=== PATIENT | male | born 1945 | race Caucasian/White ===

== ENCOUNTER → 2020-07-06 08:12 | Outpatient (BNVA) | payer MEDICARE, SELFPAY | PROVIDERS: PCP Family Medicine; Referring Provider Family Medicine; Visit Provider Internal Medicine Endocrinology, Diabetes & Metabolism | DX: Z13.89 Encounter for screening for other disorder (principal) | CPT/HCPCS: 99212 ==

== ENCOUNTER → 2020-10-03 08:41 | Outpatient (BNVA) | payer MEDICARE, OTHER, SELFPAY | PROVIDERS: PCP Family Medicine; Visit Provider Internal Medicine Endocrinology, Diabetes & Metabolism | DX: E11.21 Type 2 diabetes mellitus with diabetic nephropathy (principal); E11.42 Type 2 diabetes mellitus with diabetic polyneuropathy; E11.22 Type 2 diabetes mellitus with diabetic chronic kidney disease; I12.9 Hypertensive chronic kidney disease with stage 1 through stage 4 chronic kidney disease, or unspecified chronic kidney disease; N18.30 Chronic kidney disease, stage 3 unspecified; E66.9 Obesity, unspecified; E78.5 Hyperlipidemia, unspecified; Z79.4 Long term (current) use of insulin | CPT/HCPCS: 82947; 99212 ==

== ENCOUNTER → 2020-10-24 11:02 | Outpatient (BNVA) | payer MEDICARE, SELFPAY | PROVIDERS: PCP Family Medicine; Visit Provider Surgery Vascular Surgery | DX: I73.9 Peripheral vascular disease, unspecified (principal); I83.11 Varicose veins of right lower extremity with inflammation; I73.00 Raynaud's syndrome without gangrene | CPT/HCPCS: 99202 ==

== ENCOUNTER 2020-11-15 09:24 | Outpatient (REF) | payer MEDICARE, OTHER, SELFPAY ==
--- NOTE | ~2020-11-15 | US_ITS ---
EXAMINATION: RIGHT and LEFT LOWER EXTREMITY VENOUS ULTRASOUND (Reflux Exam) CLINICAL INDICATION: leg pain and varicose veins. COMPARISON: None. TECHNIQUE: Color flow triplex imaging and compression Doppler was performed to evaluate both the deep and the superficial systems bilaterally. To evaluate the superficial system, the examination was performed in the upright position. Color-flow Doppler ultrasound and compression ultrasound were utilized. In addition, maneuvers were utilized to demonstrate reflux. FINDINGS: 1. DEEP VENOUS ULTRASOUND OF THE RIGHT LOWER EXTREMITY: Respiratory variation, normal compression and augmented flow are noted in the right common femoral vein as well as the right popliteal vein and there is no evidence of deep venous thrombosis at these locations. There is no evidence of reflux in the deep system in either the common femoral vein or the popliteal vein. There is no evidence of a Agee's cyst. 2. SUPERFICIAL ULTRASOUND WITH DOPPLER OF RIGHT LOWER EXTREMITY: The right great saphenous vein at the saphenofemoral junction measures 7 mm, at the mid thigh 2 mm, [id number] 2 mm, [id number]-[id number] 4 mm, at mid calf 4 mm and at the ankle measures 4 mm. There is right greater saphenous vein reflux measuring 2 cm above the knee. The right small saphenous vein measures 2 mm and shows no reflux. Or perforators in the proximal calf and at the knee measuring 2 and 4 mm that do not demonstrate reflux. There are varicosities in the thigh and calf 4 mm and do not demonstrate reflux. 3. DEEP VENOUS ULTRASOUND OF THE LEFT LOWER EXTREMITY: Respiratory variation, normal compression and augmented flow are noted in the left common femoral vein as well as the left popliteal vein and there is no evidence of deep venous thrombosis at these locations. There is no evidence of reflux in the deep system in either the common femoral vein or the popliteal vein. . There is no evidence of a Agee's cyst. 4. SUPERFICIAL ULTRASOUND WITH DOPPLER OF LEFT LOWER EXTREMITY: Left great saphenous vein at the saphenofemoral junction measures 8 mm, at the mid thigh 4 mm, [id number]-[id number] 5 mm, okhqj-dos-rwtj 5 mm, at mid calf 4 mm and at the ankle measures 4 mm. There is left greater saphenous vein reflux measuring 0.9 seconds in the mid thigh, 0.4 seconds above the knee, 0.3 seconds below the knee and 2.8 seconds at the ankle. There is an accessory medial left greater saphenous vein that measures 4 mm and does not demonstrate reflux. The left small saphenous vein measures 2-3 mm and shows no reflux. As a dog behaviorist in the calf that measures 3 mm and does not demonstrate reflux. There is a varicosity in the proximal calf that measures 3 mm and demonstrates 0.4 seconds reflux. There are other small 3 and 4 mm varicosities in the high calf that do not demonstrate reflux. US/US venous duplex LE BI IMPRESSION: 1. No evidence of reflux or thrombus in the common femoral veins or popliteal veins bilaterally. 2. Bilateral greater saphenous vein reflux, left greater than right.
--- NOTE | ~2020-11-15 | US_ITS ---
EXAMINATION: NONINVASIVE ASSESSMENT OF THE ARTERIES OF BOTH LOWER EXTREMITIES WITH PVR EXAM AND BILATERAL LOWER EXTREMITY DUPLEX CLINICAL INFORMATION: Peripheral vascular disease TECHNIQUE: Ankle pulse volume recordings, ankle pressure measurements and ankle brachial indices were obtained of the lower extremity arterial system bilaterally in addition to duplex Doppler techniques with wave form analysis and measurement of velocities in the common femoral, profunda femoral, superficial femoral, popliteal and tibial arteries. The study was performed only at rest. COMPARISON: None FINDINGS: a) AT REST: RIGHT LE. The right ankle-brachial index is: 1 2. Right ankle pressure: normal. 3. Right ankle PVR waveform: normal. 4. Right direct duplex Doppler findings: Mild atherosclerotic disease with vessel wall calcification. No visible luminal narrowing/stenosis. * Common femoral artery: 134 cm/s, Diastolic flow reversal: No. Biphasic. * Superficial femoral artery (proximal, mid, distal): 103, 117 and 107 cm/s, Diastolic flow reversal: No. Biphasic. * Popliteal artery: 72 cm/s, Diastolic flow reversal: No. Biphasic. * Posterior tibial artery: 111 cm/s, Diastolic flow reversal: No. Biphasic. LEFT LE. The left ankle-brachial index is: 1.1 2. Left ankle pressure: normal. 3. Left ankle PVR waveform: normal. 4. Left direct duplex Doppler findings: Mild atherosclerotic disease with vessel wall calcification. No visible luminal narrowing/stenosis. * Common femoral artery: 119 cm/s, Diastolic flow reversal: Yes * Superficial femoral artery (proximal, mid, distal): 109, 106 and 112 cm/s, Diastolic flow reversal: Yes proximally and distally and no in the midportion with biphasic waveform. * Popliteal artery: 81 cm/s, Diastolic flow reversal: Yes * Posterior tibial artery: 94 cm/s, Diastolic flow reversal: No. Biphasic. KEIKO Reference: * >0.97-1.25 = normal - no significant arterial disease * 0.75-0.96 = mild peripheral arterial disease * 0.5-0.74 = moderate peripheral arterial disease * <0.50 = severe peripheral arterial disease US/US arterial duplex LE BI IMPRESSION: Normal ABIs bilaterally. No evidence of hemodynamically significant stenosis. There are biphasic waveforms seen throughout the right lower extremity. There are biphasic waveforms seen in the left mid SFA and posterior tibial arteries
== END 2020-11-15 09:25 | disposition home or self-care (01) ==
LOC: HO.US 09:24
PROVIDERS: Absent Provider Internal Medicine Endocrinology, Diabetes & Metabolism; PCP Family Medicine; Visit Provider Surgery Vascular Surgery
DX: I83.893 Varicose veins of bilateral lower extremities with other complications (principal); I70.213 Atherosclerosis of native arteries of extremities with intermittent claudication, bilateral legs; I83.11 Varicose veins of right lower extremity with inflammation
CPT/HCPCS: 93923; 93925; 93970

== ENCOUNTER → 2020-11-30 09:50 | Outpatient (BNVA) | payer MEDICARE, OTHER, SELFPAY | PROVIDERS: PCP Family Medicine; Visit Provider Surgery Vascular Surgery | DX: I83.12 Varicose veins of left lower extremity with inflammation (principal); I73.9 Peripheral vascular disease, unspecified | CPT/HCPCS: 99212 ==

== ENCOUNTER 2021-01-24 08:50 | Outpatient (REF) | payer MEDICARE, OTHER, SELFPAY ==
[2021-01-24 10:13] LABS: Alanine Aminotransferase 22 U/L (0-40); Albumin Level 4.3 g/dL (3.5-5.0); Alkaline Phosphatase 67 U/L (39-117); Anion Gap 15 (12-20); Aspartate Amino Transferase 20 U/L (5-37); Bilirubin Total 0.7 mg/dL (0.0-1.0); Blood Urea Nitrogen 29 mg/dL (9-16); Calcium 9.9 mg/dL (8.4-10.2); Carbon Dioxide 27 mmol/L (22-29); Chloride 100 mmol/L (96-108); Cholesterol 178 mg/dL; Estimated Average Glucose 148 mg/dL; Estimated Glomerular Filt Rate 49; Glucose Fasting 118 mg/dL (60-99); HDL Cholesterol 41 mg/dL; Hemoglobin A1c % 6.8 %; LDL Cholesterol Calculated 95 mg/dl; Potassium 4.7 mmol/L (3.3-5.1); Sodium 137 mmol/L (135-145); Total Protein 7.3 g/dL (6.5-8.0); Triglycerides 213 mg/dL
[2021-01-24 10:32] LABS: Microalbum/Creatinine Ratio Ur 62.8 ug/mg cr
[2021-01-24 10:56] LABS: Vitamin B12 298 pg/mL (200-900)
[2021-01-25 11:47] LABS: LDL Cholesterol Direct 90 mg/dL (<100)
== END 2021-01-24 08:51 | disposition home or self-care (01) ==
LOC: HO.LAB 08:50
PROVIDERS: Absent Provider Internal Medicine Endocrinology, Diabetes & Metabolism; PCP Family Medicine; Visit Provider Family Medicine
DX: E11.9 Type 2 diabetes mellitus without complications (principal); I10 Essential (primary) hypertension; E78.00 Pure hypercholesterolemia, unspecified; E83.52 Hypercalcemia; Z79.899 Other long term (current) drug therapy
CPT/HCPCS: 36415; 80053; 80061; 82043; 82550; 82607; 83036; 83721

== ENCOUNTER → 2021-01-26 10:28 | Outpatient (BNVA) | payer MEDICARE, OTHER, SELFPAY | PROVIDERS: PCP Family Medicine; Visit Provider Surgery Vascular Surgery | DX: I83.12 Varicose veins of left lower extremity with inflammation (principal) | CPT/HCPCS: 36475 ==

== ENCOUNTER 2021-01-29 11:01 | Outpatient (REF) | payer MEDICARE, OTHER, SELFPAY ==
--- NOTE | ~2021-01-29 | US_ITS ---
EXAMINATION: US VENOUS ULTRASOUND WITH DOPPLER LOWER EXTREMITY, LEFT CLINICAL INFORMATION: Post left leg RFA 01/26/2021 COMPARISON: Previous leg for stone October 2020 TECHNIQUE: Ultrasound of the deep veins is performed from the hip to the calf with compression sonography and color and pulse Doppler assessment. Spectral analysis with color-flow imaging is performed. FINDINGS: There is normal venous compression and respiratory variation and augmented flow. The visualized common femoral vein, superficial femoral vein, profunda femoral vein, popliteal vein, and the trifurcation region shows no evidence of deep venous thrombosis. The left greater saphenous vein is closed. This extends 3.2 cm from the saphenofemoral junction There is no significant popliteal fossa cyst. US/US venous duplex LE LT IMPRESSION: No DVT demonstrated in the left lower extremity.
== END 2021-01-29 11:02 | disposition home or self-care (01) ==
LOC: HO.US 11:01
PROVIDERS: Visit Provider Surgery Vascular Surgery
DX: M79.605 Pain in left leg (principal)
CPT/HCPCS: 93971

== ENCOUNTER → 2021-01-31 08:51 | Outpatient (BNVA) | payer MEDICARE, OTHER, SELFPAY | PROVIDERS: PCP Family Medicine; Visit Provider Internal Medicine Endocrinology, Diabetes & Metabolism | DX: E11.21 Type 2 diabetes mellitus with diabetic nephropathy (principal); E11.42 Type 2 diabetes mellitus with diabetic polyneuropathy; E11.22 Type 2 diabetes mellitus with diabetic chronic kidney disease; I12.9 Hypertensive chronic kidney disease with stage 1 through stage 4 chronic kidney disease, or unspecified chronic kidney disease; N18.30 Chronic kidney disease, stage 3 unspecified; E78.5 Hyperlipidemia, unspecified; E66.9 Obesity, unspecified; Z79.4 Long term (current) use of insulin | CPT/HCPCS: 82947; 99212 ==

== ENCOUNTER → 2021-02-20 12:00 | Outpatient (BNVA) | payer MEDICARE, OTHER, SELFPAY | PROVIDERS: PCP Family Medicine; Visit Provider Surgery Vascular Surgery | DX: I83.12 Varicose veins of left lower extremity with inflammation (principal) | CPT/HCPCS: 99212 ==

== ENCOUNTER 2021-10-02 08:09 | Outpatient (REF) | payer MEDICARE, OTHER, SELFPAY ==
[2021-10-02 09:20] LABS: Anion Gap 11 (12-20); Blood Urea Nitrogen 47 mg/dL (9-16); Carbon Dioxide 29 mmol/L (22-29); Chloride 100 mmol/L (96-108); Estimated Glomerular Filt Rate 50; Potassium 4.2 mmol/L (3.3-5.1); Sodium 136 mmol/L (135-145)
[2021-10-02 09:23] LABS: Estimated Average Glucose 137 mg/dL; Hemoglobin A1c % 6.4 %
== END 2021-10-02 08:10 | disposition home or self-care (01) ==
LOC: HO.LAB 08:09
PROVIDERS: PCP Family Medicine; Visit Provider Family Medicine
DX: I10 Essential (primary) hypertension (principal); E11.9 Type 2 diabetes mellitus without complications
CPT/HCPCS: 36415; 80051; 82565; 83036; 84520

== ENCOUNTER → 2021-11-20 09:55 | Outpatient (BNVA) | payer MEDICARE, OTHER, SELFPAY | PROVIDERS: PCP Family Medicine; Visit Provider Nurse Practitioner Gerontology | DX: E11.21 Type 2 diabetes mellitus with diabetic nephropathy (principal); E11.42 Type 2 diabetes mellitus with diabetic polyneuropathy; E11.22 Type 2 diabetes mellitus with diabetic chronic kidney disease; N18.30 Chronic kidney disease, stage 3 unspecified; E78.5 Hyperlipidemia, unspecified; E66.9 Obesity, unspecified; I10 Essential (primary) hypertension; Z79.4 Long term (current) use of insulin; Z68.34 Body mass index [BMI] 34.0-34.9, adult | CPT/HCPCS: 82947; 99212 ==

== ENCOUNTER 2022-02-07 07:13 | Outpatient (REF) | payer MEDICARE, OTHER, SELFPAY ==
[2022-02-07 08:22] LABS: Alanine Aminotransferase 38 U/L (0-40); Albumin Level 4.3 g/dL (3.5-5.0); Alkaline Phosphatase 55 U/L (39-117); Anion Gap 12 (12-20); Aspartate Amino Transferase 30 U/L (5-37); Bilirubin Total 0.8 mg/dL (0.0-1.0); Blood Urea Nitrogen 40 mg/dL (9-16); Calcium 9.9 mg/dL (8.4-10.2); Carbon Dioxide 28 mmol/L (22-29); Chloride 100 mmol/L (96-108); Cholesterol 182 mg/dL; Estimated Glomerular Filt Rate 48; Glucose Fasting 139 mg/dL (60-99); HDL Cholesterol 54 mg/dL; LDL Cholesterol Calculated 91 mg/dl; Potassium 4.4 mmol/L (3.3-5.1); Sodium 136 mmol/L (135-145); Total Protein 7.3 g/dL (6.5-8.0); Triglycerides 186 mg/dL
[2022-02-07 10:23] LABS: Creatinine Urine 91.05 mg/dL; Microalbum/Creatinine Ratio Ur 40.6 ug/mg cr
== END 2022-02-07 07:14 | disposition home or self-care (01) ==
LOC: HO.LAB 07:13
PROVIDERS: PCP Family Medicine; Visit Provider Nurse Practitioner Gerontology
DX: E11.42 Type 2 diabetes mellitus with diabetic polyneuropathy (principal)
CPT/HCPCS: 36415; 80053; 80061; 82043

== ENCOUNTER → 2022-02-20 09:21 | Outpatient (BNVA) | payer MEDICARE, OTHER, SELFPAY | PROVIDERS: PCP Family Medicine; Visit Provider Nurse Practitioner Gerontology | DX: E11.42 Type 2 diabetes mellitus with diabetic polyneuropathy (principal); E11.21 Type 2 diabetes mellitus with diabetic nephropathy; E11.22 Type 2 diabetes mellitus with diabetic chronic kidney disease; I12.9 Hypertensive chronic kidney disease with stage 1 through stage 4 chronic kidney disease, or unspecified chronic kidney disease; N18.30 Chronic kidney disease, stage 3 unspecified; E78.5 Hyperlipidemia, unspecified; E66.9 Obesity, unspecified; Z79.4 Long term (current) use of insulin; Z68.36 Body mass index [BMI] 36.0-36.9, adult | CPT/HCPCS: 82947; 99212 ==

== ENCOUNTER 2022-06-12 08:00 | Outpatient (REF) | payer MEDICARE, OTHER, SELFPAY ==
[2022-06-12 08:58] LABS: Estimated Average Glucose 154 mg/dL
[2022-06-12 09:19] LABS: Alanine Aminotransferase 20 U/L (0-40); Aspartate Amino Transferase 26 U/L (5-37); Blood Urea Nitrogen 30 mg/dL (9-16); Cholesterol 135 mg/dL; Estimated Glomerular Filt Rate 55; HDL Cholesterol 44 mg/dL; LDL Cholesterol Calculated 57 mg/dl; Triglycerides 173 mg/dL
[2022-06-12 13:42] LABS: Glucose Fasting 135 mg/dL (60-99)
== END 2022-06-12 08:01 | disposition home or self-care (01) ==
LOC: HO.LAB 08:00
PROVIDERS: PCP Family Medicine; Visit Provider Family Medicine
DX: I10 Essential (primary) hypertension (principal); E11.9 Type 2 diabetes mellitus without complications; E78.00 Pure hypercholesterolemia, unspecified
CPT/HCPCS: 36415; 80061; 82550; 82565; 82947; 83036; 84450; 84460; 84520

== ENCOUNTER 2022-12-02 12:37 | Outpatient (REF) | payer MEDICARE, OTHER, SELFPAY ==
--- NOTE | ~2022-12-02 | XR_ITS ---
EXAMINATION: XR CHEST CLINICAL INFORMATION: Wheezing COMPARISON: Previous chest x-ray July 2019 TECHNIQUE: 2 views of the chest were obtained. FINDINGS: The cardiac silhouette is upper normal in size but stable. Hilar and mediastinal contours are unremarkable.. The lungs are clear. No pleural effusion or pneumothorax. Degenerative changes of the spine. XR/XR chest 2V IMPRESSION: No evidence for acute disease in the chest.
== END 2022-12-02 12:38 | disposition home or self-care (01) ==
LOC: HO.XRAY 12:37
PROVIDERS: PCP Family Medicine; Visit Provider Family Medicine
DX: R06.2 Wheezing (principal)
CPT/HCPCS: 71046

== ENCOUNTER 2023-02-28 09:41 | Outpatient (REF) | payer MEDICARE, OTHER, SELFPAY ==
[2023-02-28 11:27] LABS: Estimated Average Glucose 143 mg/dL; Hemoglobin A1c % 6.6 %
== END 2023-02-28 09:42 | disposition home or self-care (01) ==
LOC: HO.LAB 09:41
PROVIDERS: PCP Family Medicine; Visit Provider Family Medicine
DX: E11.9 Type 2 diabetes mellitus without complications (principal); I10 Essential (primary) hypertension; K75.81 Nonalcoholic steatohepatitis (NASH); E83.52 Hypercalcemia
CPT/HCPCS: 36415; 80051; 82043; 82310; 82947; 83036; 84450; 84460; 84520

== ENCOUNTER 2023-10-25 08:14 | Outpatient (REF) | payer MEDICARE, OTHER, SELFPAY ==
[2023-10-25 08:53] LABS: Estimated Average Glucose 157 mg/dL; Hemoglobin A1c % 7.1 % (<6.0)
[2023-10-25 09:08] LABS: Alanine Aminotransferase 22 U/L (0-40); Anion Gap 14 (12-20); Aspartate Amino Transferase 26 U/L (5-37); Blood Urea Nitrogen 26 mg/dL (9-16); Carbon Dioxide 29 mmol/L (22-29); Chloride 102 mmol/L (96-108); Cholesterol 166 mg/dL (<200); Estimated Glomerular Filt Rate 55; Glucose Fasting 112 mg/dL (60-99); HDL Cholesterol 57 mg/dL (>40); LDL Cholesterol Calculated 84 mg/dL (<100); Potassium 3.8 mmol/L (3.3-5.1); Sodium 141 mmol/L (135-145); Triglycerides 128 mg/dL (<150)
[2023-10-25 09:51] LABS: Creatinine Urine 91.13 mg/dL; Microalbum/Creatinine Ratio Ur 107.5 ug/mg cr (<30)
== END 2023-10-25 08:15 | disposition home or self-care (01) ==
LOC: HO.LAB 08:14
PROVIDERS: PCP Family Medicine; Visit Provider Family Medicine
DX: I10 Essential (primary) hypertension (principal); E11.9 Type 2 diabetes mellitus without complications; E78.00 Pure hypercholesterolemia, unspecified; Z79.899 Other long term (current) drug therapy
CPT/HCPCS: 36415; 80051; 80061; 82043; 82550; 82565; 82570; 82947; 83036; 84450; 84460; 84520

== ENCOUNTER 2024-06-03 09:08 | Outpatient (REF) | payer MEDICARE, OTHER, SELFPAY ==
[2024-06-03 10:06] LABS: Estimated Average Glucose 157 mg/dL; Hemoglobin A1C 207.7991 umol/L; Hemoglobin A1c % 7.1 % (<6.0); Total Hemoglobin (HGBA1C) 3818.6153 umol/L
[2024-06-03 10:44] LABS: Alanine Aminotransferase 35 U/L (0-40); Anion Gap 12 (12-20); Aspartate Amino Transferase 30 U/L (5-37); Blood Urea Nitrogen 28 mg/dL (9-16); Carbon Dioxide 30 mmol/L (22-29); Chloride 100 mmol/L (96-108); Estimated Glomerular Filt Rate 46; Glucose Fasting 153 mg/dL (60-99); Potassium 4.2 mmol/L (3.3-5.1); Sodium 138 mmol/L (135-145)
== END 2024-06-03 09:09 | disposition home or self-care (01) ==
LOC: HO.LAB 09:08
PROVIDERS: PCP Family Medicine; Visit Provider Family Medicine
DX: I10 Essential (primary) hypertension (principal); E11.9 Type 2 diabetes mellitus without complications; K75.81 Nonalcoholic steatohepatitis (NASH)
CPT/HCPCS: 36415; 80051; 82565; 82947; 83036; 84450; 84460; 84520

== ENCOUNTER → 2024-06-14 12:38 | Outpatient (REF) | payer MEDICARE, OTHER, SELFPAY ==
--- NOTE | 2024-06-14 12:44 | ECG_ITS ---
Test Reason : IRREG HEARTBEAT Blood Pressure : / mmHG Vent. Rate : 071 BPM Atrial Rate : 000 BPM P-R Int : 000 ms QRS Dur : 094 ms QT Int : 386 ms P-R-T Axes : 000 041 080 degrees QTc Int : 419 ms Atrial fibrillation Abnormal ECG When compared with ECG of 04-AUG-2019 14:03, Atrial fibrillation has replaced Sinus rhythm ST no longer elevated in Inferior leads Referred By: Artem Dahl Electronically Signed By:Dyllan Weaver
== END ==
LOC: HO.CARD 12:38
PROVIDERS: PCP Family Medicine; Visit Provider Family Medicine
DX: R00.2 Palpitations (principal); I49.1 Atrial premature depolarization; I49.3 Ventricular premature depolarization
CPT/HCPCS: 93005

== ENCOUNTER → 2024-06-14 12:44 | Outpatient (BNV) | payer MEDICARE, OTHER, SELFPAY | PROVIDERS: PCP Family Medicine; Visit Provider Internal Medicine Cardiovascular Disease | DX: I48.91 Unspecified atrial fibrillation (principal) | CPT/HCPCS: 93010 ==

== ENCOUNTER → 2024-06-18 08:44 | Outpatient (REF) | payer MEDICARE, OTHER, SELFPAY ==
--- NOTE | 2024-06-18 08:48 | CA_ITS ---
Transthoracic Echocardiogram Patient (Last, First, Middle): Scar Bee C Gender: Male Date of : 1945 Age: 79 Procedure Date: 06/18/2024 Procedure Type: Transthoracic Echocardiogram Location: OP Height: 185.42 cm Weight: 124.74 kg BSA: 2.46 m2 Heart Rate: bpm BP: 130 / 68 mmHg Optometrist Assistant: SB Referring MD: Artem Dahl MD Symptoms: I10 HTN I48.91 AFIB E78,00 PURE HYPERCHOLESTEROLEMIA Study Quality: Adequate w contrast ECG Rhythm: Atrial Fibrillation Conclusions: - Normal left ventricular size and systolic function. The visually estimated ejection fraction is between 60-65%. There is no evidence of regional wall motion abnormalities. Diastolic function is indeterminate on the basis of available data. - Normal right ventricular cavity size. There is borderline right ventricular systolic function. - There is mild dilatation of the ascending aorta measuring 3.90 cm. Findings Procedure Information Contrast agent, definity, is being given per protocol without apparent complications. Left Ventricle Normal left ventricular size and systolic function. The visually estimated ejection fraction is between 60-65%. There is no evidence of regional wall motion abnormalities. Diastolic function is indeterminate on the basis of available data. Right Ventricle Normal right ventricular cavity size. There is borderline right ventricular systolic function. Atria The left atrium is likely dilated. The right atrium is normal in size. Aortic Valve There is a normal trileaflet aortic valve. There is mild calcification of the aortic valve. There is no aortic valve stenosis. There is no aortic valve regurgitation. Mitral Valve Normal mitral valve structure and function. There is no mitral valve regurgitation. There is no mitral valve stenosis. Pulmonic Valve The pulmonic valve is likely normal. Tricuspid Valve Normal tricuspid valve structure. There is trace tricuspid valve regurgitation. Tricuspid regurgitation envelope is inadequate for calculation of right ventricular systolic pressure. Normal right atrial pressure. Great Vessels There is mild dilatation of the ascending aorta measuring 3.90 cm. Venous The inferior vena cava is dilated and collapses greater than 50% with inspiration. Pericardium/Pleural There is no evidence of pericardial effusion. Prior Study Comparison No prior study available for comparison. Measurements 2D Linear Measurements IVSd: 1.21 0.6-0.9/0.6-1.0 cm LVIDd: 5.07 3.9-5.3/4.2-5.9 cm LVIDd Index: 2.06 2.4-3.2/2.2-3.1 cm/m2 LVIDs: 2.85 2.0-3.6 cm LVPWd: 0.66 0.7-1.1 cm LA Diam: 4.70 2.7-3.8/3.0-4.0 cm LAIDs Index: 1.91 1.5-2.3 cm/m2 LV Mass: 212.54 67-162/88-224 g LV Mass Index: 86.40 43-95/49-115 g/m2 LVOT Diam: 2.30 3.0+(-)1.3 cm 2D Systolic Function EF 4C: 58.50 >55% EF 2C: 65.60 >55% EF BiP: 62.80 >55% Mitral Valve MV Pk E: 1.06 Aortic Valve AoV Pk Fransico: 1.30 AoV Pk Grad: 7.00 JESUSITA: 2.77 LVOT LVOT Pk Fransico: 0.87 LVOT Mn Fransico: 0.55 LVOT VTI: 0.16 LVOT Pk Grad: 3.00 LVOT Mn Grad: 1.00 LVOT Diam: 2.30 LVOT Area: 4.15 Diastolic Function MV Pk E: 1.06 Right Ventricle TAPSE (mm): 14.60 TVS' Fransico: 11.40 Tricuspid Valve RA Press: 8.00 Great Vessels Aorta Sinus of Valsalva: 3.60 2.0-3.5 cm Ao Asc: 3.90 2.1-3.4 cm Pulmonary Valve PV Pk Fransico: 0.62 Peak PV Grad: 2.00 Updated in Other Vendor System with Status of Final Dyllan Weaver MD electronically signed on 06/20/2024 7:28:38 PM with status of Final
== END ==
LOC: HO.CARD 08:44
PROVIDERS: PCP Family Medicine; Visit Provider Family Medicine
DX: I10 Essential (primary) hypertension (principal); I48.91 Unspecified atrial fibrillation; E78.00 Pure hypercholesterolemia, unspecified
CPT/HCPCS: 93306; Q9957

== ENCOUNTER → 2024-06-18 08:48 | Outpatient (BNV) | payer MEDICARE, OTHER, SELFPAY | PROVIDERS: PCP Family Medicine; Visit Provider Internal Medicine Cardiovascular Disease | DX: I35.8 Other nonrheumatic aortic valve disorders (principal); I77.810 Thoracic aortic ectasia; I48.91 Unspecified atrial fibrillation | CPT/HCPCS: 93306 ==

== ENCOUNTER 2024-06-24 12:59 | Outpatient (AMB) | payer MEDICARE, OTHER, SELFPAY ==
[2024-06-24 13:30] VITALS: BP 122/68; PULSE 87; BMI 36.9
--- NOTE | 2024-06-24 13:30 | MHC.OFFVIS ---
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 Allergies enviromental Allergy (Unknown, Verified 02/20/22 09:31) Sneezing pets Allergy (Unknown, Verified 02/20/22 09:31) Itching Medication List - Last Reconciled 06/24/24 by Javed Julio MD amlodipine 10 mg PO DAILY atorvastatin 80 mg PO DAILY bisoprolol-hydrochlorothiazide 5-6.25 mg 1 tab PO DAILY blood sugar diagnostic (FreeStyle Lite Strips) 3 times a day insulin degludec 24 units (0.24 mL) subcut DAILY 90 days irbesartan 300 mg PO DAILY lancets (FreeStyle Lancets) 3 times a day pen needle, diabetic (BD Celina 2nd Gen Pen Needle) once a day rivaroxaban (Xarelto) 20 mg PO DAILY HPI Comments Details: Job is here for consultation regarding atrial fibrillation. Recently seen by PCP who referred him for an EKG for irregular heart rate and that showed atrial fibrillation. Subsequently, he had an echocardiogram that showed preserved LVEF. Patient has many comorbidities including diabetes, hypertension, dyslipidemia, obesity. Patient denies any complaints like palpitations or shortness of breath or angina or in fact anything along those lines. He states he feels fine. He does not feel the atrial fibrillation. Hence unknown duration. He is not aware of any sleep apnea. History of stroke several years ago but unknown details. 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 Social History (Updated 11/20/21 @ 10:08 by [facility]) Household Members: Spouse Alcohol intake: current Alcohol intake frequency: holidays/special occasions only Patient Tobacco Use Status: Never used Tobacco Review of Systems Const Denies weakness ENT Denies dizziness Card Denies chest pain, Denies chest pain with activity, Denies syncope, Denies rapid heart rate, Denies pedal edema, Denies edema, Denies leg edema, Denies lightheadedness, Denies palpitations, Denies dyspnea, Denies dyspnea on exertion and Denies orthopnea Resp Denies cough, Denies dyspnea and Denies dyspnea on exertion GI Denies hematochezia and Denies change in stool character Musc Denies abnormal gait, Denies muscle cramps, Denies muscle weakness, Denies numbness, Denies radiating pain into limb and Denies tingling Neuro Denies abnormal gait, Denies dizziness, Denies syncope, Denies numbness, Denies tingling and Denies weakness Endo Denies palpitations Physical Exam Vital Signs: Last Vital Signs Pulse 87 06/24/24 13:30 BP 122/68 06/24/24 13:30 BMI result Body Mass Index 36.9 Const General: comfortable and no acute distress Orientation/consciousness: patient oriented x3 HEENT Other: Unremarkable Head: Yes normal to inspection Neck Neck: Yes normal visual inspection Chest Chest palpation & inspection: normal inspection of the chest Resp Auscultation: clear to auscultation bilaterally Cardio Palpation: normal PMI Heart sounds: S1 normal heart sound present, S2 normal heart sound present, no gallops, no murmurs and no rubs GI Palpation (GI): Soft to palpation Back/Spine/Pelvis Other: unremarkable Skin General skin exam: no rashes or lesions noted Neuro General: patient oriented x3 Extrem General: Yes normal to inspection Psych Mental Status: mental status grossly normal Assessment & Plan Assessment & Plan (1) Atrial fibrillation by electrocardiogram: Code(s): I48.91 - Unspecified atrial fibrillation Category: Medical (2) Diabetes type 2, controlled: Code(s): E11.9 - Type 2 diabetes mellitus without complications Category: Medical (3) Obesity (BMI 30-39.9): Code(s): E66.9 - Obesity, unspecified Category: Medical (4) Hypertension: Code(s): I10 - Essential (primary) hypertension Category: Medical (5) Dyslipidemia: Code(s): E78.5 - Hyperlipidemia, unspecified Category: Medical Plan In the recent EKG from last week, atrial fibrillation at a rate of 71/Min. In the echocardiogram, LVEF 60-65%. No wall motion abnormalities. No significant valvular abnormalities. Overall, recently identified atrial fibrillation of unknown duration with a history of stroke years ago. Many comorbidities. For anticoagulation, he is already on the Xarelto started by his own PCP. May continue that. Rate is already controlled on beta-blockers. We will check Holter monitor for further evaluation. Otherwise, numerous cardiovascular risk factors including diabetes, hypertension, dyslipidemia, obesity -and these need optimal management. Possibly consider stress testing in the future but he has got no overt anginal symptoms. We discussed about testing for obstructive sleep apnea but he would like to hold off on that. Follow-up in 3 months or so. Orders: Orders ECG 3 day holter monitor Today I48.91 - Unspecified atrial fibrillation Coding Level of Care Code New Pt Level 4 (18610) Diagnoses Atrial fibrillation by electrocardiogram I48.91 Diabetes type 2, controlled E11.9 Obesity (BMI 30-39.9) E66.9 Hypertension I10 Dyslipidemia E78.5
== END 2024-06-24 13:54 | disposition home or self-care (01) ==
PROVIDERS: PCP Family Medicine; Visit Provider Internal Medicine
DX: I48.91 Unspecified atrial fibrillation (principal); E11.9 Type 2 diabetes mellitus without complications; E66.9 Obesity, unspecified; I10 Essential (primary) hypertension; E78.5 Hyperlipidemia, unspecified
CPT/HCPCS: 99204

== ENCOUNTER → 2024-06-24 12:59 | Outpatient (BNVA) | payer MEDICARE, OTHER, SELFPAY | PROVIDERS: PCP Family Medicine; Visit Provider Internal Medicine | DX: I48.91 Unspecified atrial fibrillation (principal); E11.42 Type 2 diabetes mellitus with diabetic polyneuropathy; E11.21 Type 2 diabetes mellitus with diabetic nephropathy; I10 Essential (primary) hypertension; E78.5 Hyperlipidemia, unspecified; E66.9 Obesity, unspecified; Z68.36 Body mass index [BMI] 36.0-36.9, adult; Z79.4 Long term (current) use of insulin | CPT/HCPCS: 99202 ==

== ENCOUNTER → 2024-07-12 10:46 | Outpatient (REF) | payer MEDICARE, OTHER, SELFPAY ==
--- NOTE | 2024-07-12 10:51 | HM_ITS ---
* Total monitoring time 3 days. * Underlying rhythm is atrial fibrillation. * Average ventricular rate 76/Min. About 0.45% of the time, rate > 100/Min. * Rare ventricular ectopy. * No significant pauses or high-grade AV blocks. * No patient markers or diary events. MTDD
== END ==
LOC: HO.CARD 10:46
PROVIDERS: PCP Family Medicine; Visit Provider Internal Medicine
DX: I48.91 Unspecified atrial fibrillation (principal)
CPT/HCPCS: 93242

== ENCOUNTER → 2024-07-12 10:51 | Outpatient (BNV) | payer MEDICARE, OTHER, SELFPAY | PROVIDERS: PCP Family Medicine; Visit Provider Internal Medicine | DX: I48.91 Unspecified atrial fibrillation (principal) | CPT/HCPCS: 93244 ==

== ENCOUNTER 2024-11-09 13:25 | Outpatient (AMB) | payer MEDICARE, OTHER, SELFPAY ==
[2024-11-09 13:43] VITALS: BP 120/64; PULSE 80; BMI 38.3
--- NOTE | 2024-11-09 13:43 | MHC.OFFVIS ---
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 Patient with medical history of diabetes, hypertension, dyslipidemia, stroke, and obesity. Patient was recently seen in the office for newly diagnosed atrial fibrillation, after which he was started on Xarelto. Patient underwent an echocardiogram and Holter monitor following this. The patient reports feeling well overall and denies any cardiac symptoms including exertional chest pain, shortness of breath, palpitations, dizziness, fatigue, orthopnea, PND, leg edema, presyncope, or syncope. He states that he has been compliant with his medications. 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 Social History Household Members: Spouse Alcohol intake: current Alcohol intake frequency: holidays/special occasions only Patient Tobacco Use Status: Never used Tobacco Review of Systems Const Denies chills, Denies fatigue, Denies fever(s), Denies weight gain and Denies weight loss ENT Denies dizziness Card Denies chest pain, Denies leg edema, Denies lightheadedness, Denies palpitations, Denies dyspnea on exertion, Denies orthopnea and Denies other Resp Denies cough and Denies dyspnea on exertion GI Denies hematochezia and Denies change in stool character Musc Denies abnormal gait, Denies muscle weakness, Denies numbness, Denies radiating pain into limb and Denies tingling Neuro Denies abnormal gait, Denies dizziness, Denies numbness and Denies tingling Endo Denies fatigue and Denies palpitations Physical Exam Vital Signs: Last Vital Signs Pulse 80 11/09/24 13:43 BP 120/64 11/09/24 13:43 BMI result Body Mass Index 38.3 Const General: cooperative, healthy appearing, comfortable and no acute distress Orientation/consciousness: patient oriented x3 HEENT Head: Yes normal to inspection Neck Neck: Yes normal visual inspection, Yes trachea midline and Yes supple Chest Chest palpation & inspection: normal inspection of the chest Resp Effort & Inspection: normal respiratory effort Auscultation: clear to auscultation bilaterally, no crackles, no rales, no rhonchi and no wheezes Cardio Jugular venous distension: no JVD Palpation: normal PMI Rate: regular rate Heart sounds: S1 normal heart sound present, S2 normal heart sound present, no click, no gallops, no murmurs and no rubs Peripheral pulses: Peripheral pulses 2+ throughout GI Inspection: Yes normal to inspection Palpation (GI): Soft to palpation Auscultation: normal bowel sounds Skin General skin exam: no rashes or lesions noted Neuro General: patient oriented x3 Extrem General: Yes normal to inspection, No no pedal edema and No calf tenderness Psych Appearance: grossly normal Mental Status: mental status grossly normal Speech and movement: Normal speech and movement present Assessment & Plan Assessment & Plan (1) Persistent atrial fibrillation: Code(s): I48.19 - Other persistent atrial fibrillation Category: Medical Plan: 06/18/2024-echo study showed a normal EF between 60-65%, borderline right ventricular systolic function, mild dilation of ascending aorta at 3.90 cm. We will monitor this with repeat echoes periodically. 07/12/2024-patient underwent a Holter monitor study for 3 days showing AFib, controlled rate, and rare ventricular ectopy. Continue with Xarelto for full anticoagulation therapy. Denies any signs of bleeding. Continue with the combination drug bisoprolol and hydrochlorothiazide, rate is controlled at this time. Patient is asymptomatic and clinically stable at this time. In case of any symptoms developing in the future, we can get a myocardial perfusion study to look for any ischemic changes. (2) Hypertension: Code(s): I10 - Essential (primary) hypertension Category: Medical Plan: Blood pressure today is well-controlled. Advised patient to continue monitoring blood pressures at home. Continue current regimen. Ideally, blood pressure goal less than 130/80. (3) Dyslipidemia: Code(s): E78.5 - Hyperlipidemia, unspecified Category: Medical Plan: Most recent LDL at 84, not at goal. Continue high-dose statin therapy. Ideally, LDL goal for patient less than 70. Patient states he has upcoming labs with his PCP. May need Zetia therapy in addition, if LDL continues to be elevated. (4) Diabetes type 2, controlled: Code(s): E11.9 - Type 2 diabetes mellitus without complications Category: Medical Plan: Most recent A1c 7.1 %. Patient states his blood sugars at home have been in the 110s to 120s. Continue with aggressive diabetic management. Ideally, A1c goal less than 7.0%. (5) Obesity (BMI 30-39.9): Code(s): E66.9 - Obesity, unspecified Category: Medical Plan: Continues to deny sleep study test. Advised heart healthy diet, regular exercise, losing weight, and aggressive management of vascular risk factors. Follow-up in 6 months, sooner if needed. In the interim, patient will call the office with any concerns or change in symptoms. This note was generated using voice recognition software. 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 Coding Level of Care Code Est Pt Level 4 (66772) Complex EM visit Add On G2211 Diagnoses Persistent atrial fibrillation I48.19 Hypertension I10 Dyslipidemia E78.5 Diabetes type 2, controlled E11.9 Obesity (BMI 30-39.9) E66.9 Time Spent (min) 32 Comment Time spent in reviewing the chart, test results, assessment, counseling and documentation.
== END 2024-11-09 14:11 | disposition home or self-care (01) ==
LOC: HO.HCS 13:26
PROVIDERS: PCP Family Medicine
DX: I48.19 Other persistent atrial fibrillation (principal); I10 Essential (primary) hypertension; E78.5 Hyperlipidemia, unspecified; E11.9 Type 2 diabetes mellitus without complications; E66.9 Obesity, unspecified
CPT/HCPCS: 99214; G2211

== ENCOUNTER → 2024-11-09 13:25 | Outpatient (BNVA) | payer MEDICARE, OTHER, SELFPAY | PROVIDERS: PCP Family Medicine | DX: I10 Essential (primary) hypertension (principal); I48.19 Other persistent atrial fibrillation; E11.9 Type 2 diabetes mellitus without complications; E78.5 Hyperlipidemia, unspecified; E66.9 Obesity, unspecified; Z86.73 Personal history of transient ischemic attack (TIA), and cerebral infarction without residual deficits; Z79.01 Long term (current) use of anticoagulants; Z68.38 Body mass index [BMI] 38.0-38.9, adult | CPT/HCPCS: 99212 ==

== ENCOUNTER 2024-11-23 08:36 | Outpatient (REF) | payer MEDICARE, OTHER, SELFPAY ==
[2024-11-23 09:36] LABS: Estimated Average Glucose 174 mg/dL; Hemoglobin A1C 223.9716 umol/L; Hemoglobin A1c % 7.7 % (<6.0); Total Hemoglobin (HGBA1C) 3698.4411 umol/L
[2024-11-23 10:09] LABS: Alanine Aminotransferase 42 U/L (0-40); Anion Gap 11 (12-20); Aspartate Amino Transferase 51 U/L (5-37); Blood Urea Nitrogen 28 mg/dL (9-16); Carbon Dioxide 27 mmol/L (22-29); Chloride 104 mmol/L (96-108); Estimated Glomerular Filt Rate 58; Glucose Fasting 132 mg/dL (60-99); Potassium 4.4 mmol/L (3.3-5.1); Sodium 138 mmol/L (135-145)
[2024-11-23 10:23] LABS: Creatinine Urine 76.91 mg/dL; Microalbum/Creatinine Ratio Ur 184.6 ug/mg cr (<30)
== END 2024-11-23 08:37 | disposition home or self-care (01) ==
LOC: HO.LAB 08:36
PROVIDERS: PCP Family Medicine; Visit Provider Family Medicine
DX: I10 Essential (primary) hypertension (principal); E78.00 Pure hypercholesterolemia, unspecified; Z79.899 Other long term (current) drug therapy; E11.9 Type 2 diabetes mellitus without complications
CPT/HCPCS: 36415; 80051; 82043; 82550; 82565; 82570; 82947; 83036; 84450; 84460; 84520

== ENCOUNTER 2025-01-01 19:24 | Inpatient (IN) | payer MEDICARE, OTHER, SELFPAY ==
--- NOTE | ~2025-01-01 | CT_ITS ---
CLINICAL HISTORY: SOB --- Additional Notes or Special Instructions: concern for pericardial effusion on CXR CT angiography chest using contrast. 3-D postprocessing Comparison: CR - XR CHEST 1V - 01/01/25 20:23 EDT Findings: Motion artifact present. No pulmonary embolism visualized to the level of the lobar pulmonary arteries. The segmental and subsegmental pulmonary arterial branches are not well evaluated on this examination due to motion artifact. No thoracic aorta aneurysm. Mildly enlarged mediastinal lymph nodes are present. Heart size within normal limits. Small to moderate pericardial effusion. Coronary artery calcifications are identified. There are small bilateral pleural effusions. Possible subtle ground-glass opacities in interstitial prominence within the lungs. Evaluation is limited by motion artifact. No pneumothorax identified. Minimal compressive bilateral lower lobe atelectasis. Visualized upper abdomen unremarkable. No acute fractures. Extensive multilevel degenerative endplate changes are present at the thoracic spine. Impression: 1. Motion limited examination. No pulmonary embolism identified to the level of the lobar arteries. The segmental and subsegmental pulmonary arterial branches are not well evaluated on this examination. 2. Small to moderate pericardial effusion. 3. Small bilateral pleural effusions with possible vague ground-glass opacities/interstitial prominence within the lungs. Evaluation is limited by motion artifact. Pulmonary edema is not excluded. Clinical correlation is advised. 4. Mild mediastinal lymphadenopathy. This document has been electronically signed by: Tuan Thomas MD on 01/01/2025 23:02:48
--- NOTE | ~2025-01-01 | XR_ITS ---
CLINICAL HISTORY: SOB --- Additional Notes or Special Instructions: breathing treatment (1950)-[place] 1 view chest x-ray. Comparison: CR/SR - XR CHEST 2V - 12/02/22 12:52 EDT Findings: There are minimal left basilar opacities with minimal blunting of the bilateral costophrenic angles. No pneumothorax. Heart size is mildly enlarged. Impression: 1. Mild cardiomegaly with minimal left basilar atelectasis versus infiltrates and minimal bilateral pleural effusions. This document has been electronically signed by: Tuan Thomas MD on 01/01/2025 21:09:05
--- NOTE | 2025-01-01 19:26 | ED_ITS ---
HPI - General Adult General Chief complaint: Dyspnea Stated complaint: sob,fatigue Time Seen by Provider: 01/01/25 20:53 Source: patient Limitations: no limitations History of Present Illness ED Provider: Any Kaur PA-C HPI narrative: 79-year-old male with a history of hypertension, hyperlipidemia, diabetes AFib on Xarelto, chronic kidney disease, peripheral arterial disease, morbid obesity presents with progressive, worsening shortness of breath x 3-4 days. Patient states he has become dyspneic with a simple activities of daily living. Denies unintentional weight gain, new pedal edema , he has chronic orthopnea. Denies chest pain, recent cough or cold symptoms no fever. Related Data Home Medications ?Medication ?Instructions ?Recorded ?Confirmed bisoprolol 5 1 tab PO DAILY 07/06/20 06/24/24 mg-hydrochlorothiazide 6.25 mg tablet irbesartan 300 mg tablet 300 mg PO DAILY 07/06/20 06/24/24 rivaroxaban 20 mg tablet (Xarelto) 20 mg PO DAILY 06/24/24 06/24/24 Previous Rx's ?Medication ?Instructions ?Recorded blood sugar diagnostic (FreeStyle #300 ea 01/31/21 Lite Strips) lancets 28 gauge (FreeStyle #300 ea 01/31/21 Lancets) pen needle, diabetic 32 gauge x #100 ea 01/31/21 (BD Celina 2nd Gen Pen Needle) atorvastatin 80 mg tablet 80 mg PO DAILY #90 tabs 01/16/22 amlodipine 10 mg tablet 10 mg PO DAILY #30 tabs 02/20/22 insulin degludec 100 unit/mL (3 24 unit (0.24 mL) subcut DAILY 90 02/20/22 mL) subcutaneous pen days #30 mL Allergies Allergy/AdvReac Type Severity Reaction Status Date / Time enviromental Allergy Unknown Sneezing Verified 01/01/25 19:28 pets Allergy Unknown Itching Verified 01/01/25 19:28 Review of Systems 2 Review of Systems: Yes all other systems are reviewed and are negative Constitutional: Constitutional: Reports fatigue, Denies fever(s) and Denies malaise Cardiovascular: Cardiovascular: Denies chest pain, Reports dyspnea and Reports dyspnea on exertion Respiratory: Respiratory: Denies chest congestion, Denies cough, Reports dyspnea, Reports dyspnea on exertion and Denies wheezing Endocrine: Endocrine: Reports fatigue Allergic/Immunologic: Allergic/Immunologic: Denies wheezing [facility] Past Medical History Attestation statement: The following information was validated with the patient. 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 Social History Social History Household Members: Spouse Alcohol intake: current Alcohol intake frequency: holidays/special occasions only Patient Tobacco Use Status: Never used Tobacco Smoked in Last 30 Days: No Use of substances other than those prescribed or required for medical reasons: No Advance Directives: Yes Advance Directives Information Provided: No Advance Directives on File: No Do you have a plan to hurt others: No Plan Physical Exam ED Vital Signs: Vital Signs - 24 hr 01/01/25 19:27 01/01/25 19:44 01/01/25 22:28 Temperature 98.2 F 98.4 F Pulse Rate 108 H 104 H 100 Respiratory Rate 25 H 20 18 Blood Pressure 143/81 H 118/66 Pulse Oximetry 97 98 Oxygen Delivery Method Room Air Room Air BMI result Body Mass Index 37.7 Const Other: Alert well-appearing Orientation/consciousness: patient oriented x3 Resp Other: At rest nonlabored respirations, with ambulation and becomes tachypneic, faint basilar crackles noted posterior ren right greater than left Cardio Other: Pitting edema noted bilaterally is at patient's baseline, warm and perfusing Skin Other: Warm dry no rash Neuro General: patient oriented x3, gait normal, no focal motor deficits and CN's II- XI intact bilaterally Psych Other: Cooperative Course Course Course Narrative: RME performed by Sindhu Simms PA-C. Patient is a 79 year old assigned male at presenting to the emergency department with SOB. Detailed physical exam and review of systems are deferred to the commissioner of internal revenue. EKG, labs, imaging, and swabs ordered. weed cutter aware. Consultations Consultation #1: Dr. Julio, he recommends if large effusion found on CTA, the patient should go to [facility], if not the patient can stay for admission Time: 21:47 Consultation #2: The hospitalist wanted me to reach back out to Dr. Julio about giving lasix, he sts...That?s a clinical decision...Dr. Thorne wants 40 IV lasix once Time: 12:25 Medications Administered Discontinued Medications Generic Name Dose Route Start Last Admin Trade Name Freq PRN Reason Stop Dose Admin Albuterol/Ipratropium 3 ml 01/01/25 19:43 01/01/25 19:47 Albuterol/Iprat 2.5/0.5mg 3 Ml Ampul.Neb INHALE 01/01/25 19:44 3 ml ONCE ONE Administration Ceftriaxone Sodium 2 gm 01/01/25 23:10 01/01/25 23:31 Ceftriaxone Sodium 2 Gm Vial IVPUSH 01/01/25 23:11 2 gm ONCE ONE Administration Azithromycin 500 mg/ Sodium 250 mls @ 125 mls/hr 01/01/25 23:10 01/01/25 23:31 Chloride IV 01/02/25 01:09 125 mls/hr ONCE ONE Administration Iohexol 75 ml 01/01/25 22:15 01/01/25 22:16 Iohexol 350 Mg/Ml 75 Ml Infus..Btl IV 01/01/25 22:16 75 ml ONCE ONE Administration Procedures Procedure Narrative Procedure Narrative: Bedside echo Unable to obtain all cardiac windows secondary to habitus, on subxiphoid view I am seeing a pericardial effusion, I was able to visualize the IVC which is dilated without respiratory variation Medical Decision Making Medical Decision Making MDM Narrative: 79-year-old male with a history of hypertension, hyperlipidemia, diabetes AFib on Xarelto, chronic kidney disease, peripheral arterial disease, morbid obesity presents with progressive, worsening shortness of breath x 3-4 days. Patient states he has become dyspneic with a simple activities of daily living. Denies unintentional weight gain, new pedal edema , he has chronic orthopnea. Denies chest pain, recent cough or cold symptoms no fever. Problem: Age, hypertension, AFib, chronic kidney disease, obesity History: Per patient I have considered the following differential diagnoses: ACS, new heart failure, viral syndrome, pneumonia, PE Plan: The patient has no infectious signs symptoms to suggest pneumonia or viral syndrome, however he was tachycardic in triage, in addition to screening labs, blood cultures, lactic acid and a viral panel were ordered. Considering new heart failure given dyspnea on exertion, screening labs including troponin BNP EKG and chest x-ray were ordered from triage, however he had a recent echo May of 2024, that revealed normal LV function with the ejection fraction is 60-65%. I in turn performed bedside echo, I am visualizing a pericardial effusion, I will be obtaining a CT scan of the chest for better differentiation. The patient is somewhat immobile secondary to his obesity and bilateral dependent edema, he does have risk factors for PE, he is currently tachycardic, we will add on a dimer. The patient is not having concurrent chest discomfort to suggest ACS. I have independently reviewed the following tests: Labs: Leukocytosis with left shift, not anemic, no electrolyte abnormality, creatinine subtly bumped from his baseline at 1.45, troponin 4.6, bnp 327, dimer 1675, lactic 1.6 EKG: AFib RVR, rate of 108, T-wave abnormalities noted inferior and anterolateral leads QTC 455 Chest x-ray:Findings: There are minimal left basilar opacities with minimal blunting of the bilateral costophrenic angles. No pneumothorax. Heart size is mildly enlarged. Impression: 1. Mild cardiomegaly with minimal left basilar atelectasis versus infiltrates and minimal bilateral pleural effusions. CTA chest:mpression: 1. Motion limited examination. No pulmonary embolism identified to the level of the lobar arteries. The segmental and subsegmental pulmonary arterial branches are not well evaluated on this examination. 2. Small to moderate pericardial effusion. 3. Small bilateral pleural effusions with possible vague ground-glass opacities/interstitial prominence within the lungs. Evaluation is limited by motion artifact. Pulmonary edema is not excluded. Clinical correlation is advised. 4. Mild mediastinal lymphadenopathy. There was question of infectious findings on both the chest x-ray and CT of the chest, we will cover with ceftriaxone and azithromycin Lab Data 01/01/25 19:48 01/01/25 19:48 Labs: Lab Results 01/01/25 01/01/25 01/01/25 Range/Units 19:48 19:57 21:17 WBC 14.4 H (4.8-10.8) X10*3/uL RBC 4.19 L (4.60-5.80) X10*6/uL Hgb 12.9 L (14.0-18.0) g/dl Hct 38.4 L (42.0-52.0) % MCV 91.6 (80.0-98.0) fL MCH 30.8 (27.0-33.0) pg MCHC 33.6 (31.0-36.0) g/dl RDW 14.2 (11.0-16.0) % Plt Count 406 H (160-400) X10*3/uL MPV 9.4 (9.4-12.4) fL Immature Gran % (Auto) 0.4 (0.0-0.4) % Neut % (Auto) 80.7 H (45-73) % Lymph % (Auto) 6.6 L (20-40) % [place] % (Auto) 11.8 H (2-11) % Eos % (Auto) 0.2 (0-4) % Baso % (Auto) 0.3 (0-2) % Lymph # (Auto) 1.0 L (1.2-4.9) X10*3/uL [place] # (Auto) 1.7 H (0.1-1.2) X10*3/uL Eos # (Auto) 0.0 (0.0-0.4) X10*3/uL Baso # (Auto) 0.0 (0.0-0.2) X10*3/uL Abs Immat Gran (auto) 0.06 H (0.00-0.03) X10*3/uL Absolute Neuts (auto) 11.7 H (2.0-8.3) x10*3/uL Absolute Nucleated RBC 0.000 (0.0-0.012) X10*3/uL Nucleated RBC % (auto) 0.0 (0.0-0.2) /100WBC Smear Tech's Comments VERIFIED D-Dimer High Sensitivty 1675 NG/ML VBG pH 7.40 (7.32-7.43) VBG pCO2 42 mmHg VBG pO2 34 mmHg VBG HCO3 26 (22-26) mmol/L VBG O2 Saturation 48.0 % VBG Base Excess 1.9 mmol/L Sodium 133 L (135-145) mmol/L Potassium 3.9 (3.3-5.1) mmol/L Chloride 95 L (96-108) mmol/L Carbon Dioxide 22 (22-29) mmol/L Anion Gap 20 (12-20) BUN 32 H (9-16) mg/dL Creatinine 1.45 H (0.5-1.4) mg/dL Estim Creat Clear Calc 60.2 Estimated GFR 47 Random Glucose 221 H (60-115) mg/dL Lactic Acid 1.6 (0.5-2.0) mmol/L Calcium 9.9 (8.4-10.2) mg/dL Magnesium 1.6 (1.6-2.6) mg/dL Total Bilirubin 0.8 (0.0-1.0) mg/dL AST 39 H (5-37) U/L ALT 17 (0-40) U/L Alkaline Phosphatase 97 (39-117) U/L Troponin I High Sens 4.6 (<3.5-35.0) ng/L B-Natriuretic Peptide 327 H (<100) pg/mL Total Protein 8.0 (6.5-8.0) g/dL Albumin 3.9 (3.5-5.0) g/dL Influenza Type A (PCR) NEGATIVE (Negative) Influenza Type B (PCR) NEGATIVE (Negative) RSV RNA Qual (PCR) NEGATIVE (Negative) SARS-CoV-2 RNA (RT-PCR) NEGATIVE (Negative) Critical Care Time Critical Care Time Critical Care Time: Yes Total Critical Care Time: 30 Attestation: Jennifer Kaur PA-C have personally performed 30 minutes of critical care time not including lines and procedures. Discharge Plan Discharge Clinical Impression: Pleural effusion, Acute pericardial effusion, Dyspnea on exertion Patient Disposition: Admitted As Inpatient
[2025-01-01 19:27] VITALS: BP 143/81; PULSE 108; RESP 25; TEMP 36.8; O2SAT 97; BMI 37.7
--- NOTE | 2025-01-01 19:27 | ECG_ITS ---
Test Reason : SOB Blood Pressure : */* mmHG Vent. Rate : 108 BPM Atrial Rate : * BPM P-R Int : * ms QRS Dur : 84 ms QT Int : 340 ms P-R-T Axes : * 22 181 degrees QTcB Int : 455 ms Atrial fibrillation with rapid ventricular response Nonspecific ST and T wave abnormality Abnormal ECG When compared with ECG of 14-Jun-2024 12:44, Vent. rate has increased by 37 bpm T wave inversion now evident in Anterolateral leads Referred By: Sindhu Simms Electronically Signed By: NO WOO
[2025-01-01 19:44] VITALS: PULSE 104; RESP 20; O2SAT 95
[2025-01-01] MEDS: Albuterol/Iprat 2.5/0.5MG 3 ML AMPUL.NEB INHALE (19:47)
[2025-01-01 19:59] LABS: Basophils Percent Auto 0.3 % (0-2); Eosinophils Percent Auto 0.2 % (0-4); Hematocrit 38.4 % (42.0-52.0); Hemoglobin 12.9 g/dl (14.0-18.0); Imm Gran Abs Auto 0.06 X10*3/uL (0.00-0.03); Imm Gran Pct Auto 0.4 % (0.0-0.4); Lymphocytes Percent Auto 6.6 % (20-40); MANUAL DIFF FLAG SCAN; Mean Corpuscular HGB Conc 33.6 g/dl (31.0-36.0); Mean Corpuscular Hemoglobin 30.8 pg (27.0-33.0); Mean Corpuscular Volume 91.6 fL (80.0-98.0); Mean Platelet Volume 9.4 fL (9.4-12.4); Monocytes Absolute Auto 1.7 X10*3/uL (0.1-1.2); Monocytes Percent Auto 11.8 % (2-11); Neutrophils Absolute Auto 11.7 x10*3/uL (2.0-8.3); Neutrophils Percent Auto 80.7 % (45-73); Platelet Count 406 X10*3/uL (160-400); Red Blood Count 4.19 X10*6/uL (4.60-5.80); Red Cell Distribution Width 14.2 % (11.0-16.0); SCAN SMEAR FLAG 1; White Blood Count 14.4 X10*3/uL (4.8-10.8)
[2025-01-01 20:03] LABS: Venous Blood Gas Refer to POC result
[2025-01-01 20:03] LABS: VBG Base Excess 1.9 mmol/L; VBG HCO3 26 mmol/L (22-26); VBG pCO2 42 mmHg; VBG pO2 34 mmHg
--- NOTE | 2025-01-01 20:04 | PC.NURSE ---
pt a&ox4, respirations even and unlabored with expiratory wheezing noted. pt reports sudden onset of shortness of breath, pt only able to speak few works in between taking a breath. pt denies any hx of asthma. bilateral 20g iv placed in acs, labs obtained, ekg obtained, rt at bedside. pt sating 98% on room air, afib on tele. pt noted to have 2+ pitting edema in the bilateral lower extremities.
[2025-01-01 20:12] LABS: Lactic Acid 1.6 mmol/L (0.5-2.0)
[2025-01-01 20:15] LABS: Alanine Aminotransferase 17 U/L (0-40); Albumin Level 3.9 g/dL (3.5-5.0); Alkaline Phosphatase 97 U/L (39-117); Anion Gap 20 (12-20); Aspartate Amino Transferase 39 U/L (5-37); Bilirubin Total 0.8 mg/dL (0.0-1.0); Blood Urea Nitrogen 32 mg/dL (9-16); Calcium 9.9 mg/dL (8.4-10.2); Carbon Dioxide 22 mmol/L (22-29); Chloride 95 mmol/L (96-108); Creatinine Clr Calc Pharmacy 60.2; Estimated Glomerular Filt Rate 47; Glucose Random 221 mg/dL (60-115); Magnesium 1.6 mg/dL (1.6-2.6); Potassium 3.9 mmol/L (3.3-5.1); Sodium 133 mmol/L (135-145)
[2025-01-01 20:16] LABS: SLIDE REVIEW VERIFIED
[2025-01-01 20:17] LABS: B Type Natriuretic Peptide 327 pg/mL (<100)
[2025-01-01 20:18] LABS: Troponin-I High Sensitivity 4.6 ng/L (<3.5-35.0)
[2025-01-01 20:34] LABS: Influenza A PCR NEGATIVE (Negative); Influenza B PCR NEGATIVE (Negative); Resp Syncy Virus RNA Qual PCR NEGATIVE (Negative); SARS COV2 PCR INHOUSE NEGATIVE (Negative)
[2025-01-01 21:30] LABS: D Dimer High Sensitivity 1675 NG/ML
--- NOTE | 2025-01-01 21:48 | PC.NURSE ---
pt noted to be intermittent in rapid afib 140s, gianni meza aware and at bedside.
[2025-01-01] MEDS: iohexoL 350 MG/ML 75 ML INFUS..BTL IV (22:16)
[2025-01-01 22:28] VITALS: BP 118/66; PULSE 100; RESP 18; TEMP 36.9; O2SAT 98
[2025-01-01] MEDS: cefTRIAXone sodium 2 GM VIAL IVPUSH (23:31)
[2025-01-01] MEDS: Azithromycin 500 MG in 0.9 % Sodium Chloride 250 ML 125 MG IV (23:31)
--- NOTE | 2025-01-02 00:25 | P.HPHOSP_ITS ---
History of Present Illness Date of Service: 01/02/25 Chief Complaint: sob 79-year-old male with a past medical history of HTN, HLD, dm,? HFpEF, PID, CKD, neuropathy, AFib on Xarelto presented to the hospital today with a chief complaint of shortness of breath. Patient reported for the past 2 days he has been having shortness of breath it has been worsening. Especially on exertion. Reports orthopnea. Denies any cough or sputum production. Denies any sick contacts. Denies any GI symptoms. Review of all other systems is negative except mentioned above ER course: Per ER team, patient on presentation noted to be short of breath, has crackles on examination, CT chest showed [id number] pericardial effusion, small pleural effusions, mild mediastinal lymphadenopathy, ground-glass opacities. Given empiric antibiotics. Discussed with Cardiology who mentioned patient can be admitted to the [facility]. Patient was also on mild AFib with RVR usually but heart rate improving. 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 Surgical History Hx of appendectomy Hx of tonsillectomy Social History Household Members: Spouse Alcohol intake: current Alcohol intake frequency: holidays/special occasions only Patient Tobacco Use Status: Never used Tobacco Smoked in Last 30 Days: No Use of substances other than those prescribed or required for medical reasons: No Advance Directives: Yes Advance Directives Information Provided: No Advance Directives on File: No Do you have a plan to hurt others: No Plan Meds Allergies Allergy/AdvReac Type Severity Reaction Status Date / Time enviromental Allergy Unknown Sneezing Verified 01/01/25 19:28 pets Allergy Unknown Itching Verified 01/01/25 19:28 Active Medications: Current Medications Acetaminophen (Acetaminophen 325 Mg Tablet) 650 mg PO Q6H PRN PRN Reason: Pain, Mild 1-3,fever,headache Calcium Carbonate (Calcium Carbonate 750 Mg Tab.Chew) 750 mg PO Q4H PRN PRN Reason: Heartburn Dextrose (Dextrose 50 % 25 Gm/50 Ml Syringe) 25 gm IVPUSH Q15M PRN; Protocol PRN Reason: per Hypoglycemia Standing Ord. Glucose (Glucose Gel 15 Gm Gel..Gram.) 15 gm PO Q15M PRN; Protocol PRN Reason: per Hypoglycemia Standing Ord. Azithromycin 500 mg/ Sodium (Chloride) 250 mls @ 125 mls/hr IV ONCE ONE Stop: 01/02/25 01:09 Last Admin: 01/01/25 23:31 Dose: 125 mls/hr Insulin Human Lispro (Insulin Lispro 100 Unit/Ml 3 Ml Vial) 0 unit SUBCUT [facility]; Protocol Magnesium Hydroxide (Milk Of Magnesia 30 Ml Oral.Susp) 30 ml PO DAILY PRN PRN Reason: Constipation Melatonin (Melatonin 3 Mg Tablet) 6 mg PO BEDTIME PRN PRN Reason: Insomnia Sodium Chloride (0.9 % Sodium Chloride Flush 3 Ml Syringe) 3 ml IVFLUSH [facility] Home Medications ?Medication ?Instructions ?Recorded ?Confirmed ?Last Taken ?Type bisoprolol 5 1 tab PO DAILY 07/06/20 06/24/24 Unknown History mg-hydrochlorothiazide 6.25 mg tablet irbesartan 300 mg tablet 300 mg PO DAILY 07/06/20 06/24/24 Unknown History rivaroxaban 20 mg tablet (Xarelto) 20 mg PO DAILY 06/24/24 06/24/24 Unknown History Physical Exam 2 Vital Signs and Narrative: Vital Signs: Last Vital Signs Temp 98.4 F 01/01/25 22:28 Pulse 100 01/01/25 22:28 Resp 18 01/01/25 22:28 BP 118/66 01/01/25 22:28 Pulse Ox 98 01/01/25 22:28 O2 Del Method Room Air 01/01/25 22:28 BMI result Body Mass Index 37.7 Gen: Appears be in no acute distress HEENT: NCAT, Moist mucosa. Pulmonary: Coarse breath sounds CVS: Normal S1-S2 Abdomen: BS+, Soft, Nontender Extremities: Warm well perfused; mild peripheral edema present Neuro: Alert and awake. Results Labs 01/01/25 19:48 01/01/25 19:48 Labs: Laboratory Results - last 24 hr 01/01/25 01/01/25 01/01/25 19:48 19:57 21:17 MCV 91.6 MCH 30.8 MCHC 33.6 RDW 14.2 Plt Count 406 H MPV 9.4 Immature Gran % (Auto) 0.4 Neut % (Auto) 80.7 H Lymph % (Auto) 6.6 L [place] % (Auto) 11.8 H Eos % (Auto) 0.2 Baso % (Auto) 0.3 Lymph # (Auto) 1.0 L [place] # (Auto) 1.7 H Eos # (Auto) 0.0 Baso # (Auto) 0.0 Abs Immat Gran (auto) 0.06 H Absolute Neuts (auto) 11.7 H Absolute Nucleated RBC 0.000 Nucleated RBC % (auto) 0.0 Smear Tech's Comments VERIFIED D-Dimer High Sensitivty 1675 VBG pH 7.40 VBG pCO2 42 VBG pO2 34 VBG HCO3 26 VBG O2 Saturation 48.0 VBG Base Excess 1.9 Anion Gap 20 Estim Creat Clear Calc 60.2 Estimated GFR 47 Random Glucose 221 H Lactic Acid 1.6 Calcium 9.9 Magnesium 1.6 Total Bilirubin 0.8 AST 39 H ALT 17 Alkaline Phosphatase 97 B-Natriuretic Peptide 327 H Total Protein 8.0 Albumin 3.9 Influenza Type A (PCR) NEGATIVE Influenza Type B (PCR) NEGATIVE RSV RNA Qual (PCR) NEGATIVE SARS-CoV-2 RNA (RT-PCR) NEGATIVE Assessment and Plan (1) Acute pericardial effusion: Status: Acute Plan 79-year-old male with a past medical history of HTN, HLD, dm,? HFpEF, PID, CKD, neuropathy, AFib on Xarelto presented to the hospital today with a chief complaint of shortness of breath. Admitted for following SOB/HOOKS: Acute on chronic HFpEF: Bilateral pleural effusions: Patient prior echocardiogram in May 2024 showed EF of 60%, intermediate diastolic function. Patient has not been on diuretics at home. Currently concern for newly decompensated CHF. CT chest showed small to moderate pericardial effusion and small pleural effusions. Lasix IV x1 Cardiology consult Repeat echocardiogram Will obtain ESR CRP and Lyme titers, TSH Abnormal CT chest: Noted to have ground-glass opacities. Patient denies any pulmonary symptoms. Received empiric antibiotics in the ER. Will obtain procalcitonin and if possible continue antibiotics. Recommended follow-up CT chest in 6-8 weeks to ensure improvement. Diabetes: Insulin sliding scale. AFib with RVR: Patient was in mild RVR on presentation. Currently heart rate improving. Continue home bisoprolol, Xarelto. CKD: Baseline creatinine around 1.2. Creatinine on presentation is 1.4. Will monitor. DVT prophylaxis: Patient on Xarelto Code status: Full code Quality Stroke Does the patient have a stroke diagnosis?: No VTE Prior VTE?: No VTE Risk Level:: Medical - moderate - high VTE Device Contraindication: Treatment Not Indicated VTE Drug Contraindication: N/A - Med Ordered
[2025-01-02 01:29] VITALS: BP 120/61
[2025-01-02] MEDS: Furosemide 40 MG/4 ML VIAL IVPUSH ×3 (01:29→17:06)
[2025-01-02 02:26] LABS: C Reactive Protein 19.79 mg/dL (< or = 0.50)
[2025-01-02 02:30] VITALS: BP 128/69; PULSE 107; RESP 20; O2SAT 99
[2025-01-02 02:42] LABS: Procalcitonin 0.19 ng/mL; Thyroid Stimulating Hormone 2.18 uIU/mL (0.32-4.0)
[2025-01-02 02:49] VITALS: BMI 38.1
[2025-01-02 03:06] LABS: Erythrocyte Sedimentation Rate 79 MM/HR (0-15)
[2025-01-02 07:32] LABS: MANUAL DIFF FLAG NO
[2025-01-02 07:33] LABS: Basophils Percent Auto 0.4 % (0-2); Eosinophils Percent Auto 0.4 % (0-4); Hematocrit 36.8 % (42.0-52.0); Hemoglobin 12.1 g/dl (14.0-18.0); Imm Gran Abs Auto 0.06 X10*3/uL (0.00-0.03); Imm Gran Pct Auto 0.6 % (0.0-0.4); Lymphocytes Absolute Auto 0.8 X10*3/uL (1.2-4.9); Lymphocytes Percent Auto 7.4 % (20-40); Mean Corpuscular HGB Conc 32.9 g/dl (31.0-36.0); Mean Corpuscular Hemoglobin 30.3 pg (27.0-33.0); Mean Platelet Volume 9.6 fL (9.4-12.4); Monocytes Absolute Auto 1.5 X10*3/uL (0.1-1.2); Monocytes Percent Auto 13.6 % (2-11); Neutrophils Absolute Auto 8.4 x10*3/uL (2.0-8.3); Neutrophils Percent Auto 77.6 % (45-73); Platelet Count 415 X10*3/uL (160-400); Red Cell Distribution Width 14.4 % (11.0-16.0); White Blood Count 10.8 X10*3/uL (4.8-10.8)
[2025-01-02] MEDS: Insulin Lispro 100 UNIT/ML 3 ML VIAL SUBCUT ×4 (07:46→21:00)
[2025-01-02] MEDS: Bisoprolol Fumarate 5 MG TABLET PO (07:46)
[2025-01-02] MEDS: Acetaminophen 325 MG TABLET 650 MG PO ×2 (07:47→21:04)
[2025-01-02] MEDS: 0.9 % Sodium Chloride Flush 3 ML SYRINGE IVFLUSH ×3 (07:48→21:07)
[2025-01-02 07:54] LABS: Alanine Aminotransferase 16 U/L (0-40); Albumin Level 3.6 g/dL (3.5-5.0); Alkaline Phosphatase 88 U/L (39-117); Anion Gap 16 (12-20); Aspartate Amino Transferase 39 U/L (5-37); Bilirubin Total 0.5 mg/dL (0.0-1.0); Blood Urea Nitrogen 29 mg/dL (9-16); Calcium 9.8 mg/dL (8.4-10.2); Carbon Dioxide 23 mmol/L (22-29); Chloride 97 mmol/L (96-108); Creatinine Clr Calc Pharmacy 71.3; Estimated Glomerular Filt Rate 57; Glucose Random 169 mg/dL (60-115); Potassium 3.5 mmol/L (3.3-5.1); Sodium 132 mmol/L (135-145); Total Protein 7.3 g/dL (6.5-8.0)
[2025-01-02 08:00] VITALS: BP 124/62; PULSE 97; RESP 20; TEMP 36.6; O2SAT 97
[2025-01-02 08:06] LABS: Glucose, Whole Blood 170 mg/dL (60-115)
--- NOTE | 2025-01-02 10:26 | MHC.CM.PN ---
IMM 01/02. Pt self-care, lives at home with his , she will transport him home at discharge. Pts is his HCP, copy requested. PCP: Dr. Artem Dahl
--- NOTE | 2025-01-02 10:53 | P.CONCA_ITS ---
History of Present Illness History of Present Illness Date of Service: 01/02/25 Chief complaint: sob Narrative: This is a cardiology consultation regarding shortness of breath/congestive heart failure. It seems that he mainly presented to the hospital with complaints of shortness of breath. For the last few days, he has been having worsening shortness of breath. Even with small amount of exertion, he can feel short of breath. No clear-cut angina. He does have leg swelling but he states he has always been that way. He has gained some weight however. Imaging was profound in the emergency room and that showed [id number] pericardial effusion, small bilateral pleural effusions and some ground-glass opacity/interstitial prominence in the lungs. Subsequently, admitted for further care. He has gotten some diuretics in the emergency room. We are asked to evaluate him for further care. I had seen him in the clinic last year once. At that time, he had asymptomatic atrial fibrillation and preserved LVEF on the echocardiogram with many comorbidities. He has been on rate control with beta-blockers. He is also on anticoagulation with Xarelto. Review of Systems 2 Review of Systems: Yes all other systems are reviewed and are negative Constitutional: Constitutional: Reports as per HPI and Reports no additional constitutional complaints Eyes: Eyes: Reports as per HPI and Denies no additional eye complaints ENT: Denies system reviewed and no additional complaints, except as documented and Reports as per HPI Cardiovascular: Cardiovascular: Reports as per HPI, Reports no additional cardiovascular complaints, Denies acrocyanosis, Denies cool extremities, Denies chest pain, Reports leg edema, Denies lightheadedness, Denies palpitations and Reports dyspnea Respiratory: Respiratory: Reports as per HPI, Denies no additional respiratory complaints and Reports dyspnea Gastrointestinal: Gastrointestinal: Reports as per HPI and Denies no additional gastrointestinal complaints Genitourinary: Genitourinary: Reports no additional male genitourinary complaints and Reports as per HPI Musculoskeletal: Musculoskeletal: Reports no additional musculoskeletal complaints and Reports as per HPI Integumentary/Breasts: Skin/Breast: Reports system reviewed and no additional complaints, except as docu Neurologic: Reports system reviewed and no additional complaints, except as documented and Reports as per HPI Psychiatric: Psychiatric: Reports no additional psychiatric complaints and Reports as per HPI Endocrine: Endocrine: Reports no additional endocrine complaints, Reports as per HPI and Denies palpitations Hematologic/Lymphatic: Hematologic/Lymphatic: Reports no additional hematologic/lymphatic complaints and Reports as per HPI Allergic/Immunologic: Allergic/Immunologic: Reports no additional allergic/immunologic complaints and Reports as per HPI ON LICENSE OF [facility] Past Medical History Medical History Atrial fibrillation by electrocardiogram Stroke (~2018) CKD (chronic kidney disease) stage 3, GFR 30-59 ml/min Obesity (BMI 30-39.9) Diabetic polyneuropathy associated with type 2 diabetes mellitus Dyslipidemia Hypertension Diabetic nephropathy associated with type 2 diabetes mellitus 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 Surgical History Surgical History Hx of appendectomy Hx of tonsillectomy Social History Social History Household Members: Spouse Alcohol intake: current Alcohol intake frequency: holidays/special occasions only Patient Tobacco Use Status: Never used Tobacco Smoked in Last 30 Days: No Use of substances other than those prescribed or required for medical reasons: No Advance Directives: Yes Advance Directives Information Provided: No Advance Directives on File: No Advance Directives Date on File: 01/01/25 Do you have a plan to hurt others: No Plan service: No Meds Allergies Allergy/AdvReac Type Severity Reaction Status Date / Time enviromental Allergy Unknown Sneezing Verified 01/01/25 19:28 pets Allergy Unknown Itching Verified 01/01/25 19:28 Active Medications: Current Medications Acetaminophen (Acetaminophen 325 Mg Tablet) 650 mg PO Q6H PRN PRN Reason: Pain, Mild 1-3,fever,headache Last Admin: 01/02/25 07:47 Dose: 650 mg Bisoprolol Fumarate (Bisoprolol Fumarate 5 Mg Tablet) 5 mg PO DAILY ANDRAE Last Admin: 01/02/25 07:46 Dose: 5 mg Calcium Carbonate (Calcium Carbonate 750 Mg Tab.Chew) 750 mg PO Q4H PRN PRN Reason: Heartburn Dextrose (Dextrose 50 % 25 Gm/50 Ml Syringe) 25 gm IVPUSH Q15M PRN; Protocol PRN Reason: per Hypoglycemia Standing Ord. Furosemide (Furosemide 40 Mg/4 Ml Vial) 40 mg IVPUSH BID@0900,1800 [facility]; Protocol Glucose (Glucose Gel 15 Gm Gel..Gram.) 15 gm PO Q15M PRN; Protocol PRN Reason: per Hypoglycemia Standing Ord. Insulin Human Lispro (Insulin Lispro 100 Unit/Ml 3 Ml Vial) 0 unit SUBCUT QIDACHS [facility]; Protocol Last Admin: 01/02/25 07:46 Dose: 2 unit Magnesium Hydroxide (Milk Of Magnesia 30 Ml Oral.Susp) 30 ml PO DAILY PRN PRN Reason: Constipation Melatonin (Melatonin 3 Mg Tablet) 6 mg PO BEDTIME PRN PRN Reason: Insomnia Rivaroxaban (Rivaroxaban 20 Mg Tablet) 20 mg PO DAILY@1700 [facility] Sodium Chloride (0.9 % Sodium Chloride Flush 3 Ml Syringe) 3 ml IVFLUSH QSHIFT [facility] Last Admin: 01/02/25 07:48 Dose: 3 ml Home Medications ?Medication ?Instructions ?Recorded ?Confirmed ?Last Taken ?Type bisoprolol 5 1 tab PO DAILY 07/06/20 06/24/24 Unknown History mg-hydrochlorothiazide 6.25 mg tablet irbesartan 300 mg tablet 300 mg PO DAILY 07/06/20 06/24/24 Unknown History rivaroxaban 20 mg tablet (Xarelto) 20 mg PO DAILY 06/24/24 06/24/24 Unknown History amlodipine 5 mg tablet 5 mg PO DAILY 01/02/25 Unknown History atorvastatin 80 mg tablet 80 mg PO BEDTIME 01/02/25 Unknown History insulin degludec 100 unit/mL (3 30 unit subcut DAILY 01/02/25 Unknown History mL) subcutaneous pen (Tresiba FlexTouch U-100 insulin) insulin glargine 100 unit/mL (3 30 unit subcut BEDTIME 01/02/25 Unknown History mL) subcutaneous pen (Basaglar KwikPen U-100 Insulin) primidone 50 mg tablet 50 mg PO BID 01/02/25 Unknown History Physical Exam 2 Vital Signs: Vital Signs: Last Vital Signs Temp 97.8 F 01/02/25 08:00 Pulse 97 01/02/25 08:00 Resp 20 01/02/25 08:00 BP 124/62 01/02/25 08:00 Pulse Ox 97 01/02/25 08:00 O2 Del Method Room Air 01/02/25 08:00 BMI result Body Mass Index 38.1 Const: General: comfortable and no acute distress O rientation/consciousness: patient oriented x3 HEENT: Other: Unremarkable Head: Yes normal to inspection Neck: Neck: Yes normal visual inspection Chest: Chest palpation & inspection: normal inspection of the chest Resp: Auscultation: clear to auscultation bilaterally Cardio: Palpation: normal PMI Heart sounds: S1 normal heart sound present, S2 normal heart sound present, no gallops, no murmurs and no rubs GI: Palpation (GI): Soft to palpation Back/Spine/Pelvis: Other: unremarkable Skin: General skin exam: no rashes or lesions noted Neuro: General: patient oriented x3 Extrem: Other: 2+ leg swelling General: Yes normal to inspection Psych: Mental Status: mental status grossly normal Objective Labs and Meds 01/02/25 06:25 01/02/25 06:25 Lab results: Laboratory Results - last 24 hr 01/01/25 01/01/25 01/01/25 19:48 19:57 21:17 WBC 14.4 H RBC 4.19 L Hgb 12.9 L Hct 38.4 L MCV 91.6 MCH 30.8 MCHC 33.6 RDW 14.2 Plt Count 406 H MPV 9.4 Immature Gran % (Auto) 0.4 Neut % (Auto) 80.7 H Lymph % (Auto) 6.6 L Steele % (Auto) 11.8 H Eos % (Auto) 0.2 Baso % (Auto) 0.3 Lymph # (Auto) 1.0 L Steele # (Auto) 1.7 H Eos # (Auto) 0.0 Baso # (Auto) 0.0 Abs Immat Gran (auto) 0.06 H Absolute Neuts (auto) 11.7 H Absolute Nucleated RBC 0.000 Nucleated RBC % (auto) 0.0 Smear Tech's Comments VERIFIED ESR D-Dimer High Sensitivty 1675 VBG pH 7.40 VBG pCO2 42 VBG pO2 34 VBG HCO3 26 VBG O2 Saturation 48.0 VBG Base Excess 1.9 Sodium 133 L Potassium 3.9 Chloride 95 L Carbon Dioxide 22 Anion Gap 20 BUN 32 H Creatinine 1.45 H Estim Creat Clear Calc 60.2 Estimated GFR 47 POC Glucose Random Glucose 221 H Lactic Acid 1.6 Calcium 9.9 Magnesium 1.6 Total Bilirubin 0.8 AST 39 H ALT 17 Alkaline Phosphatase 97 Troponin I High Sens 4.6 C-Reactive Protein B-Natriuretic Peptide 327 H Total Protein 8.0 Albumin 3.9 Procalcitonin TSH Influenza Type A (PCR) NEGATIVE Influenza Type B (PCR) NEGATIVE RSV RNA Qual (PCR) NEGATIVE SARS-CoV-2 RNA (RT-PCR) NEGATIVE 01/02/25 01/02/25 01/02/25 02:00 06:25 07:43 WBC 10.8 RBC 4.00 L Hgb 12.1 L Hct 36.8 L MCV 92.0 MCH 30.3 MCHC 32.9 RDW 14.4 Plt Count 415 H MPV 9.6 Immature Gran % (Auto) 0.6 H Neut % (Auto) 77.6 H Lymph % (Auto) 7.4 L Steele % (Auto) 13.6 H Eos % (Auto) 0.4 Baso % (Auto) 0.4 Lymph # (Auto) 0.8 L Steele # (Auto) 1.5 H Eos # (Auto) 0.0 Baso # (Auto) 0.0 Abs Immat Gran (auto) 0.06 H Absolute Neuts (auto) 8.4 H Absolute Nucleated RBC 0.000 Nucleated RBC % (auto) 0.0 Smear Tech's Comments ESR 79 H D-Dimer High Sensitivty VBG pH VBG pCO2 VBG pO2 VBG HCO3 VBG O2 Saturation VBG Base Excess Sodium 132 L Potassium 3.5 Chloride 97 Carbon Dioxide 23 Anion Gap 16 BUN 29 H Creatinine 1.23 Estim Creat Clear Calc 71.3 Estimated GFR 57 POC Glucose 170 H Random Glucose 169 H Lactic Acid Calcium 9.8 Magnesium Total Bilirubin 0.5 AST 39 H ALT 16 Alkaline Phosphatase 88 Troponin I High Sens C-Reactive Protein 19.79 H B-Natriuretic Peptide Total Protein 7.3 Albumin 3.6 Procalcitonin 0.19 TSH 2.18 Influenza Type A (PCR) Influenza Type B (PCR) RSV RNA Qual (PCR) SARS-CoV-2 RNA (RT-PCR) ECG Interpretation: EKG with atrial fibrillation at a rate of 108/Min; nonspecific ST-T changes. In the previous EKG from May 2024, he was not controlled atrial fibrillation at 71/Min. In 2019, in sinus rhythm. Assessment and Plan (1) Acute congestive heart failure: Status: Acute (2) Persistent atrial fibrillation: Status: Acute (3) Acute pericardial effusion: Status: Acute Plan Clinically, he seems volume overloaded. His BNP is only slightly elevated at 327. His CRP/ESR quite high. Imaging studies reviewed. Overall, I am not entirely clear how much of it is all just congestive heart failure only as the inflammatory markers are indeed quite high. We can try empiric diuretics for now. Lasix intravenously. With regard to the pericardial effusion, does not appear to be hemodynamically significant on the CAT scan. We will need to get an echocardiogram for both cardiac function as well as the pericardial effusion. With regard to atrial fibrillation itself, rate control on telemetry. In the 90s. He may need rhythm control but reduced likelihood of staying in sinus based on his weight and comorbidities in possible DUGLAS. We will follow up with you. Procedures Date of Service Date of Service: 01/02/25
--- NOTE | 2025-01-02 11:20 | PHA.MEDREC ---
Addendum entered by Felicity Biswas RPh 01/02/25 11:25: reviewed by [facility]. Original Note: Pharmacy Consult ? Medication Reconciliation Pharmacy has completed the medication reconciliation. Spoke with patient to confirm medications. He takes amlodipine and atorvastatin at night, he takes basaglar and xarelto in the morning. He confirmed 30 units of his insulin, Devon confirmed that it was Basaglar. He also takes Co-Q10 but he does not remember the dose. He took his morning medications yesterday.
[2025-01-02 11:47] LABS: Glucose, Whole Blood 202 mg/dL (60-115)
[2025-01-02 11:52] VITALS: BP 102/61; PULSE 86; RESP 18; TEMP 36.5; O2SAT 96
--- NOTE | 2025-01-02 12:16 | PM.EVENT ---
Event Note Date of Service: 01/02/25 Event Note: Chart reviewed patient examined agree with H&P and plan as outlined. Discussed with Cardiology. We will add IV Lasix b.i.d. and order echo. Cardiology to follow Time Spent With Patient Time: Total time managing care of this patient today ____ minutes.
[2025-01-02 16:00] VITALS: BP 106/64; PULSE 84; RESP 20; TEMP 36.8; O2SAT 98
[2025-01-02 16:33] LABS: Glucose, Whole Blood 179 mg/dL (60-115)
[2025-01-02] MEDS: Rivaroxaban 20 MG TABLET PO (17:07)
[2025-01-02 19:08] VITALS: BP 127/68; PULSE 97; RESP 20; TEMP 36.9; O2SAT 97
[2025-01-02 19:21] LABS: Glucose, Whole Blood 218 mg/dL (60-115)
[2025-01-02] MEDS: Atorvastatin Calcium 80 MG TABLET PO (20:59)
[2025-01-02] MEDS: amLODIPine Besylate 5 MG TABLET PO (20:59)
[2025-01-02] MEDS: Primidone 50 MG TABLET PO (21:00)
[2025-01-03] VITALS (9 sets, daily range): BP systolic 101–136; BP diastolic 64–82; PULSE 76–96; RESP 15–20; TEMP 36.2–37.1; O2SAT 92–97
--- NOTE | 2025-01-03 07:00 | CA_ITS ---
Transthoracic Echocardiogram Patient (Last, First, Middle): Scar Bee C Gender: Male Date of : 1945 Age: 79 Procedure Date: 01/03/2025 Procedure Type: Transthoracic Echocardiogram Location: [facility] – [place] Height: 185.42 cm Weight: 130.64 kg BSA: 2.51 m2 Heart Rate: 104 bpm BP: 101 / 66 mmHg Coffee Shop Manager: Referring MD: Pedro Thorne MD Flying Squad Worker: Jasiel Duvall MD Symptoms: chf' effusion Study Quality: Technically Difficult ECG Rhythm: Atrial Fibrillation Conclusions: - 1. Technically limited study due to body habitus 2. Normal LV ejection fraction 55-60% with moderate left ventricular hypertrophy 3. Cardiac valvular Dopplers within normal limits but cardiac valves are poorly visualized 4. Significantly elevated right atrial pressures Findings Procedure Information Contrast agent, definity, is being given per protocol without apparent complications. Left Ventricle The left ventricle was not well visualized. Normal left ventricular cavity size. There is moderately increased left ventricular wall thickness. The left ventricular systolic function is normal. The visually estimated ejection fraction is between 55-60%. Regional wall motion abnormalities can not be excluded due to suboptimal endocardial definition. Diastolic function is indeterminate on the basis of available data. Right Ventricle The right ventricle was not well visualized. Atria The left atrium was not well visualized. Interatrial shunt cannot be excluded. The right atrium was not well visualized. Aortic Valve The aortic valve was not well visualized. There is no aortic valve stenosis. There is no aortic valve regurgitation. Mitral Valve The mitral valve was not well visualized. Pulmonic Valve The pulmonic valve was not well visualized. Tricuspid Valve The tricuspid valve was not well visualized. Tricuspid regurgitation envelope is inadequate for calculation of right ventricular systolic pressure. Significantly elevated right atrial pressure. Great Vessels The aorta was not well visualized. The pulmonary artery was not well visualized. Venous The inferior vena cava is moderately dilated and does not collapse with inspiration. Pericardium/Pleural The pericardium was not well visualized. Prior Study Comparison Changes noted compared to prior study dated: 06/18/2024. right atrial pressures significantly elevated Measurements 2D Linear Measurements RVIDd: 3.85 RVIDd Index: 1.53 IVSd: 1.56 0.6-0.9/0.6-1.0 cm LVIDd: 4.16 3.9-5.3/4.2-5.9 cm LVIDd Index: 1.66 2.4-3.2/2.2-3.1 cm/m2 LVIDs: 2.63 2.0-3.6 cm LVPWd: 1.53 0.7-1.1 cm LA Diam: 4.00 2.7-3.8/3.0-4.0 cm LAIDs Index: 1.59 1.5-2.3 cm/m2 LV Mass: 321.45 67-162/88-224 g LV Mass Index: 128.07 43-95/49-115 g/m2 LVOT Diam: 2.40 3.0+(-)1.3 cm 2D Systolic Function EF 4C: 65.50 >55% EF 2C: 51.80 >55% EF BiP: 58.40 >55% Mitral Valve MV Pk E: 1.02 MV Decel Time: 166.00 E'Lateral: 9.57 E'Medial: 9.46 E/E' Med: 10.80 E/E' Lat: 10.70 PHT: 49.00 MVA PHT: 4.49 Decel Wright: 6.18 Aortic Valve AoV Pk Fransico: 1.61 AoV Mn Fransico: 1.08 AoV VTI: 0.26 AoV Pk Grad: 10.00 Aov Mn Grad: 5.00 JESUSITA Cont.VTI: 2.28 LVOT LVOT Pk Fransico: 0.74 LVOT Mn Fransico: 0.52 LVOT VTI: 0.13 LVOT Pk Grad: 2.00 LVOT Mn Grad: 1.00 LVOT Diam: 2.40 LVOT Area: 4.52 Diastolic Function MV Pk E: 1.02 E'Medial: 9.46 E/E' Med: 10.80 E' Laterial: 9.57 E/E' Lat: 10.70 Right Ventricle TAPSE (mm): 22.60 TVS' Fransico: 8.92 Tricuspid Valve TR Pk Fransico: 2.24 TR Pk Grad: 20.00 Great Vessels Aorta Sinus of Valsalva: 3.40 2.0-3.5 cm Ao Asc: 3.30 2.1-3.4 cm Pulmonary Valve PV Pk Fransico: 0.84 Peak PV Grad: 3.00 Updated in Other Vendor System with Status of Final Jasiel Duvall MD electronically signed on 01/03/2025 4:12:53 PM with status of Final
[2025-01-03 07:06] LABS: Basophils Absolute Auto 0.1 X10*3/uL (0.0-0.2); Basophils Percent Auto 0.4 % (0-2); Eosinophils Absolute Auto 0.1 X10*3/uL (0.0-0.4); Eosinophils Percent Auto 1.3 % (0-4); Hematocrit 33.4 % (42.0-52.0); Hemoglobin 11.1 g/dl (14.0-18.0); Imm Gran Abs Auto 0.06 X10*3/uL (0.00-0.03); Imm Gran Pct Auto 0.5 % (0.0-0.4); Lymphocytes Percent Auto 8.8 % (20-40); MANUAL DIFF FLAG SCAN; Mean Corpuscular HGB Conc 33.2 g/dl (31.0-36.0); Mean Corpuscular Hemoglobin 30.6 pg (27.0-33.0); Mean Platelet Volume 9.4 fL (9.4-12.4); Monocytes Absolute Auto 1.6 X10*3/uL (0.1-1.2); Monocytes Percent Auto 14.3 % (2-11); Neutrophils Absolute Auto 8.4 x10*3/uL (2.0-8.3); Neutrophils Percent Auto 74.7 % (45-73); Platelet Count 382 X10*3/uL (160-400); Red Blood Count 3.63 X10*6/uL (4.60-5.80); Red Cell Distribution Width 14.4 % (11.0-16.0); SCAN SMEAR FLAG 1; White Blood Count 11.2 X10*3/uL (4.8-10.8)
[2025-01-03 07:15] LABS: Alanine Aminotransferase 26 U/L (0-40); Albumin Level 3.4 g/dL (3.5-5.0); Alkaline Phosphatase 87 U/L (39-117); Anion Gap 16 (12-20); Aspartate Amino Transferase 50 U/L (5-37); Bilirubin Total 0.6 mg/dL (0.0-1.0); Blood Urea Nitrogen 29 mg/dL (9-16); Calcium 9.3 mg/dL (8.4-10.2); Carbon Dioxide 23 mmol/L (22-29); Chloride 98 mmol/L (96-108); Creatinine Clr Calc Pharmacy 76.9; Estimated Glomerular Filt Rate > 60; Glucose Fasting 142 mg/dL (60-99); Potassium 3.5 mmol/L (3.3-5.1); Sodium 133 mmol/L (135-145); Total Protein 6.9 g/dL (6.5-8.0)
[2025-01-03 07:33] LABS: Glucose, Whole Blood 118 mg/dL (60-115)
[2025-01-03 07:37] LABS: SLIDE REVIEW VERIFIED
[2025-01-03] MEDS: Valsartan 160 MG TABLET PO (08:27)
[2025-01-03] MEDS: Primidone 50 MG TABLET PO ×2 (08:27→21:02)
[2025-01-03] MEDS: Bisoprolol Fumarate 5 MG TABLET PO (08:28)
[2025-01-03] MEDS: hydroCHLOROthiazide 12.5 MG TABLET 6.25 MG PO (08:28)
[2025-01-03] MEDS: Furosemide 40 MG/4 ML VIAL IVPUSH (08:29)
[2025-01-03] MEDS: 0.9 % Sodium Chloride Flush 3 ML SYRINGE IVFLUSH ×3 (08:29→21:04)
[2025-01-03] MEDS: Insulin Glargine,Hum.rec.anlog 100 UNIT/ML 10 ML VIAL 21 UNIT SUBCUT (08:34)
--- NOTE | 2025-01-03 10:35 | P.PNCA_ITS ---
Subjective Subjective Date of Service: 01/03/25 Principal diagnosis: CHF, atrial fibrillation Interval history: patient has very tepid diuresis over the last couple of days. Continues to have significant leg swelling bilaterally, right greater than left as well as bilateral arm swelling. Continues to be short of breath. Remains in AFib with borderline rate control. Denies any palpitations. No chest pain. Review of Systems Constitutional: Reports no additional constitutional complaints Cardiovascular: Denies chest pain, Reports leg edema, Denies lightheadedness, Denies Loss of Consciousness, Denies palpitations, Reports dyspnea on exertion and Reports orthopnea Respiratory: Denies no additional respiratory complaints and Reports dyspnea on exertion Skin/Breast: Denies system reviewed and no additional complaints, except as docu Psychiatric: Denies no additional psychiatric complaints Endocrine: Denies no additional endocrine complaints and Denies palpitations Physical Exam Vital Signs: Last Vital Signs Temp 97.9 F 01/03/25 07:20 Pulse 76 01/03/25 07:20 Resp 18 01/03/25 07:20 BP 113/65 01/03/25 08:29 Pulse Ox 95 01/03/25 07:20 O2 Del Method Room Air 01/03/25 07:20 BMI result Body Mass Index 38.1 Const General: cooperative, comfortable, no acute distress, alert and awake Nutritional Appearance: obese Orientation/consciousness: patient oriented x3 Neck Neck: Yes trachea midline, Yes supple and Yes JVD Resp Effort & Inspection: normal respiratory effort Auscultation: clear to auscultation bilaterally Cardio Rhythm: abnormal rhythm irregularly irregular Heart sounds: S1 normal heart sound present, S2 normal heart sound present, no click, no gallops and no murmurs GI Auscultation: normal bowel sounds Skin General skin exam: no rashes or lesions noted Neuro General: patient oriented x3 and no focal motor deficits Extrem General: No clubbing, No cyanosis and Yes edema Objective Labs and Meds 01/03/25 06:26 01/03/25 06:27 Lab results: Laboratory Results - last 24 hr 01/02/25 01/02/25 01/02/25 11:43 16:24 19:15 WBC RBC Hgb Hct MCV MCH MCHC RDW Plt Count MPV Immature Gran % (Auto) Neut % (Auto) Lymph % (Auto) [place]orte % (Auto) Eos % (Auto) Baso % (Auto) Lymph # (Auto) [place] # (Auto) Eos # (Auto) Baso # (Auto) Abs Immat Gran (auto) Absolute Neuts (auto) Absolute Nucleated RBC Nucleated RBC % (auto) Smear Tech's Comments Sodium Potassium Chloride Carbon Dioxide Anion Gap BUN Creatinine Estim Creat Clear Calc Estimated GFR POC Glucose 202 H 179 H 218 H Fasting Glucose Calcium Total Bilirubin AST ALT Alkaline Phosphatase Total Protein Albumin 01/03/25 01/03/25 01/03/25 06:26 06:27 07:27 WBC 11.2 H RBC 3.63 L Hgb 11.1 L Hct 33.4 L MCV 92.0 MCH 30.6 MCHC 33.2 RDW 14.4 Plt Count 382 MPV 9.4 Immature Gran % (Auto) 0.5 H Neut % (Auto) 74.7 H Lymph % (Auto) 8.8 L [place] % (Auto) 14.3 H Eos % (Auto) 1.3 Baso % (Auto) 0.4 Lymph # (Auto) 1.0 L [place] # (Auto) 1.6 H Eos # (Auto) 0.1 Baso # (Auto) 0.1 Abs Immat Gran (auto) 0.06 H Absolute Neuts (auto) 8.4 H Absolute Nucleated RBC 0.000 Nucleated RBC % (auto) 0.0 Smear Tech's Comments VERIFIED Sodium 133 L Potassium 3.5 Chloride 98 Carbon Dioxide 23 Anion Gap 16 BUN 29 H Creatinine 1.14 Estim Creat Clear Calc 76.9 Estimated GFR > 60 POC Glucose 118 H Fasting Glucose 142 H Calcium 9.3 Total Bilirubin 0.6 AST 50 H ALT 26 Alkaline Phosphatase 87 Total Protein 6.9 Albumin 3.4 L Progress Note: A&P Assessment and plan (1) Acute congestive heart failure: Status: Acute Assessment and Plan: Acute congestive heart failure in this elderly gentleman with most likely due to chronic persistent atrial fibrillation. Will obtain echocardiogram to assess for LV function as well as to evaluate for pulmonary hypertension and filling pressures. Also to evaluate for pericardial effusion. Continue IV diuresis of switch him to Lasix drip 5 mg an hour and add Jardiance 10 mg and switch amlodipine to spironolactone 25 mg to his regimen. Continue to monitor strict intake and output chart. Follow-up BNP and BNP and electrolytes tomorrow. Will continue to monitor him. At this point time I do not think that we need to pursue aggressively synchronized cardioversion as this atrial fibrillation is not new onset. Eventually I think he might benefit from rhythm control approach but that will depend on multiple different factors including biatrial chamber size. (2) Persistent atrial fibrillation: Status: Acute Assessment and Plan: Persistent atrial fibrillation borderline rate control at this point time. Continue current rate control therapy. Will continue monitor full disclosure cardiac telemetry. Has been on Xarelto for anticoagulation for many months religiously. Will continue the same. Hold off on acute synchronized cardioversion at this point time. Will continue to follow with you Time Spent With Patient Time: Total time managing care of this patient today ____ minutes. Progress Note: Quality Stroke Does the patient have a stroke diagnosis?: No Procedures Date of Service Date of Service: 01/03/25
[2025-01-03 11:48] LABS: Glucose, Whole Blood 218 mg/dL (60-115)
--- NOTE | 2025-01-03 12:38 | HO.PM.IMPN ---
Subjective Subjective Date of Service: 01/03/25 Interval History: Pt reports continued SOB and HOOKS Has not been urinating much despite diuretics Continued lower leg edema Reports feeling heart racing when he stands and walks Denies chest pain/pressure No cough Physical Exam Vital Signs: Vital Signs: Last Vital Signs Temp 97.9 F 01/03/25 12:00 Pulse 86 01/03/25 12:00 Resp 18 01/03/25 12:00 BP 101/66 01/03/25 12:00 Pulse Ox 94 01/03/25 12:00 O2 Del Method Room Air 01/03/25 12:00 BMI result Body Mass Index 38.1 General: AOx3, no acute distress Resp: Expiratory coarse breath sounds CVS: S1, S2, RRR GI: +BS, NT, no distention Skin: Warm, dry Neuro: Cranial nerves II-XII grossly intact bilaterally. Motor grossly intact bilaterally Extremities: 2-3+ bilateral lower leg edema, R>L Psych: Appropriate affect Objective Data Active Medications Acetaminophen (Acetaminophen 325 Mg Tablet) 650 mg PO Q6H PRN PRN Reason: Pain, Mild 1-3,fever,headache Last Admin: 01/02/25 21:04 Dose: 650 mg Documented By: XAVIER Amlodipine Besylate (Amlodipine Besylate 5 Mg Tablet) 5 mg PO BEDTIME [facility]; Protocol Last Admin: 01/02/25 20:59 Dose: 5 mg Documented By: XAVIER Atorvastatin Calcium (Atorvastatin Calcium 80 Mg Tablet) 80 mg PO BEDTIME [facility] Last Admin: 01/02/25 20:59 Dose: 80 mg Documented By: XAVIER Bisoprolol Fumarate (Bisoprolol Fumarate 5 Mg Tablet) 5 mg PO DAILY [facility] Last Admin: 01/03/25 08:28 Dose: 5 mg Documented By: YURIDIA Calcium Carbonate (Calcium Carbonate 750 Mg Tab.Chew) 750 mg PO Q4H PRN PRN Reason: Heartburn Dextrose (Dextrose 50 % 25 Gm/50 Ml Syringe) 25 gm IVPUSH Q15M PRN; Protocol PRN Reason: per Hypoglycemia Standing Ord. Glucose (Glucose Gel 15 Gm Gel..Gram.) 15 gm PO Q15M PRN; Protocol PRN Reason: per Hypoglycemia Standing Ord. Hydrochlorothiazide (Hydrochlorothiazide 12.5 Mg Tablet) 6.25 mg PO DAILY [facility] Last Admin: 01/03/25 08:28 Dose: 6.25 mg Documented By: YURIDIA Insulin Glargine (Insulin Glargine,Hum.Rec.Anlog 100 Unit/Ml 10 Ml Vial) 21 unit SUBCUT DAILY [facility] Last Admin: 01/03/25 08:34 Dose: 21 unit Documented By: YURIDIA Insulin Human Lispro (Insulin Lispro 100 Unit/Ml 3 Ml Vial) 0 unit SUBCUT QIDACHS [facility]; Protocol Last Admin: 01/03/25 08:20 Dose: Not Given Documented By: YURIDIA Non-Admin Reason: No Insulin Coverage Magnesium Hydroxide (Milk Of Magnesia 30 Ml Oral.Susp) 30 ml PO DAILY PRN PRN Reason: Constipation Melatonin (Melatonin 3 Mg Tablet) 6 mg PO BEDTIME PRN PRN Reason: Insomnia Primidone (Primidone 50 Mg Tablet) 50 mg PO BID [facility] Last Admin: 01/03/25 08:27 Dose: 50 mg Documented By: YURIDIA Rivaroxaban (Rivaroxaban 20 Mg Tablet) 20 mg PO DAILY@1700 [facility] Last Admin: 01/02/25 17:07 Dose: 20 mg Documented By: NEY Sodium Chloride (0.9 % Sodium Chloride Flush 3 Ml Syringe) 3 ml IVFLUSH QSHIFT [facility] Last Admin: 01/03/25 08:29 Dose: 3 ml Documented By: YURIDIA Valsartan (Valsartan 160 Mg Tablet) 160 mg PO DAILY [facility] Last Admin: 01/03/25 08:27 Dose: 160 mg Documented By: YURIDIA Labs 01/03/25 06:26 01/03/25 06:27 Labs: Laboratory Results - last 24 hr 01/02/25 01/02/25 01/03/25 16:24 19:15 06:26 MCV 92.0 MCH 30.6 MCHC 33.2 RDW 14.4 Plt Count 382 MPV 9.4 Immature Gran % (Auto) 0.5 H Neut % (Auto) 74.7 H Lymph % (Auto) 8.8 L [place] % (Auto) 14.3 H Eos % (Auto) 1.3 Baso % (Auto) 0.4 Lymph # (Auto) 1.0 L [place] # (Auto) 1.6 H Eos # (Auto) 0.1 Baso # (Auto) 0.1 Abs Immat Gran (auto) 0.06 H Absolute Neuts (auto) 8.4 H Absolute Nucleated RBC 0.000 Nucleated RBC % (auto) 0.0 Smear Tech's Comments VERIFIED Anion Gap Estim Creat Clear Calc Estimated GFR POC Glucose 179 H 218 H Fasting Glucose Calcium Total Bilirubin AST ALT Alkaline Phosphatase Total Protein Albumin 01/03/25 01/03/25 01/03/25 06:27 07:27 11:42 MCV MCH MCHC RDW Plt Count MPV Immature Gran % (Auto) Neut % (Auto) Lymph % (Auto) [place] % (Auto) Eos % (Auto) Baso % (Auto) Lymph # (Auto) [place] # (Auto) Eos # (Auto) Baso # (Auto) Abs Immat Gran (auto) Absolute Neuts (auto) Absolute Nucleated RBC Nucleated RBC % (auto) Smear Tech's Comments Anion Gap 16 Estim Creat Clear Calc 76.9 Estimated GFR > 60 POC Glucose 118 H 218 H Fasting Glucose 142 H Calcium 9.3 Total Bilirubin 0.6 AST 50 H ALT 26 Alkaline Phosphatase 87 Total Protein 6.9 Albumin 3.4 L Microbiology Microbiology Results: Microbiology 01/01/25 19:48 Blood Culture - Preliminary Blood - Venous No growth after 24 hours. 01/01/25 19:48 Blood Culture - Preliminary Blood - Venous No growth after 24 hours. Assessment and Plan (1) Acute congestive heart failure: Status: Acute Plan Pt is a 79-year-old male with a PMH significant for paroxysmal AFib on Xarelto, HTN, HLD, insulin-dependent type 2 diabetes, HFpEF, CKD 3, and neuropathy who presented to the ED complaining of SOB and HOOKS x2-3 days. Pt is admitted to the hospital for treatment and further evaluation of acute CHF exacerbation. Acute HFpEF exacerbation Echo today showed LVEF 55-60% with moderate left ventricular hypertrophy and significantly elevated right atrial pressures Seen by Cardiology, plan for CELI and cardioversion once diuresed Will switch Lasix IV push to Lasix drip at 5 mg/hr Start on Jardiance 10 mg daily per Cardiology Will stop amlodipine, start spironolactone 25 mg daily per Cardiology Follow BNP, BMP AFib with RVR Patient's HR initially as high as 108 Rate currently better controlled in the 70s-80s Continue Xarelto Hyponatremia, mild Sodium 133 Trend labs CKD 3 Creatinine initially 1.45, improved to 1.14 today Follow creatinine Insulin-dependent type 2 diabetes Sliding-scale insulin, Lantus Diabetic diet HLD Continue statin HTN BP well-controlled with amlodipine and irbesartan Monitor BP closely as pt now on Lasix drip Full code DVT prophylaxis: On Xarelto Pt will require continued hospital stay for aggressive IV diuresing with close monitoring of cardiac function and labs. Quality Stroke Does the patient have a stroke diagnosis?: No VTE Prior VTE?: No VTE Risk Level:: Medical - moderate - high VTE Device Contraindication: Treatment Not Indicated VTE Drug Contraindication: N/A - Med Ordered
[2025-01-03] MEDS: Empagliflozin 10 MG TABLET PO (12:53)
[2025-01-03] MEDS: Insulin Lispro 100 UNIT/ML 3 ML VIAL SUBCUT ×3 (12:54→21:02)
[2025-01-03] MEDS: Furosemide 200 MG in 0.9 % Sodium Chloride 80 ML IVCONT (14:43)
[2025-01-03] MEDS: Rivaroxaban 20 MG TABLET PO (16:29)
[2025-01-03 16:37] LABS: Glucose, Whole Blood 190 mg/dL (60-115)
[2025-01-03 18:28] LABS: Lyme Abs Screen <0.90 index
[2025-01-03 20:47] LABS: Glucose, Whole Blood 165 mg/dL (60-115)
[2025-01-03] MEDS: Atorvastatin Calcium 80 MG TABLET PO (21:02)
[2025-01-03] MEDS: Melatonin 3 MG TABLET 6 MG PO (22:43)
[2025-01-04] VITALS (9 sets, daily range): BP systolic 92–118; BP diastolic 54–71; PULSE 80–87; RESP 16–18; TEMP 35.9–37.1; O2SAT 94–96
[2025-01-04 07:12] LABS: Glucose, Whole Blood 133 mg/dL (60-115)
[2025-01-04 07:47] LABS: Anion Gap 17 (12-20); Blood Urea Nitrogen 24 mg/dL (9-16); Calcium 9.4 mg/dL (8.4-10.2); Carbon Dioxide 27 mmol/L (22-29); Chloride 93 mmol/L (96-108); Creatinine Clr Calc Pharmacy 71.9; Estimated Glomerular Filt Rate 58; Glucose Random 133 mg/dL (60-115); Potassium 3.3 mmol/L (3.3-5.1); Sodium 134 mmol/L (135-145)
[2025-01-04 07:54] LABS: B Type Natriuretic Peptide 342 pg/mL (<100)
[2025-01-04] MEDS: 0.9 % Sodium Chloride Flush 3 ML SYRINGE IVFLUSH ×3 (08:50→22:17)
[2025-01-04] MEDS: hydroCHLOROthiazide 12.5 MG TABLET 6.25 MG PO (08:50)
[2025-01-04] MEDS: Empagliflozin 10 MG TABLET PO (08:51)
[2025-01-04] MEDS: Valsartan 160 MG TABLET PO (08:51)
[2025-01-04] MEDS: Primidone 50 MG TABLET PO ×2 (08:51→22:14)
[2025-01-04] MEDS: Spironolactone 25 MG TABLET PO (08:51)
[2025-01-04] MEDS: Bisoprolol Fumarate 5 MG TABLET PO (08:51)
[2025-01-04] MEDS: Insulin Glargine,Hum.rec.anlog 100 UNIT/ML 10 ML VIAL 21 UNIT SUBCUT (08:52)
[2025-01-04] MEDS: Acetaminophen 325 MG TABLET 650 MG PO (08:54)
--- NOTE | 2025-01-04 09:59 | PM.PNCARD ---
Subjective Subjective Date of Service: 01/04/25 Principal diagnosis: CHF, atrial fibrillation Interval history: Patient is doing better. As overnight diuresed about 2 L. His leg edema has improved as per him. His shortness of breath is less. However BNP is still at the same level. Review of Systems Constitutional: Reports weakness Eyes: Reports no additional eye complaints Cardiovascular: Denies chest pain, Reports leg edema, Denies palpitations and Reports dyspnea on exertion Respiratory: Reports dyspnea on exertion Genitourinary: Reports no additional male genitourinary complaints Musculoskeletal: Reports no additional musculoskeletal complaints Reports weakness Endocrine: Denies palpitations Physical Exam Vital Signs: Last Vital Signs Temp 97.2 F 01/04/25 07:25 Pulse 87 01/04/25 07:25 Resp 17 01/04/25 07:25 BP 104/70 01/04/25 08:51 Pulse Ox 96 01/04/25 07:25 O2 Del Method Room Air 01/04/25 07:25 BMI result Body Mass Index 38.1 Const General: cooperative, comfortable, no acute distress, alert and awake Nutritional Appearance: obese Orientation/consciousness: patient oriented x3 Neck Neck: Yes trachea midline, Yes supple and Yes JVD Resp Effort & Inspection: normal respiratory effort Auscultation: clear to auscultation bilaterally Cardio Rhythm: abnormal rhythm irregularly irregular Heart sounds: S1 normal heart sound present, S2 normal heart sound present, no click, no gallops and no murmurs GI Auscultation: normal bowel sounds Skin General skin exam: no rashes or lesions noted Neuro General: patient oriented x3 and no focal motor deficits Extrem General: No clubbing, No cyanosis and Yes edema Objective Labs and Meds 01/03/25 06:26 01/04/25 07:11 Lab results: Laboratory Results - last 24 hr 01/02/25 01/03/25 01/03/25 02:00 11:42 16:15 Sodium Potassium Chloride Carbon Dioxide Anion Gap BUN Creatinine Estim Creat Clear Calc Estimated GFR POC Glucose 218 H 190 H Random Glucose Calcium B-Natriuretic Peptide Lyme Screen IgG & IgM <0.90 01/03/25 01/04/25 01/04/25 20:44 06:56 07:11 Sodium 134 L Potassium 3.3 Chloride 93 L Carbon Dioxide 27 Anion Gap 17 BUN 24 H Creatinine 1.22 Estim Creat Clear Calc 71.9 Estimated GFR 58 POC Glucose 165 H 133 H Random Glucose 133 H Calcium 9.4 B-Natriuretic Peptide 342 H Lyme Screen IgG & IgM Progress Note: A&P Assessment and plan (1) Acute congestive heart failure: Status: Acute Assessment and Plan: Congestive heart failure which is improving gradually. Continue current gentle diuresis up to 1.5-2 L a day. Continue Lasix drip. Continue Jardiance and spironolactone. Can not maximize due to blood pressure on the lower side. Strict intake and output chart needs to be pursued. Continue monitor renal function electrolytes. Consider physical therapy consult. Will eventually need rhythm control. See below. (2) Persistent atrial fibrillation: Status: Acute Assessment and Plan: Atrial fibrillation borderline rate control. Most likely will require rhythm control to help with his heart failure syndrome. This seems to be the only issue that has been potentiate in his heart failure syndrome. Will start him on amiodarone loading 400 mg b.i.d. today for 2 weeks followed by 200 mg daily and will schedule him for cardioversion at the end of loading. Continue full oral anticoagulation Xarelto. Will follow with you. Thank you for allowing me to partake in his care Time Spent With Patient Time: Total time managing care of this patient today ____ minutes. Progress Note: Quality Stroke Does the patient have a stroke diagnosis?: No Procedures Date of Service Date of Service: 01/04/25
[2025-01-04 11:22] LABS: Glucose, Whole Blood 208 mg/dL (60-115)
[2025-01-04] MEDS: Insulin Lispro 100 UNIT/ML 3 ML VIAL SUBCUT ×3 (12:06→22:13)
--- NOTE | 2025-01-04 13:02 | HO.PM.IMPN ---
Subjective Subjective Date of Service: 01/04/25 Interval History: swelling in legs and dyspnea improved; dry weight somewhere between 270 and 275 lb no chest pain Review of Systems Review of Systems: Yes all other systems are reviewed and are negative Physical Exam Vital Signs: Vital Signs: Last Vital Signs Temp 97.3 F 01/04/25 11:42 Pulse 87 01/04/25 11:42 Resp 16 01/04/25 11:42 BP 92/54 L 01/04/25 11:42 Pulse Ox 94 01/04/25 11:42 O2 Del Method Room Air 01/04/25 11:42 BMI result Body Mass Index 38.1 Gen: in no acute distress HEENT: sclera anicteric, moist mucus membranes Neck: supple, JVD present Lungs: clear to auscultation bilaterally Heart: irregular, rate-controlled, no murmurs Abd: soft, non-tender, non-distended Ext: 3+ bilateral leg edema Skin: warm/well-perfused Neuro: alert and oriented x3, no focal findings Psych: appropriate affect Objective Data Active Medications Acetaminophen (Acetaminophen 325 Mg Tablet) 650 mg PO Q6H PRN PRN Reason: Pain, Mild 1-3,fever,headache Last Admin: 01/04/25 08:54 Dose: 650 mg Documented By: YURIDIA Atorvastatin Calcium (Atorvastatin Calcium 80 Mg Tablet) 80 mg PO BEDTIME [facility] Last Admin: 01/03/25 21:02 Dose: 80 mg Documented By: ALCIDES Bisoprolol Fumarate (Bisoprolol Fumarate 5 Mg Tablet) 5 mg PO DAILY [facility] Last Admin: 01/04/25 08:51 Dose: 5 mg Documented By: YURIDIA Calcium Carbonate (Calcium Carbonate 750 Mg Tab.Chew) 750 mg PO Q4H PRN PRN Reason: Heartburn Dextrose (Dextrose 50 % 25 Gm/50 Ml Syringe) 25 gm IVPUSH Q15M PRN; Protocol PRN Reason: per Hypoglycemia Standing Ord. Empagliflozin (Empagliflozin 10 Mg Tablet) 10 mg PO DAILY [facility] Last Admin: 01/04/25 08:51 Dose: 10 mg Documented By: YURIDIA Glucose (Glucose Gel 15 Gm Gel..Gram.) 15 gm PO Q15M PRN; Protocol PRN Reason: per Hypoglycemia Standing Ord. Hydrochlorothiazide (Hydrochlorothiazide 12.5 Mg Tablet) 6.25 mg PO DAILY [facility] Last Admin: 01/04/25 08:50 Dose: 6.25 mg Documented By: YURIDIA Furosemide 200 mg/ Sodium (Chloride) 100 mls @ 2.5 mls/hr IVCONT .Q24H [facility] Last Admin: 01/03/25 14:43 Dose: 5 mg/hr, 2.5 mls/hr Documented By: YURIDIA Insulin Glargine (Insulin Glargine,Hum.Rec.Anlog 100 Unit/Ml 10 Ml Vial) 21 unit SUBCUT DAILY [facility] Last Admin: 01/04/25 08:52 Dose: 21 unit Documented By: YURIDIA Insulin Human Lispro (Insulin Lispro 100 Unit/Ml 3 Ml Vial) 0 unit SUBCUT QIDACHS [facility]; Protocol Last Admin: 01/04/25 12:06 Dose: 4 unit Documented By: YURIDIA Magnesium Hydroxide (Milk Of Magnesia 30 Ml Oral.Susp) 30 ml PO DAILY PRN PRN Reason: Constipation Melatonin (Melatonin 3 Mg Tablet) 6 mg PO BEDTIME PRN PRN Reason: Insomnia Last Admin: 01/03/25 22:43 Dose: 6 mg Documented By: ALCIDES Primidone (Primidone 50 Mg Tablet) 50 mg PO BID [facility] Last Admin: 01/04/25 08:51 Dose: 50 mg Documented By: YURIDIA Rivaroxaban (Rivaroxaban 20 Mg Tablet) 20 mg PO DAILY@1700 [facility] Last Admin: 01/03/25 16:29 Dose: 20 mg Documented By: YURIDIA Sodium Chloride (0.9 % Sodium Chloride Flush 3 Ml Syringe) 3 ml IVFLUSH QSHIFT [facility] Last Admin: 01/04/25 08:50 Dose: 3 ml Documented By: YURIDIA Spironolactone (Spironolactone 25 Mg Tablet) 25 mg PO DAILY [facility]; Protocol Last Admin: 01/04/25 08:51 Dose: 25 mg Documented By: YURIDIA Valsartan (Valsartan 160 Mg Tablet) 160 mg PO DAILY [facility] Last Admin: 01/04/25 08:51 Dose: 160 mg Documented By: YURIDIA Labs 01/03/25 06:26 01/04/25 07:11 Labs: Laboratory Results - last 24 hr 01/02/25 01/03/25 01/03/25 02:00 16:15 20:44 Anion Gap Estim Creat Clear Calc Estimated GFR POC Glucose 190 H 165 H Random Glucose Calcium B-Natriuretic Peptide Lyme Screen IgG & IgM <0.90 Lyme Progressive Test TNP 01/04/25 01/04/25 01/04/25 06:56 07:11 11:14 Anion Gap 17 Estim Creat Clear Calc 71.9 Estimated GFR 58 POC Glucose 133 H 208 H Random Glucose 133 H Calcium 9.4 B-Natriuretic Peptide 342 H Lyme Screen IgG & IgM Lyme Progressive Test Microbiology Microbiology Results: Microbiology 01/01/25 19:48 Blood Culture - Preliminary Blood - Venous No growth after 48 hours. 01/01/25 19:48 Blood Culture - Preliminary Blood - Venous No growth after 48 hours. Assessment and Plan (1) Acute congestive heart failure: Status: Acute Plan d3 for 79yo M with pAF on rivaroxaban, HTN, HLD, DM2, HFpEF, CKD3, and neuropathy presenting with exertional dyspnea for 2-3d, admitted for CHF exacerbation acute-chronic HFpEF - continue IV furosemide drip 5 mg/hr, negative net 2.4L thus so far; monitor lytes, BNP, I/O, weights - TTE 01/03: 1. Technically limited study due to body habitus 2. Normal LV ejection fraction 55-60% with moderate left ventricular hypertrophy 3. Cardiac valvular Dopplers within normal limits but cardiac valves are poorly visualized 4. Significantly elevated right atrial pressures - continue spironolactone + empagliflozin - Cardiology following AF/RVR - heart rate better controlled now, continue bisoprolol - start amiodarone load 400 mg bid 01/04-01/18, then 200 mg daily; outpt cardioversion at end of loading - continue rivaroxaban CKD3 - SCr around baseline; monitor with diuresis HTN - continue bisoprolol + valsartan + spironolactone hypoNa, mild - d/c HCTZ HLD - statin DM2 - basal-bolus insulin VTE ppx - rivoroxaban dispo - PT eval In my clinical judgment, the patient requires continued inpatient hospitalization for the following reasons: IV diuresis Total time managing care of this patient today: 40 minutes. Quality Stroke Does the patient have a stroke diagnosis?: No VTE Prior VTE?: No VTE Risk Level:: Medical - moderate - high VTE Device Contraindication: Treatment Not Indicated VTE Drug Contraindication: N/A - Med Ordered
[2025-01-04] MEDS: Furosemide 200 MG in 0.9 % Sodium Chloride 80 ML IVCONT (14:45)
[2025-01-04] MEDS: Amiodarone HCL 200 MG TABLET 400 MG PO ×2 (14:45→22:14)
[2025-01-04 16:17] LABS: Glucose, Whole Blood 161 mg/dL (60-115)
--- NOTE | 2025-01-04 16:39 | HO.WOUND ---
Wound Consult: Initial 79yr old? [place] [facility] [place] - See progress notes and H&P for detailed history.? Wound consult placed for Left Gluteal Fold.? Patient agreeable to assessment and photo documentation.? Left Gluteal fold Etiology: ?Unstageable Pressure Injury ?Present on Admission Measurements: 1.5cm x 1cm x 0.2cm Wound Bed: adherent yellow slough base Drainage / Odor: None at this time Edges: ? rolled and irregular [place] wound: MASD - red pink moist blanchable tissue ? No Induration, Fluctuance or Warmth noted Pain: pain and tenderness reported Goals of Treatment: ? Off load pressure allow for autolytic debridement and protect from friction At this time patient prefers to use foam alone and not add triad - agreeable to this at this time. If patient is agreeable please add Triad cream to base of wound bed. Recommendations: 1. Turn and Reposition every 2 hours and as needed for patient comfort.? Use pillows or wedges to support off loading positions. 2. Off Load all bony prominences with use of pillows and heel boots if needed.? Apply Preventative foams where needed. ? 3. Monitor for incontinence and moisture control, use barrier creams when needed for prevention and treatment. 4. Provide adequate and supplemental nutrition.? 5. Continue low air loss mattress. 6. When applicable maintain blood glucose levels per Providers order. Left Gluteal Fold - Off Load Pressure with Q2 hr turns and use of pillows - Cleanse with PH balance spray or wipes, pat dry. ?Apply thin layer of Triad to wound bed. Do not remove all of paste between applications as this may cause further skin damage.? Cover with foam dressing to aid in off loading and protection from friction. Change every 3 days and PRN. Waffle cushion when up to chair. Re-consult wound care Nurse for wound deterioration or wound changes.
[2025-01-04] MEDS: Rivaroxaban 20 MG TABLET PO (17:09)
[2025-01-04 20:22] LABS: Glucose, Whole Blood 240 mg/dL (60-115)
[2025-01-04] MEDS: Atorvastatin Calcium 80 MG TABLET PO (22:14)
[2025-01-05] VITALS (10 sets, daily range): BP systolic 88–111; BP diastolic 50–58; PULSE 75–94; RESP 16–18; TEMP 36.2–37.1; O2SAT 93–98
[2025-01-05] MEDS: Milk of Magnesia 30 ML ORAL.SUSP PO (05:54)
[2025-01-05 07:07] LABS: Anion Gap 16 (12-20); Blood Urea Nitrogen 27 mg/dL (9-16); Calcium 9.5 mg/dL (8.4-10.2); Carbon Dioxide 31 mmol/L (22-29); Chloride 90 mmol/L (96-108); Creatinine Clr Calc Pharmacy 71.9; Estimated Glomerular Filt Rate 58; Glucose Random 154 mg/dL (60-115); Magnesium 1.8 mg/dL (1.6-2.6); Potassium 3.1 mmol/L (3.3-5.1); Sodium 134 mmol/L (135-145)
[2025-01-05 07:11] LABS: B Type Natriuretic Peptide 323 pg/mL (<100)
[2025-01-05 07:16] LABS: Glucose, Whole Blood 158 mg/dL (60-115)
[2025-01-05] MEDS: Bisoprolol Fumarate 5 MG TABLET PO (08:02)
[2025-01-05] MEDS: Empagliflozin 10 MG TABLET PO (08:02)
[2025-01-05] MEDS: Amiodarone HCL 200 MG TABLET 400 MG PO (08:02)
[2025-01-05] MEDS: Primidone 50 MG TABLET PO ×2 (08:02→20:08)
[2025-01-05] MEDS: Insulin Glargine,Hum.rec.anlog 100 UNIT/ML 10 ML VIAL 21 UNIT SUBCUT (08:03)
[2025-01-05] MEDS: Insulin Lispro 100 UNIT/ML 3 ML VIAL SUBCUT ×4 (08:03→20:09)
[2025-01-05] MEDS: Potassium Chloride ER 20 MEQ TAB.ER.PRT PO (09:33)
[2025-01-05 11:21] LABS: Glucose, Whole Blood 189 mg/dL (60-115)
--- NOTE | 2025-01-05 11:29 | PM.PNCARD ---
Subjective Subjective Date of Service: 01/05/25 Principal diagnosis: CHF, atrial fibrillation Interval history: Patient is diuresing well. Although noted low blood pressure. Denies any lightheadedness. BNP still elevated. Kidney functions are stable. Overall he said weight loss about 13 lb. Heart rate is well controlled. Was started on amiodarone yesterday. Review of Systems Constitutional: Reports no additional constitutional complaints Cardiovascular: Denies chest pain, Reports leg edema, Denies lightheadedness, Denies palpitations and Reports dyspnea on exertion Respiratory: Denies no additional respiratory complaints and Reports dyspnea on exertion Musculoskeletal: Reports no additional musculoskeletal complaints Endocrine: Denies palpitations Physical Exam Vital Signs: Last Vital Signs Temp 98.5 F 01/05/25 07:30 Pulse 94 01/05/25 07:30 Resp 16 01/05/25 07:30 BP 91/57 L 01/05/25 07:30 Pulse Ox 96 01/05/25 07:30 O2 Del Method Room Air 01/05/25 07:30 BMI result Body Mass Index 38.1 Const General: cooperative, comfortable, no acute distress, alert and awake Nutritional Appearance: obese Orientation/consciousness: patient oriented x3 Neck Neck: Yes trachea midline, Yes supple and Yes JVD Resp Effort & Inspection: normal respiratory effort Auscultation: clear to auscultation bilaterally Cardio Rhythm: abnormal rhythm irregularly irregular Heart sounds: S1 normal heart sound present, S2 normal heart sound present, no click, no gallops and no murmurs GI Auscultation: normal bowel sounds Skin General skin exam: no rashes or lesions noted Neuro General: patient oriented x3 and no focal motor deficits Extrem General: No clubbing, No cyanosis and Yes edema Objective Labs and Meds 01/03/25 06:26 01/05/25 06:04 Lab results: Laboratory Results - last 24 hr 01/02/25 01/04/25 01/04/25 02:00 16:06 20:09 Hold Purple Top Sodium Potassium Chloride Carbon Dioxide Anion Gap BUN Creatinine Estim Creat Clear Calc Estimated GFR POC Glucose 161 H 240 H Random Glucose Calcium Magnesium B-Natriuretic Peptide Lyme Progressive Test TNP 01/05/25 01/05/25 01/05/25 06:04 07:09 11:17 Hold Purple Top SEE NOTE Sodium 134 L Potassium 3.1 L Chloride 90 L Carbon Dioxide 31 H Anion Gap 16 BUN 27 H Creatinine 1.22 Estim Creat Clear Calc 71.9 Estimated GFR 58 POC Glucose 158 H 189 H Random Glucose 154 H Calcium 9.5 Magnesium 1.8 B-Natriuretic Peptide 323 H Lyme Progressive Test Progress Note: A&P Assessment and plan (1) Acute congestive heart failure: Status: Acute Assessment and Plan: Decompensated congestive heart failure predominantly right heart failure syndrome and still appears to be fluid overloaded. Has been diuresing well. Renal function has remained stable. BNP still at the admission rate. Continue IV diuresis with Lasix drip. Continue Jardiance and spironolactone. Blood pressure is on the softer side. I would hold his bisoprolol as well as valsartan for now. Continue monitor renal function. Strict intake and output chart needs to be pursued. (2) Persistent atrial fibrillation: Status: Acute Assessment and Plan: Persistent atrial fibrillation, rate controlled. Most likely cause for his decompensated congestive heart failure. Will pursue rhythm control as outpatient. Has been taking oral anticoagulation religiously. Has been started on amiodarone 400 mg b.i.d. for rhythm control purposes currently on loading dose. Will most likely require this to pursue rhythm control approach achieve normal sinus rhythm and maintain normal sinus rhythm in the long run. Continue full oral anticoagulation. Will follow with you. Time Spent With Patient Time: Total time managing care of this patient today ____ minutes. Progress Note: Quality Stroke Does the patient have a stroke diagnosis?: No Procedures Date of Service Date of Service: 01/05/25
--- NOTE | 2025-01-05 13:54 | MHC.CM.PN ---
Cm met with pt. to discuss DCP, PT rec: STR, pt. declines to go to [facility]. He said he has a large first fl of his house and will walk laps around it daily. If [facility] is rec. by , [facility] is fine with him. to transport home at [place].
--- NOTE | 2025-01-05 15:22 | HO.PM.IMPN ---
Subjective Subjective Date of Service: 01/05/25 Interval History: continues to diurese no chest pain no lightheadedness BP low this AM Review of Systems Review of Systems: Yes all other systems are reviewed and are negative Physical Exam Vital Signs: Vital Signs: Last Vital Signs Temp 97.4 F 01/05/25 11:50 Pulse 75 01/05/25 11:50 Resp 16 01/05/25 11:50 BP 88/58 L 01/05/25 13:45 Pulse Ox 97 01/05/25 11:50 O2 Del Method Room Air 01/05/25 11:50 BMI result Body Mass Index 38.1 Gen: in no acute distress HEENT: sclera anicteric, moist mucus membranes Neck: supple, JVD present Lungs: clear to auscultation bilaterally Heart: irregular, rate-controlled, no murmurs Abd: soft, non-tender, non-distended Ext: 2+ bilateral leg edema Skin: warm/well-perfused Neuro: alert and oriented x3, no focal findings Psych: appropriate affect Objective Data Active Medications Acetaminophen (Acetaminophen 325 Mg Tablet) 650 mg PO Q6H PRN PRN Reason: Pain, Mild 1-3,fever,headache Last Admin: 01/04/25 08:54 Dose: 650 mg Documented By: YURIDIA Amiodarone HCl (Amiodarone Hcl 200 Mg Tablet) 400 mg PO BID [facility] Last Admin: 01/05/25 08:02 Dose: 400 mg Documented By: KATHRYN Atorvastatin Calcium (Atorvastatin Calcium 80 Mg Tablet) 80 mg PO BEDTIME [facility] Last Admin: 01/04/25 22:14 Dose: 80 mg Documented By: XAVIER Calcium Carbonate (Calcium Carbonate 750 Mg Tab.Chew) 750 mg PO Q4H PRN PRN Reason: Heartburn Dextrose (Dextrose 50 % 25 Gm/50 Ml Syringe) 25 gm IVPUSH Q15M PRN; Protocol PRN Reason: per Hypoglycemia Standing Ord. Empagliflozin (Empagliflozin 10 Mg Tablet) 10 mg PO DAILY [facility] Last Admin: 01/05/25 08:02 Dose: 10 mg Documented By: KATHRYN Glucose (Glucose Gel 15 Gm Gel..Gram.) 15 gm PO Q15M PRN; Protocol PRN Reason: per Hypoglycemia Standing Ord. Furosemide 200 mg/ Sodium (Chloride) 100 mls @ 2.5 mls/hr IVCONT .Q24H [facility] Last Infusion: 01/05/25 13:00 Dose: 0 mg/hr, 0 mls/hr Documented By: KATHRYN Insulin Glargine (Insulin Glargine,Hum.Rec.Anlog 100 Unit/Ml 10 Ml Vial) 21 unit SUBCUT DAILY [facility] Last Admin: 01/05/25 08:03 Dose: 21 unit Documented By: KATHRYN Insulin Human Lispro (Insulin Lispro 100 Unit/Ml 3 Ml Vial) 0 unit SUBCUT QIDACHS [facility]; Protocol Last Admin: 01/05/25 12:15 Dose: 2 unit Documented By: KATHRYN Magnesium Hydroxide (Milk Of Magnesia 30 Ml Oral.Susp) 30 ml PO DAILY PRN PRN Reason: Constipation Last Admin: 01/05/25 05:54 Dose: 30 ml Documented By: XAVIER Melatonin (Melatonin 3 Mg Tablet) 6 mg PO BEDTIME PRN PRN Reason: Insomnia Last Admin: 01/03/25 22:43 Dose: 6 mg Documented By: ALCIDES Potassium Chloride (Potassium Chloride Er 20 Meq Tab.Er.Prt) 20 meq PO DAILY [facility] Last Admin: 01/05/25 09:33 Dose: 20 meq Documented By: KATHRYN Primidone (Primidone 50 Mg Tablet) 50 mg PO BID [facility] Last Admin: 01/05/25 08:02 Dose: 50 mg Documented By: KATHRYN Rivaroxaban (Rivaroxaban 20 Mg Tablet) 20 mg PO DAILY@1700 [facility] Last Admin: 01/04/25 17:09 Dose: 20 mg Documented By: YURIDIA Sodium Chloride (0.9 % Sodium Chloride Flush 3 Ml Syringe) 3 ml IVFLUSH QSHIFT [facility] Last Admin: 01/05/25 08:11 Dose: Not Given Documented By: KATHRYN Non-Admin Reason: IV Running Spironolactone (Spironolactone 25 Mg Tablet) 25 mg PO DAILY [facility]; Protocol Last Admin: 01/05/25 08:49 Dose: Not Given Documented By: KATHRYN Non-Admin Reason: Physician Held Med Labs 01/03/25 06:26 01/05/25 06:04 Labs: Laboratory Results - last 24 hr 01/04/25 01/04/25 01/05/25 16:06 20:09 06:04 Hold Purple Top SEE NOTE Anion Gap 16 Estim Creat Clear Calc 71.9 Estimated GFR 58 POC Glucose 161 H 240 H Random Glucose 154 H Calcium 9.5 Magnesium 1.8 B-Natriuretic Peptide 323 H 01/05/25 01/05/25 07:09 11:17 Hold Purple Top Anion Gap Estim Creat Clear Calc Estimated GFR POC Glucose 158 H 189 H Random Glucose Calcium Magnesium B-Natriuretic Peptide Assessment and Plan (1) Acute congestive heart failure: Status: Acute Plan d4 for 79yo M with pAF on rivaroxaban, HTN, HLD, DM2, HFpEF, CKD3, and neuropathy presenting with exertional dyspnea for 2-3d, admitted for CHF exacerbation acute-chronic HFpEF - continue IV furosemide drip 5 mg/hr, negative net 5.1L thus so far; monitor lytes, BNP, I/O, weights - TTE 01/03: 1. Technically limited study due to body habitus 2. Normal LV ejection fraction 55-60% with moderate left ventricular hypertrophy 3. Cardiac valvular Dopplers within normal limits but cardiac valves are poorly visualized 4. Significantly elevated right atrial pressures - continue spironolactone + empagliflozin; stop bisoprolol + valsartan due to hypotension - Cardiology following AF/RVR - heart rate better controlled now; d/c bisoprolol due to hypotension and started amiodarone load 400 mg bid 01/04-01/18, then 200 mg daily; outpt cardioversion at end of loading - continue rivaroxaban CKD3 - SCr around baseline; monitor with diuresis hypoK - replete; recheck in AM HTN - now hypotensive; d/c bisoprolol + valsartan but continue spironolactone hypoNa, mild - d/c'ed HCTZ and Na improved HLD - statin DM2 - basal-bolus insulin VTE ppx - rivaroxaban dispo - home with VNA In my clinical judgment, the patient requires continued inpatient hospitalization for the following reasons: IV diuresis Total time managing care of this patient today: 40 minutes. Quality Stroke Does the patient have a stroke diagnosis?: No VTE Prior VTE?: No VTE Risk Level:: Medical - moderate - high VTE Device Contraindication: Treatment Not Indicated VTE Drug Contraindication: N/A - Med Ordered
[2025-01-05] MEDS: Furosemide 200 MG in 0.9 % Sodium Chloride 80 ML IVCONT (15:28)
[2025-01-05 16:04] LABS: Glucose, Whole Blood 164 mg/dL (60-115)
[2025-01-05] MEDS: Rivaroxaban 20 MG TABLET PO (16:18)
[2025-01-05] MEDS: Melatonin 3 MG TABLET 6 MG PO (20:08)
[2025-01-05] MEDS: 0.9 % Sodium Chloride Flush 3 ML SYRINGE IVFLUSH (20:08)
[2025-01-05] MEDS: Acetaminophen 325 MG TABLET 650 MG PO (20:08)
[2025-01-05] MEDS: Atorvastatin Calcium 80 MG TABLET PO (20:08)
[2025-01-05 20:50] LABS: Glucose, Whole Blood 156 mg/dL (60-115)
[2025-01-06] VITALS (9 sets, daily range): BP systolic 84–104; BP diastolic 50–57; PULSE 62–84; RESP 16–18; TEMP 36.1–36.3; O2SAT 93–98
[2025-01-06 07:22] LABS: Anion Gap 18 (12-20); Blood Urea Nitrogen 37 mg/dL (9-16); Calcium 9.8 mg/dL (8.4-10.2); Carbon Dioxide 30 mmol/L (22-29); Chloride 92 mmol/L (96-108); Creatinine Clr Calc Pharmacy 54.1; Estimated Glomerular Filt Rate 42; Glucose Random 140 mg/dL (60-115); Potassium 3.5 mmol/L (3.3-5.1); Sodium 136 mmol/L (135-145)
[2025-01-06 07:27] LABS: Glucose, Whole Blood 144 mg/dL (60-115)
[2025-01-06 07:29] LABS: B Type Natriuretic Peptide 275 pg/mL (<100)
[2025-01-06] MEDS: Insulin Glargine,Hum.rec.anlog 100 UNIT/ML 10 ML VIAL 21 UNIT SUBCUT (08:22)
[2025-01-06] MEDS: Potassium Chloride ER 20 MEQ TAB.ER.PRT PO (08:22)
[2025-01-06] MEDS: Empagliflozin 10 MG TABLET PO (08:22)
[2025-01-06] MEDS: Spironolactone 25 MG TABLET PO (08:22)
[2025-01-06] MEDS: Primidone 50 MG TABLET PO ×2 (08:22→21:24)
[2025-01-06] MEDS: Amiodarone HCL 200 MG TABLET 400 MG PO ×2 (08:22→21:24)
[2025-01-06] MEDS: 0.9 % Sodium Chloride Flush 3 ML SYRINGE IVFLUSH ×3 (08:28→21:25)
[2025-01-06 11:33] LABS: Glucose, Whole Blood 266 mg/dL (60-115)
[2025-01-06] MEDS: Insulin Lispro 100 UNIT/ML 3 ML VIAL SUBCUT ×3 (11:35→21:25)
--- NOTE | 2025-01-06 12:26 | PM.PNCARD ---
Subjective Subjective Date of Service: 01/06/25 Principal diagnosis: CHF, atrial fibrillation Interval history: Patient feeling a lot better. His overall he said his leg edema has improved significantly. He also is less short of breath. Atrial fibrillation remains controlled. Although his creatinine has bumped today to 1.63. His Lasix was withheld this morning. His BNP has downtrending Review of Systems Constitutional: Reports no additional constitutional complaints Cardiovascular: Denies lightheadedness, Denies Loss of Consciousness, Denies palpitations and Reports dyspnea on exertion Respiratory: Reports no additional respiratory complaints and Reports dyspnea on exertion Musculoskeletal: Reports no additional musculoskeletal complaints Reports system reviewed and no additional complaints, except as documented Endocrine: Denies palpitations Physical Exam Vital Signs: Last Vital Signs Temp 97.1 F 01/06/25 12:00 Pulse 82 01/06/25 12:00 Resp 18 01/06/25 12:00 BP 99/57 L 01/06/25 12:00 Pulse Ox 94 01/06/25 12:00 O2 Del Method Room Air 01/06/25 12:00 BMI result Body Mass Index 38.1 Const General: cooperative, comfortable, no acute distress, alert and awake Nutritional Appearance: obese Orientation/consciousness: patient oriented x3 Neck Neck: Yes trachea midline, Yes supple and Yes no JVD Resp Effort & Inspection: normal respiratory effort Auscultation: clear to auscultation bilaterally Cardio Rhythm: abnormal rhythm irregularly irregular Heart sounds: S1 normal heart sound present, S2 normal heart sound present, no click, no gallops and no murmurs GI Auscultation: normal bowel sounds Skin General skin exam: no rashes or lesions noted Neuro General: patient oriented x3 and no focal motor deficits Extrem General: No clubbing, No cyanosis and Yes edema (Improved) Objective Labs and Meds 01/03/25 06:26 01/06/25 06:30 Lab results: Laboratory Results - last 24 hr 01/05/25 01/05/25 01/06/25 15:57 20:13 06:30 Sodium 136 Potassium 3.5 Chloride 92 L Carbon Dioxide 30 H Anion Gap 18 BUN 37 H Creatinine 1.62 H Estim Creat Clear Calc 54.1 Estimated GFR 42 POC Glucose 164 H 156 H Random Glucose 140 H Calcium 9.8 Magnesium 2.0 B-Natriuretic Peptide 275 H 01/06/25 01/06/25 07:04 11:27 Sodium Potassium Chloride Carbon Dioxide Anion Gap BUN Creatinine Estim Creat Clear Calc Estimated GFR POC Glucose 144 H 266 H Random Glucose Calcium Magnesium B-Natriuretic Peptide Progress Note: A&P Assessment and plan (1) Acute congestive heart failure: Status: Acute Assessment and Plan: Patient presents with worsening symptoms of heart failure with acute congestive heart failure. Patient has diuresed well. Creatinine is increased question related to over-diuresis versus low blood pressure and reduced renal perfusion. At this point time agree with holding his loop diuretic monitoring his renal function. Continue Jardiance and Aldactone therapy. Continue maintain blood pressure adequately. Hold metoprolol and valsartan therapy. Continue strict intake and output chart and management of blood pressure and heart failure. (2) Persistent atrial fibrillation: Status: Acute Assessment and Plan: Persistent atrial fibrillation most likely cause for his development of heart failure syndrome. Rate control for now with eventually plan for rhythm control. Started on amiodarone therapy with loading dose for 2 weeks which will help with rate control for now. Also continue full oral anticoagulation. Will follow with you Time Spent With Patient Time: Total time managing care of this patient today ____ minutes. Progress Note: Quality Stroke Does the patient have a stroke diagnosis?: No Procedures Date of Service Date of Service: 01/06/25
--- NOTE | 2025-01-06 14:22 | P.PNIM_ITS ---
Subjective Subjective Date of Service: 01/06/25 Interval History: furosemide drip held for hypotension overnight, also SCr up edema improved denies dyspnea Review of Systems Review of Systems: Yes all other systems are reviewed and are negative Physical Exam 2 Vital Signs: Vital Signs: Last Vital Signs Temp 97.1 F 01/06/25 12:00 Pulse 80 01/06/25 14:12 Resp 18 01/06/25 12:00 BP 99/57 L 01/06/25 14:12 Pulse Ox 95 01/06/25 14:12 O2 Del Method Room Air 01/06/25 12:00 BMI result Body Mass Index 38.1 Gen: in no acute distress HEENT: sclera anicteric, moist mucus membranes Neck: supple Lungs: clear to auscultation bilaterally Heart: irregular, rate-controlled, no murmurs Abd: soft, non-tender, non-distended Ext: 2+ bilateral leg edema Skin: warm/well-perfused Neuro: alert and oriented x3, no focal findings Psych: appropriate affect Objective Data Active Medications Acetaminophen (Acetaminophen 325 Mg Tablet) 650 mg PO Q6H PRN PRN Reason: Pain, Mild 1-3,fever,headache Last Admin: 01/05/25 20:08 Dose: 650 mg Documented By: SONJA Amiodarone HCl (Amiodarone Hcl 200 Mg Tablet) 400 mg PO BID COUNT [facility] Last Admin: 01/06/25 08:22 Dose: 400 mg Documented By: KATHRYN Atorvastatin Calcium (Atorvastatin Calcium 80 Mg Tablet) 80 mg PO BEDTIME COUNT [facility] Last Admin: 01/05/25 20:08 Dose: 80 mg Documented By: SONJA Calcium Carbonate (Calcium Carbonate 750 Mg Tab.Chew) 750 mg PO Q4H PRN PRN Reason: Heartburn Dextrose (Dextrose 50 % 25 Gm/50 Ml Syringe) 25 gm IVPUSH Q15M PRN; Protocol PRN Reason: per Hypoglycemia Standing Ord. Empagliflozin (Empagliflozin 10 Mg Tablet) 10 mg PO DAILY COUNT [facility] Last Admin: 01/06/25 08:22 Dose: 10 mg Documented By: KATHRYN Glucose (Glucose Gel 15 Gm Gel..Gram.) 15 gm PO Q15M PRN; Protocol PRN Reason: per Hypoglycemia Standing Ord. Furosemide 200 mg/ Sodium (Chloride) 100 mls @ 2.5 mls/hr IVCONT .Q24H COUNT [facility] Last Infusion: 01/05/25 21:37 Dose: 0 mg/hr, 0 mls/hr Documented By: SONJA Insulin Glargine (Insulin Glargine,Hum.Rec.Anlog 100 Unit/Ml 10 Ml Vial) 21 unit SUBCUT DAILY COUNT [facility] Last Admin: 01/06/25 08:22 Dose: 21 unit Documented By: KATHRYN Insulin Human Lispro (Insulin Lispro 100 Unit/Ml 3 Ml Vial) 0 unit SUBCUT QIDACHS COUNT [facility]CLUD[facility]; Protocol Last Admin: 01/06/25 11:35 Dose: 6 unit Documented By: KATHRYN Magnesium Hydroxide (Milk Of Magnesia 30 Ml Oral.Susp) 30 ml PO DAILY PRN PRN Reason: Constipation Last Admin: 01/05/25 05:54 Dose: 30 ml Documented By: XAVIER Melatonin (Melatonin 3 Mg Tablet) 6 mg PO BEDTIME PRN PRN Reason: Insomnia Last Admin: 01/05/25 20:08 Dose: 6 mg Documented By: SONJA Potassium Chloride (Potassium Chloride Er 20 Meq Tab.Er.Prt) 20 meq PO DAILY COUNT [facility] Last Admin: 01/06/25 08:22 Dose: 20 meq Documented By: KATHRYN Primidone (Primidone 50 Mg Tablet) 50 mg PO BID COUNT [facility] Last Admin: 01/06/25 08:22 Dose: 50 mg Documented By: KATHRYN Rivaroxaban (Rivaroxaban 20 Mg Tablet) 20 mg PO DAILY@1700 [facility] Last Admin: 01/05/25 16:18 Dose: 20 mg Documented By: KATHRYN Sodium Chloride (0.9 % Sodium Chloride Flush 3 Ml Syringe) 3 ml IVFLUSH QSHIFT COUNT [facility] Last Admin: 01/06/25 08:28 Dose: 3 ml Documented By: KATHRYN Spironolactone (Spironolactone 25 Mg Tablet) 25 mg PO DAILY [facility]; Protocol Last Admin: 01/06/25 08:22 Dose: 25 mg Documented By: KATHRYN Labs 01/03/25 06:26 01/06/25 06:30 Labs: Laboratory Results - last 24 hr 01/05/25 01/05/25 01/06/25 15:57 20:13 06:30 Anion Gap 18 Estim Creat Clear Calc 54.1 Estimated GFR 42 POC Glucose 164 H 156 H Random Glucose 140 H Calcium 9.8 Magnesium 2.0 B-Natriuretic Peptide 275 H 01/06/25 01/06/25 07:04 11:27 Anion Gap Estim Creat Clear Calc Estimated GFR POC Glucose 144 H 266 H Random Glucose Calcium Magnesium B-Natriuretic Peptide Assessment and Plan (1) Acute congestive heart failure: Status: Acute Plan d5 for 79yo M with pAF on rivaroxaban, HTN, HLD, DM2, HFpEF, CKD3, and neuropathy presenting with exertional dyspnea for 2-3d, admitted for CHF exacerbation acute-chronic HFpEF - hold furosemide drip; net negative 4L and feels much better - TTE 01/03: 1. Technically limited study due to body habitus 2. Normal LV ejection fraction 55-60% with moderate left ventricular hypertrophy 3. Cardiac valvular Dopplers within normal limits but cardiac valves are poorly visualized 4. Significantly elevated right atrial pressures - continue spironolactone + empagliflozin; stopped bisoprolol + valsartan due to hypotension - Cardiology following AF/RVR - heart rate better controlled now; d/c'ed bisoprolol due to hypotension and started amiodarone load 400 mg bid 01/04-01/18, then 200 mg daily; outpt cardioversion at end of loading - continue rivaroxaban JOHNATHON/CKD3 - possibly overdiuresis vs low-flow state; holding furosemide and will recheck BMP in AM; also holding valsrtan hypoK - repleted HTN - now hypotensive; d/c'ed bisoprolol + valsartan but continue spironolactone hypoNa, mild - d/c'ed HCTZ and Na improved HLD - statin DM2 - basal-bolus insulin VTE ppx - rivaroxaban dispo - home with VNA In my clinical judgment, the patient requires continued inpatient hospitalization for the following reasons: JOHNATHON Total time managing care of this patient today: 40 minutes. Quality Stroke Does the patient have a stroke diagnosis?: No VTE Prior VTE?: No VTE Risk Level:: Medical - moderate - high VTE Device Contraindication: Treatment Not Indicated VTE Drug Contraindication: N/A - Med Ordered
[2025-01-06] MEDS: Rivaroxaban 20 MG TABLET PO (16:49)
[2025-01-06 16:51] LABS: Glucose, Whole Blood 181 mg/dL (60-115)
[2025-01-06] MEDS: Acetaminophen 325 MG TABLET 650 MG PO (16:57)
[2025-01-06 20:24] LABS: Glucose, Whole Blood 182 mg/dL (60-115)
[2025-01-06] MEDS: Atorvastatin Calcium 80 MG TABLET PO (21:24)
[2025-01-06] MEDS: Melatonin 3 MG TABLET 6 MG PO (21:24)
[2025-01-06] MEDS: guaiFEN/Codeine SF 200/20/10ML 10 ML LIQUID 5 ML PO (21:40)
[2025-01-07] VITALS (12 sets, daily range): BP systolic 74–126; BP diastolic 42–61; PULSE 75–91; RESP 14–18; TEMP 36.1–36.7; O2SAT 94–97
[2025-01-07 07:13] LABS: B Type Natriuretic Peptide 255 pg/mL (<100)
[2025-01-07 07:42] LABS: Anion Gap 17 (12-20); Blood Urea Nitrogen 39 mg/dL (9-16); Calcium 9.7 mg/dL (8.4-10.2); Carbon Dioxide 27 mmol/L (22-29); Chloride 92 mmol/L (96-108); Creatinine Clr Calc Pharmacy 53.1; Estimated Glomerular Filt Rate 41; Glucose Random 151 mg/dL (60-115); Potassium 3.7 mmol/L (3.3-5.1); Sodium 132 mmol/L (135-145)
[2025-01-07 07:52] LABS: Glucose, Whole Blood 158 mg/dL (60-115)
[2025-01-07] MEDS: Primidone 50 MG TABLET PO ×2 (07:56→22:03)
[2025-01-07] MEDS: Amiodarone HCL 200 MG TABLET 400 MG PO ×2 (07:56→22:03)
[2025-01-07] MEDS: Potassium Chloride ER 20 MEQ TAB.ER.PRT PO (07:56)
[2025-01-07] MEDS: Empagliflozin 10 MG TABLET PO (07:57)
[2025-01-07] MEDS: Insulin Lispro 100 UNIT/ML 3 ML VIAL SUBCUT ×4 (07:57→22:04)
[2025-01-07] MEDS: Insulin Glargine,Hum.rec.anlog 100 UNIT/ML 10 ML VIAL 21 UNIT SUBCUT (07:57)
[2025-01-07] MEDS: 0.9 % Sodium Chloride 250 ML 125 ML IV ×2 (08:01→10:55)
--- NOTE | 2025-01-07 08:02 | PC.NURSE ---
automated BP 86/53, BP rechecked manually and confirmed to be 74/42. patient reports occasional mild headache of 2/10 pain but denies any current headache or any other symptoms.MD immediately notified 250mL bolus of normal saline ordered all other vitals remain within normal limits
[2025-01-07] MEDS: Acetaminophen 325 MG TABLET 650 MG PO ×2 (10:56→22:07)
[2025-01-07 11:44] LABS: Glucose, Whole Blood 199 mg/dL (60-115)
--- NOTE | 2025-01-07 12:10 | P.PNIM_ITS ---
Subjective Subjective Date of Service: 01/07/25 Interval History: BP as low as 74/42 this AM 80/50 after 250 cc NS, another 250 cc ordered Pt endorses CAMPBELL but no dyspnea or cough Review of Systems Review of Systems: Yes all other systems are reviewed and are negative Physical Exam 2 Vital Signs: Vital Signs: Last Vital Signs Temp 97.4 F 01/07/25 11:38 Pulse 75 01/07/25 11:38 Resp 18 01/07/25 11:38 BP 80/50 L 01/07/25 10:40 Pulse Ox 97 01/07/25 11:38 O2 Del Method Room Air 01/07/25 11:38 BMI result Body Mass Index 38.1 Gen: in no acute distress HEENT: sclera anicteric, moist mucus membranes Neck: supple Lungs: clear to auscultation bilaterally Heart: irregular, rate-controlled, no murmurs Abd: soft, non-tender, non-distended Ext: 2+ bilateral leg edema Skin: warm/well-perfused Neuro: alert and oriented x3, no focal findings Psych: appropriate affect Objective Data Active Medications Acetaminophen (Acetaminophen 325 Mg Tablet) 650 mg PO Q6H PRN PRN Reason: Pain, Mild 1-3,fever,headache Last Admin: 01/07/25 10:56 Dose: 650 mg Documented By: KATHRYN Amiodarone HCl (Amiodarone Hcl 200 Mg Tablet) 400 mg PO BID [facility] Last Admin: 01/07/25 07:56 Dose: 400 mg Documented By: KATHRYN Comments: discussed administration with provider prior to giving med dilshad to low BPs. Atorvastatin Calcium (Atorvastatin Calcium 80 Mg Tablet) 80 mg PO BEDTIME [facility] Last Admin: 01/06/25 21:24 Dose: 80 mg Documented By: ALCIDES Calcium Carbonate (Calcium Carbonate 750 Mg Tab.Chew) 750 mg PO Q4H PRN PRN Reason: Heartburn Dextrose (Dextrose 50 % 25 Gm/50 Ml Syringe) 25 gm IVPUSH Q15M PRN; Protocol PRN Reason: per Hypoglycemia Standing Ord. Empagliflozin (Empagliflozin 10 Mg Tablet) 10 mg PO DAILY [facility] Last Admin: 01/07/25 07:57 Dose: 10 mg Documented By: KATHRYN Glucose (Glucose Gel 15 Gm Gel..Gram.) 15 gm PO Q15M PRN; Protocol PRN Reason: per Hypoglycemia Standing Ord. Guaifenesin/Codeine Phosphate (Guaifen/Codeine Sf 200/20/10ml 10 Ml Liquid) 5 ml PO Q6H PRN PRN Reason: Cough Last Admin: 01/06/25 21:40 Dose: 5 ml Documented By: ALCIDES Furosemide 200 mg/ Sodium (Chloride) 100 mls @ 2.5 mls/hr IVCONT .Q24H [facility] Last Infusion: 01/05/25 21:37 Dose: 0 mg/hr, 0 mls/hr Documented By: SONJA Sodium Chloride (Ns) 250 mls @ 125 mls/hr IV ONCE [facility] Last Infusion: 01/07/25 10:57 Dose: Infused Documented By: KATHRYN Sodium Chloride (Ns) 250 mls @ 125 mls/hr IV .Q2H [facility] Stop: 01/07/25 13:14 Last Admin: 01/07/25 10:55 Dose: 125 mls/hr Documented By: KATHRYN Insulin Glargine (Insulin Glargine,Hum.Rec.Anlog 100 Unit/Ml 10 Ml Vial) 21 unit SUBCUT DAILY [facility] Last Admin: 01/07/25 07:57 Dose: 21 unit Documented By: KATHRYN Insulin Human Lispro (Insulin Lispro 100 Unit/Ml 3 Ml Vial) 0 unit SUBCUT QIDACHS [facility]; Protocol Last Admin: 01/07/25 11:58 Dose: 2 unit Documented By: KATHRYN Magnesium Hydroxide (Milk Of Magnesia 30 Ml Oral.Susp) 30 ml PO DAILY PRN PRN Reason: Constipation Last Admin: 01/05/25 05:54 Dose: 30 ml Documented By: XAVIER Melatonin (Melatonin 3 Mg Tablet) 6 mg PO BEDTIME PRN PRN Reason: Insomnia Last Admin: 01/06/25 21:24 Dose: 6 mg Documented By: ALCIDES Potassium Chloride (Potassium Chloride Er 20 Meq Tab.Er.Prt) 20 meq PO DAILY [facility] Last Admin: 01/07/25 07:56 Dose: 20 meq Documented By: KATHRYN Primidone (Primidone 50 Mg Tablet) 50 mg PO BID [facility] Last Admin: 01/07/25 07:56 Dose: 50 mg Documented By: KATHRYN Rivaroxaban (Rivaroxaban 20 Mg Tablet) 20 mg PO DAILY@1700 [facility] Last Admin: 01/06/25 16:49 Dose: 20 mg Documented By: KATHRYN Sodium Chloride (0.9 % Sodium Chloride Flush 3 Ml Syringe) 3 ml IVFLUSH QSHIFT [facility] Last Admin: 01/07/25 08:40 Dose: Not Given Documented By: KATHRYN Non-Admin Reason: IV Running Spironolactone (Spironolactone 25 Mg Tablet) 25 mg PO DAILY [facility]; Protocol Last Admin: 01/07/25 08:40 Dose: Not Given Documented By: KATHRYN Non-Admin Reason: bp too low Labs 01/03/25 06:26 01/07/25 06:14 Labs: Laboratory Results - last 24 hr 01/06/25 01/06/25 01/07/25 16:43 20:20 06:14 Anion Gap 17 Estim Creat Clear Calc 53.1 Estimated GFR 41 POC Glucose 181 H 182 H Random Glucose 151 H Calcium 9.7 Magnesium 2.0 B-Natriuretic Peptide 01/07/25 01/07/25 01/07/25 06:15 07:48 11:34 Anion Gap Estim Creat Clear Calc Estimated GFR POC Glucose 158 H 199 H Random Glucose Calcium Magnesium B-Natriuretic Peptide 255 H Microbiology Microbiology Results: Microbiology 01/01/25 19:48 Blood Culture - Final Blood - Venous No growth after 5 days. 01/01/25 19:48 Blood Culture - Final Blood - Venous No growth after 5 days. Assessment and Plan (1) Acute congestive heart failure: Status: Acute Plan d6 for 79yo M with pAF on rivaroxaban, HTN, HLD, DM2, HFpEF, CKD3, and neuropathy presenting with exertional dyspnea for 2-3d, admitted for CHF exacerbation acute-chronic HFpEF - held furosemide drip since 01/06; net negative 3L - TTE 01/03: 1. Technically limited study due to body habitus 2. Normal LV ejection fraction 55-60% with moderate left ventricular hypertrophy 3. Cardiac valvular Dopplers within normal limits but cardiac valves are poorly visualized 4. Significantly elevated right atrial pressures - continue spironolactone + empagliflozin; stopped bisoprolol + valsartan due to hypotension; spironolactone and empagliflozin on hold and giving another 250 mL of IV NS - Cardiology following AF/RVR - heart rate better controlled now; d/c'ed bisoprolol due to hypotension and started amiodarone load 400 mg bid 01/04-01/18, then 200 mg daily; outpt cardioversion at end of loading - continue rivaroxaban JOHNATHON/CKD3 - possibly overdiuresis vs low-flow state; holding furosemide and valsartan; continue to check SCr hypoK - repleted HTN - now hypotensive; d/c'ed bisoprolol + valsartan and held spironolactone hypoNa, mild - d/c'ed HCTZ and Na improved HLD - statin DM2 - basal-bolus insulin VTE ppx - rivaroxaban dispo - home with VNA In my clinical judgment, the patient requires continued inpatient hospitalization for the following reasons: hypotension + JOHNATHON Total time managing care of this patient today: 40 minutes. Quality Stroke Does the patient have a stroke diagnosis?: No VTE Prior VTE?: No VTE Risk Level:: Medical - moderate - high VTE Device Contraindication: Treatment Not Indicated VTE Drug Contraindication: N/A - Med Ordered
[2025-01-07] MEDS: 0.9 % Sodium Chloride 250 ML IV (13:50)
--- NOTE | 2025-01-07 15:41 | PM.PNCARD ---
Subjective Subjective Date of Service: 01/07/25 Principal diagnosis: CHF, atrial fibrillation Interval history: Patient became hypotensive this morning with a systolic blood pressure in the 70s. Remained in the 80s after fluid bolus. No obvious symptoms reported of lightheadedness. No palpitations. All his medications has been withheld. Review of Systems Constitutional: Reports no additional constitutional complaints Cardiovascular: Reports no additional cardiovascular complaints Respiratory: Reports no additional respiratory complaints Genitourinary: Reports no additional male genitourinary complaints Skin/Breast: Reports system reviewed and no additional complaints, except as docu Physical Exam Vital Signs: Last Vital Signs Temp 97.4 F 01/07/25 11:38 Pulse 86 01/07/25 15:05 Resp 18 01/07/25 11:38 BP 90/50 L 01/07/25 15:05 Pulse Ox 97 01/07/25 11:38 O2 Del Method Room Air 01/07/25 11:38 BMI result Body Mass Index 38.1 Const General: cooperative, comfortable, no acute distress, alert and awake Nutritional Appearance: obese Orientation/consciousness: patient oriented x3 Neck Neck: Yes trachea midline, Yes supple and Yes no JVD Resp Effort & Inspection: normal respiratory effort Auscultation: clear to auscultation bilaterally Cardio Rhythm: abnormal rhythm irregularly irregular Heart sounds: S1 normal heart sound present, S2 normal heart sound present, no click, no gallops and no murmurs GI Auscultation: normal bowel sounds Skin General skin exam: no rashes or lesions noted Neuro General: patient oriented x3 and no focal motor deficits Extrem General: No clubbing, No cyanosis and Yes edema (Improved) Objective Labs and Meds 01/03/25 06:26 01/07/25 06:14 Lab results: Laboratory Results - last 24 hr 01/06/25 01/06/25 01/07/25 16:43 20:20 06:14 Sodium 132 L Potassium 3.7 Chloride 92 L Carbon Dioxide 27 Anion Gap 17 BUN 39 H Creatinine 1.65 H Estim Creat Clear Calc 53.1 Estimated GFR 41 POC Glucose 181 H 182 H Random Glucose 151 H Calcium 9.7 Magnesium 2.0 B-Natriuretic Peptide 01/07/25 01/07/25 01/07/25 06:15 07:48 11:34 Sodium Potassium Chloride Carbon Dioxide Anion Gap BUN Creatinine Estim Creat Clear Calc Estimated GFR POC Glucose 158 H 199 H Random Glucose Calcium Magnesium B-Natriuretic Peptide 255 H Progress Note: A&P Assessment and plan (1) Hypotension: Status: Acute Assessment and Plan: Hypertension developed this morning. Most likely due to over diuresis and medications. Please hold all medications including Jardiance and spironolactone. Hold off on diuretics. Gentle hydration. Monitor blood pressure closely. Once blood pressure has been reestablish and kidney functions have downtrending will pursue alternative therapy. (2) Acute congestive heart failure: Status: Acute Assessment and Plan: Heart failure with no obvious symptoms at current point time with persistent leg edema most likely related to lymphedema. At this point time will hold off on diuretic regimen. Will follow clinically. Pursue rhythm control eventually. Question infiltrative disorder such as amyloidosis needs to be considered. (3) Persistent atrial fibrillation: Status: Acute Assessment and Plan: Persistent atrial fibrillation with hemodynamic compromise. Will follow closely. Will pursue rhythm control approach, started on amiodarone which will be loaded for 2 weeks followed by cardioversion. Continue full oral anticoagulation for now Time Spent With Patient Time: Total time managing care of this patient today ____ minutes. Progress Note: Quality Stroke Does the patient have a stroke diagnosis?: No Procedures Date of Service Date of Service: 01/07/25
--- NOTE | 2025-01-07 16:18 | MHC.CM.PN ---
EMR reviewed and per MD rounds, pt is not medically cleared for discharge due to management of hypotension and JOHNATHON.
[2025-01-07 16:31] LABS: Glucose, Whole Blood 229 mg/dL (60-115)
[2025-01-07] MEDS: Rivaroxaban 20 MG TABLET PO (16:52)
[2025-01-07] MEDS: 0.9 % Sodium Chloride Flush 3 ML SYRINGE IVFLUSH ×2 (16:52→22:04)
[2025-01-07 20:44] LABS: Glucose, Whole Blood 202 mg/dL (60-115)
[2025-01-07] MEDS: Atorvastatin Calcium 80 MG TABLET PO (22:03)
[2025-01-07] MEDS: Melatonin 3 MG TABLET 6 MG PO (22:08)
[2025-01-08] VITALS (8 sets, daily range): BP systolic 99–130; BP diastolic 53–70; PULSE 74–119; RESP 16–18; TEMP 36.3–37.2; O2SAT 91–96
[2025-01-08] MEDS: Acetaminophen 325 MG TABLET 650 MG PO ×3 (06:13→21:44)
[2025-01-08 07:36] LABS: Anion Gap 17 (12-20); Blood Urea Nitrogen 37 mg/dL (9-16); Calcium 9.4 mg/dL (8.4-10.2); Carbon Dioxide 27 mmol/L (22-29); Chloride 92 mmol/L (96-108); Creatinine Clr Calc Pharmacy 59.7; Estimated Glomerular Filt Rate 46; Glucose Random 143 mg/dL (60-115); Magnesium 2.3 mg/dL (1.6-2.6); Potassium 3.7 mmol/L (3.3-5.1); Sodium 132 mmol/L (135-145)
[2025-01-08 07:45] LABS: B Type Natriuretic Peptide 295 pg/mL (<100)
[2025-01-08 08:13] LABS: Glucose, Whole Blood 185 mg/dL (60-115)
[2025-01-08] MEDS: Potassium Chloride ER 20 MEQ TAB.ER.PRT PO (09:15)
[2025-01-08] MEDS: Amiodarone HCL 200 MG TABLET 400 MG PO ×2 (09:15→21:43)
[2025-01-08] MEDS: Insulin Glargine,Hum.rec.anlog 100 UNIT/ML 10 ML VIAL 21 UNIT SUBCUT (09:15)
[2025-01-08] MEDS: Primidone 50 MG TABLET PO ×2 (09:15→21:43)
[2025-01-08] MEDS: Insulin Lispro 100 UNIT/ML 3 ML VIAL SUBCUT ×4 (09:16→21:44)
[2025-01-08] MEDS: 0.9 % Sodium Chloride Flush 3 ML SYRINGE IVFLUSH ×3 (09:18→21:44)
[2025-01-08 11:31] LABS: Glucose, Whole Blood 245 mg/dL (60-115)
--- NOTE | 2025-01-08 13:32 | PM.PNCARD ---
Subjective Subjective Date of Service: 01/08/25 Principal diagnosis: CHF, atrial fibrillation Interval history: No lightheadedness. Blood pressure is improved. Still had negative balance. Creatinine has improved. Remains in AFib with controlled response Review of Systems Constitutional: Reports weakness Cardiovascular: Denies rapid heart rate, Denies lightheadedness, Denies Loss of Consciousness, Denies palpitations and Reports dyspnea on exertion Respiratory: Reports dyspnea on exertion Reports weakness Endocrine: Denies palpitations Physical Exam Vital Signs: Last Vital Signs Temp 97.3 F 01/08/25 12:00 Pulse 109 H 01/08/25 12:00 Resp 18 01/08/25 12:00 BP 130/62 01/08/25 12:00 Pulse Ox 91 L 01/08/25 12:00 O2 Del Method Room Air 01/08/25 12:00 BMI result Body Mass Index 38.1 Const General: cooperative, comfortable, no acute distress, alert and awake Nutritional Appearance: obese Orientation/consciousness: patient oriented x3 Neck Neck: Yes trachea midline, Yes supple and Yes no JVD Resp Effort & Inspection: normal respiratory effort Auscultation: clear to auscultation bilaterally Cardio Rhythm: abnormal rhythm irregularly irregular Heart sounds: S1 normal heart sound present, S2 normal heart sound present, no click, no gallops and no murmurs GI Auscultation: normal bowel sounds Skin General skin exam: no rashes or lesions noted Neuro General: patient oriented x3 and no focal motor deficits Extrem General: No clubbing, No cyanosis and Yes edema (Improved) Objective Labs and Meds 01/03/25 06:26 01/08/25 06:28 Lab results: Laboratory Results - last 24 hr 01/07/25 01/07/25 01/08/25 16:23 20:41 06:28 Sodium 132 L Potassium 3.7 Chloride 92 L Carbon Dioxide 27 Anion Gap 17 BUN 37 H Creatinine 1.47 H Estim Creat Clear Calc 59.7 Estimated GFR 46 POC Glucose 229 H 202 H Random Glucose 143 H Calcium 9.4 Magnesium 2.3 B-Natriuretic Peptide 295 H 01/08/25 01/08/25 08:01 11:03 Sodium Potassium Chloride Carbon Dioxide Anion Gap BUN Creatinine Estim Creat Clear Calc Estimated GFR POC Glucose 185 H 245 H Random Glucose Calcium Magnesium B-Natriuretic Peptide Progress Note: A&P Assessment and plan (1) Hypotension: Status: Acute Assessment and Plan: Hypotension which has resolved now after holding on medications. Creatinine has improved. Continue monitor blood pressure closely. Advise adequate oral hydration to about 1200 cc. Continue to hold all medications. (2) Acute congestive heart failure: Status: Acute Assessment and Plan: Heart failure with persistent atrial fibrillation. High likelihood of underlying infiltrative cardiac disorder such as amyloidosis given his age and multiple risk factors. Will need workup as outpatient. Has not tolerated other medications with hypotension which is occluded towards diagnose of amyloidosis as well. Will resume Bumex 2 mg daily. Strict intake and output charts maintained. Eventually pursue rhythm control approach. Continue monitor renal function. (3) Persistent atrial fibrillation: Status: Acute Assessment and Plan: Continue with amiodarone loading for 2 weeks followed by 200 mg daily followed by cardioversion. Continue full oral anticoagulation. Will follow with you Time Spent With Patient Time: Total time managing care of this patient today ____ minutes. Progress Note: Quality Stroke Does the patient have a stroke diagnosis?: No Procedures Date of Service Date of Service: 01/08/25
--- NOTE | 2025-01-08 13:47 | P.PNIM_ITS ---
Subjective Subjective Date of Service: 01/08/25 Interval History: BP improved and not orthostatic no dyspnea no chest pain Review of Systems Review of Systems: Yes all other systems are reviewed and are negative Physical Exam 2 Vital Signs: Vital Signs: Last Vital Signs Temp 97.3 F 01/08/25 12:00 Pulse 109 H 01/08/25 12:00 Resp 18 01/08/25 12:00 BP 130/62 01/08/25 12:00 Pulse Ox 91 L 01/08/25 12:00 O2 Del Method Room Air 01/08/25 12:00 BMI result Body Mass Index 38.1 Gen: in no acute distress HEENT: sclera anicteric, moist mucus membranes Neck: supple Lungs: clear to auscultation bilaterally Heart: irregular, rate-controlled, no murmurs Abd: soft, non-tender, non-distended Ext: 2+ bilateral leg edema Skin: warm/well-perfused Neuro: alert and oriented x3, no focal findings Psych: appropriate affect Objective Data Active Medications Acetaminophen (Acetaminophen 325 Mg Tablet) 650 mg PO Q6H PRN PRN Reason: Pain, Mild 1-3,fever,headache Last Admin: 01/08/25 06:13 Dose: 650 mg Documented By: XAVIER Amiodarone HCl (Amiodarone Hcl 200 Mg Tablet) 400 mg PO BID [facility] Last Admin: 01/08/25 09:15 Dose: 400 mg Documented By: KARENA Atorvastatin Calcium (Atorvastatin Calcium 80 Mg Tablet) 80 mg PO BEDTIME [facility] Last Admin: 01/07/25 22:03 Dose: 80 mg Documented By: XAVIER Calcium Carbonate (Calcium Carbonate 750 Mg Tab.Chew) 750 mg PO Q4H PRN PRN Reason: Heartburn Dextrose (Dextrose 50 % 25 Gm/50 Ml Syringe) 25 gm IVPUSH Q15M PRN; Protocol PRN Reason: per Hypoglycemia Standing Ord. Empagliflozin (Empagliflozin 10 Mg Tablet) 10 mg PO DAILY [facility] Last Admin: 01/07/25 07:57 Dose: 10 mg Documented By: KATHRYN Glucose (Glucose Gel 15 Gm Gel..Gram.) 15 gm PO Q15M PRN; Protocol PRN Reason: per Hypoglycemia Standing Ord. Guaifenesin/Codeine Phosphate (Guaifen/Codeine Sf 200/20/10ml 10 Ml Liquid) 5 ml PO Q6H PRN PRN Reason: Cough Last Admin: 01/06/25 21:40 Dose: 5 ml Documented By: ALCIDES Furosemide 200 mg/ Sodium (Chloride) 100 mls @ 2.5 mls/hr IVCONT .Q24H [facility] Last Infusion: 01/08/25 10:05 Dose: Infused Documented By: KARENA Sodium Chloride (Ns) 250 mls @ 125 mls/hr IV ONCE [facility] Last Infusion: 01/07/25 10:57 Dose: Infused Documented By: KATHRYN Insulin Glargine (Insulin Glargine,Hum.Rec.Anlog 100 Unit/Ml 10 Ml Vial) 21 unit SUBCUT DAILY [facility] Last Admin: 01/08/25 09:15 Dose: 21 unit Documented By: KARENA Insulin Human Lispro (Insulin Lispro 100 Unit/Ml 3 Ml Vial) 0 unit SUBCUT QIDACHS [facility]; Protocol Last Admin: 01/08/25 11:38 Dose: 4 unit Documented By: KARENA Magnesium Hydroxide (Milk Of Magnesia 30 Ml Oral.Susp) 30 ml PO DAILY PRN PRN Reason: Constipation Last Admin: 01/05/25 05:54 Dose: 30 ml Documented By: XAVIER Melatonin (Melatonin 3 Mg Tablet) 6 mg PO BEDTIME PRN PRN Reason: Insomnia Last Admin: 01/07/25 22:08 Dose: 6 mg Documented By: XAVIER Potassium Chloride (Potassium Chloride Er 20 Meq Tab.Er.Prt) 20 meq PO DAILY [facility] Last Admin: 01/08/25 09:15 Dose: 20 meq Documented By: KARENA Primidone (Primidone 50 Mg Tablet) 50 mg PO BID [facility] Last Admin: 01/08/25 09:15 Dose: 50 mg Documented By: KARENA Rivaroxaban (Rivaroxaban 20 Mg Tablet) 20 mg PO DAILY@1700 [facility] Last Admin: 01/07/25 16:52 Dose: 20 mg Documented By: LUZMA Sodium Chloride (0.9 % Sodium Chloride Flush 3 Ml Syringe) 3 ml IVFLUSH QSHIFT [facility] Last Admin: 01/08/25 09:18 Dose: 3 ml Documented By: KARENA Spironolactone (Spironolactone 25 Mg Tablet) 25 mg PO DAILY [facility]; Protocol Last Admin: 01/07/25 08:40 Dose: Not Given Documented By: KATHRYN Non-Admin Reason: bp too low Labs 01/03/25 06:26 01/08/25 06:28 Labs: Laboratory Results - last 24 hr 01/07/25 01/07/25 01/08/25 16:23 20:41 06:28 Anion Gap 17 Estim Creat Clear Calc 59.7 Estimated GFR 46 POC Glucose 229 H 202 H Random Glucose 143 H Calcium 9.4 Magnesium 2.3 B-Natriuretic Peptide 295 H 01/08/25 01/08/25 08:01 11:03 Anion Gap Estim Creat Clear Calc Estimated GFR POC Glucose 185 H 245 H Random Glucose Calcium Magnesium B-Natriuretic Peptide Assessment and Plan (1) Acute congestive heart failure: Status: Acute Plan d7 for 79yo M with pAF on rivaroxaban, HTN, HLD, DM2, HFpEF, CKD3, and neuropathy presenting with exertional dyspnea for 2-3d, admitted for CHF exacerbation acute-chronic HFpEF - held furosemide drip since 01/06; net negative 3.5L. Start bumetanide 2 mg PO daily now. - TTE 01/03: 1. Technically limited study due to body habitus 2. Normal LV ejection fraction 55-60% with moderate left ventricular hypertrophy 3. Cardiac valvular Dopplers within normal limits but cardiac valves are poorly visualized 4. Significantly elevated right atrial pressures - BP did not tolerate other medications [spironolactone, empagliflozin, valsartan, bisoprolol]. Outpt Cardiology f/u for amyloidosis workup AF/RVR - heart rate better controlled now; d/c'ed bisoprolol due to hypotension and started amiodarone load 400 mg bid 01/04-01/18, then 200 mg daily; outpt cardioversion at end of loading - continue rivaroxaban JOHNATHON/CKD3 - possibly overdiuresis vs low-flow state; holding furosemide and valsartan; continue to check SCr which is improved today hypoK - repleted HTN - now hypotensive; d/c'ed meds as above and now on only bumetanide hypoNa, mild - d/c'ed HCTZ and Na improved HLD - statin DM2 - basal-bolus insulin VTE ppx - rivaroxaban dispo - home with VNA In my clinical judgment, the patient requires continued inpatient hospitalization for the following reasons: JOHNATHON Total time managing care of this patient today: 40 minutes. Quality Stroke Does the patient have a stroke diagnosis?: No VTE Prior VTE?: No VTE Risk Level:: Medical - moderate - high VTE Device Contraindication: Treatment Not Indicated VTE Drug Contraindication: N/A - Med Ordered
[2025-01-08] MEDS: Bumetanide 1 MG TABLET 2 MG PO (15:06)
[2025-01-08 16:33] LABS: Glucose, Whole Blood 195 mg/dL (60-115)
[2025-01-08] MEDS: Rivaroxaban 20 MG TABLET PO (16:36)
[2025-01-08 21:32] LABS: Glucose, Whole Blood 195 mg/dL (60-115)
[2025-01-08] MEDS: Atorvastatin Calcium 80 MG TABLET PO (21:43)
[2025-01-08] MEDS: Melatonin 3 MG TABLET 6 MG PO (21:45)
[2025-01-09] VITALS: BP 110/75; PULSE 85; RESP 16; TEMP 37; O2SAT 95
[2025-01-09 07:42] LABS: Anion Gap 18 (12-20); Blood Urea Nitrogen 36 mg/dL (9-16); Calcium 9.7 mg/dL (8.4-10.2); Carbon Dioxide 27 mmol/L (22-29); Chloride 92 mmol/L (96-108); Creatinine Clr Calc Pharmacy 52.5; Estimated Glomerular Filt Rate 40; Glucose Random 156 mg/dL (60-115); Magnesium 2.3 mg/dL (1.6-2.6); Sodium 133 mmol/L (135-145)
[2025-01-09 07:49] VITALS: BP 111/73
[2025-01-09 07:49] LABS: B Type Natriuretic Peptide 171 pg/mL (<100)
[2025-01-09] MEDS: Bumetanide 1 MG TABLET 2 MG PO (07:49)
[2025-01-09 07:50] LABS: Glucose, Whole Blood 164 mg/dL (60-115)
[2025-01-09] MEDS: Acetaminophen 325 MG TABLET 650 MG PO ×2 (07:50→21:47)
[2025-01-09] MEDS: Amiodarone HCL 200 MG TABLET 400 MG PO ×2 (07:50→21:48)
[2025-01-09] MEDS: Potassium Chloride ER 20 MEQ TAB.ER.PRT PO (07:50)
[2025-01-09] MEDS: Primidone 50 MG TABLET PO ×2 (07:50→21:48)
[2025-01-09] MEDS: Insulin Lispro 100 UNIT/ML 3 ML VIAL SUBCUT ×4 (07:50→21:48)
[2025-01-09] MEDS: 0.9 % Sodium Chloride Flush 3 ML SYRINGE IVFLUSH ×3 (07:51→21:49)
[2025-01-09] MEDS: Insulin Glargine,Hum.rec.anlog 100 UNIT/ML 10 ML VIAL 21 UNIT SUBCUT (07:51)
[2025-01-09 08:00] VITALS: BP 105/65; PULSE 95; RESP 18; TEMP 36.1; O2SAT 100
--- NOTE | 2025-01-09 10:59 | P.PNIM_ITS ---
Subjective Subjective Date of Service: 01/09/25 Interval History: BP improved but SCr slightly worse No headache No lightheadedness Dyspnea improved Review of Systems Review of Systems: Yes all other systems are reviewed and are negative Physical Exam 2 Vital Signs: Vital Signs: Last Vital Signs Temp 97.0 F 01/09/25 08:00 Pulse 95 01/09/25 08:00 Resp 18 01/09/25 08:00 BP 105/65 01/09/25 08:00 Pulse Ox 100 01/09/25 08:00 O2 Del Method Room Air 01/09/25 00:00 BMI result Body Mass Index 38.1 Gen: in no acute distress HEENT: sclera anicteric, moist mucus membranes Neck: supple Lungs: clear to auscultation bilaterally Heart: irregular, rate-controlled, no murmurs Abd: soft, non-tender, non-distended Ext: 2+ bilateral leg edema Skin: warm/well-perfused Neuro: alert and oriented x3, no focal findings Psych: appropriate affect Objective Data Active Medications Acetaminophen (Acetaminophen 325 Mg Tablet) 650 mg PO Q6H PRN PRN Reason: Pain, Mild 1-3,fever,headache Last Admin: 01/09/25 07:50 Dose: 650 mg Documented By: KARENA Amiodarone HCl (Amiodarone Hcl 200 Mg Tablet) 400 mg PO BID [facility] Last Admin: 01/09/25 07:50 Dose: 400 mg Documented By: KARENA Atorvastatin Calcium (Atorvastatin Calcium 80 Mg Tablet) 80 mg PO BEDTIME [facility] Last Admin: 01/08/25 21:43 Dose: 80 mg Documented By: XAVIER Bumetanide (Bumetanide 1 Mg Tablet) 1 mg PO DAILY [facility]; Protocol Calcium Carbonate (Calcium Carbonate 750 Mg Tab.Chew) 750 mg PO Q4H PRN PRN Reason: Heartburn Dextrose (Dextrose 50 % 25 Gm/50 Ml Syringe) 25 gm IVPUSH Q15M PRN; Protocol PRN Reason: per Hypoglycemia Standing Ord. Empagliflozin (Empagliflozin 10 Mg Tablet) 10 mg PO DAILY [facility] Last Admin: 01/07/25 07:57 Dose: 10 mg Documented By: KATHRYN Glucose (Glucose Gel 15 Gm Gel..Gram.) 15 gm PO Q15M PRN; Protocol PRN Reason: per Hypoglycemia Standing Ord. Guaifenesin/Codeine Phosphate (Guaifen/Codeine Sf 200/20/10ml 10 Ml Liquid) 5 ml PO Q6H PRN PRN Reason: Cough Last Admin: 01/06/25 21:40 Dose: 5 ml Documented By: ALCIDES Furosemide 200 mg/ Sodium (Chloride) 100 mls @ 2.5 mls/hr IVCONT .Q24H [facility] Last Infusion: 01/08/25 10:05 Dose: Infused Documented By: KARENA Sodium Chloride (Ns) 250 mls @ 125 mls/hr IV ONCE [facility] Last Infusion: 01/07/25 10:57 Dose: Infused Documented By: KATHRYN Insulin Glargine (Insulin Glargine,Hum.Rec.Anlog 100 Unit/Ml 10 Ml Vial) 21 unit SUBCUT DAILY [facility] Last Admin: 01/09/25 07:51 Dose: 21 unit Documented By: KARENA Insulin Human Lispro (Insulin Lispro 100 Unit/Ml 3 Ml Vial) 0 unit SUBCUT QIDACHS [facility]; Protocol Last Admin: 01/09/25 07:50 Dose: 2 unit Documented By: KARENA Magnesium Hydroxide (Milk Of Magnesia 30 Ml Oral.Susp) 30 ml PO DAILY PRN PRN Reason: Constipation Last Admin: 01/05/25 05:54 Dose: 30 ml Documented By: XAVIER Melatonin (Melatonin 3 Mg Tablet) 6 mg PO BEDTIME PRN PRN Reason: Insomnia Last Admin: 01/08/25 21:45 Dose: 6 mg Documented By: XAVIER Potassium Chloride (Potassium Chloride Er 20 Meq Tab.Er.Prt) 20 meq PO DAILY [facility] Last Admin: 01/09/25 07:50 Dose: 20 meq Documented By: KARENA Primidone (Primidone 50 Mg Tablet) 50 mg PO BID [facility] Last Admin: 01/09/25 07:50 Dose: 50 mg Documented By: KARENA Rivaroxaban (Rivaroxaban 20 Mg Tablet) 20 mg PO DAILY@1700 [facility] Last Admin: 01/08/25 16:36 Dose: 20 mg Documented By: KARENA Sodium Chloride (0.9 % Sodium Chloride Flush 3 Ml Syringe) 3 ml IVFLUSH QSHIFT [facility] Last Admin: 01/09/25 07:51 Dose: 3 ml Documented By: KARENA Spironolactone (Spironolactone 25 Mg Tablet) 25 mg PO DAILY [facility]; Protocol Last Admin: 01/07/25 08:40 Dose: Not Given Documented By: KATHRYN Non-Admin Reason: bp too low Labs 01/03/25 06:26 01/09/25 07:10 Labs: Laboratory Results - last 24 hr 01/08/25 01/08/25 01/08/25 11:03 16:29 21:28 Anion Gap Estim Creat Clear Calc Estimated GFR POC Glucose 245 H 195 H 195 H Random Glucose Calcium Magnesium B-Natriuretic Peptide 01/09/25 01/09/25 07:10 07:46 Anion Gap 18 Estim Creat Clear Calc 52.5 Estimated GFR 40 POC Glucose 164 H Random Glucose 156 H Calcium 9.7 Magnesium 2.3 B-Natriuretic Peptide 171 H Assessment and Plan (1) Acute congestive heart failure: Status: Acute Plan d8for 79yo M with pAF on rivaroxaban, HTN, HLD, DM2, HFpEF, CKD3, and neuropathy presenting with exertional dyspnea for 2-3d, admitted for CHF exacerbation acute-chronic HFpEF - held furosemide drip since 01/06 and actually had to get 750 mL of NS IV due to hypotension; net negative 5L this admission. Started bumetanide 2 mg yesterday; reduce to 1 mg daily today given JOHNATHON - TTE 01/03: 1. Technically limited study due to body habitus 2. Normal LV ejection fraction 55-60% with moderate left ventricular hypertrophy 3. Cardiac valvular Dopplers within normal limits but cardiac valves are poorly visualized 4. Significantly elevated right atrial pressures - BP did not tolerate other medications [spironolactone, empagliflozin, valsartan, bisoprolol]. Outpt Cardiology f/u for amyloidosis workup. AF/RVR - heart rate better controlled now; d/c'ed bisoprolol due to hypotension and started amiodarone load 400 mg bid 01/04-01/18, then 200 mg daily 01/19-; outpt cardioversion at end of loading - continue rivaroxaban JOHNATHON/CKD3 - held meds as above; reduce bumetanide dose as above; recheck BMP in AM hypoK - repleted HTN - d/c'ed meds as above and now on only bumetanide due to hypotension hypoNa, mild - d/c'ed HCTZ and Na improved HLD - statin DM2 - basal-bolus insulin VTE ppx - rivaroxaban dispo - home with VNA In my clinical judgment, the patient requires continued inpatient hospitalization for the following reasons: JOHNATHON Total time managing care of this patient today: 40 minutes. Quality Stroke Does the patient have a stroke diagnosis?: No VTE Prior VTE?: No VTE Risk Level:: Medical - moderate - high VTE Device Contraindication: Treatment Not Indicated VTE Drug Contraindication: N/A - Med Ordered
[2025-01-09 11:14] LABS: Glucose, Whole Blood 277 mg/dL (60-115)
--- NOTE | 2025-01-09 13:23 | PM.PNCARD ---
Subjective Subjective Date of Service: 01/09/25 Principal diagnosis: CHF, atrial fibrillation Interval history: Patient's blood pressures remained stable. Was started on Bumex 2 mg yesterday and his creatinine is worse slightly. He has no cardiac symptoms. Feels weak Review of Systems Constitutional: Reports lethargy and Reports weakness Eyes: Reports no additional eye complaints Cardiovascular: Reports no additional cardiovascular complaints Reports weakness Physical Exam Vital Signs: Last Vital Signs Temp 97.0 F 01/09/25 08:00 Pulse 95 01/09/25 08:00 Resp 18 01/09/25 08:00 BP 105/65 01/09/25 08:00 Pulse Ox 100 01/09/25 08:00 O2 Del Method Room Air 01/09/25 00:00 BMI result Body Mass Index 38.1 Const General: cooperative, comfortable, no acute distress, alert and awake Nutritional Appearance: obese Orientation/consciousness: patient oriented x3 Neck Neck: Yes trachea midline, Yes supple and Yes no JVD Resp Effort & Inspection: normal respiratory effort Auscultation: clear to auscultation bilaterally Cardio Rhythm: abnormal rhythm irregularly irregular Heart sounds: S1 normal heart sound present, S2 normal heart sound present, no click, no gallops and no murmurs GI Auscultation: normal bowel sounds Skin General skin exam: no rashes or lesions noted Neuro General: patient oriented x3 and no focal motor deficits Extrem General: No clubbing, No cyanosis and Yes edema (Improved) Objective Labs and Meds 01/03/25 06:26 01/09/25 07:10 Lab results: Laboratory Results - last 24 hr 01/08/25 01/08/25 01/09/25 16:29 21:28 07:10 Sodium 133 L Potassium 4.0 Chloride 92 L Carbon Dioxide 27 Anion Gap 18 BUN 36 H Creatinine 1.67 H Estim Creat Clear Calc 52.5 Estimated GFR 40 POC Glucose 195 H 195 H Random Glucose 156 H Calcium 9.7 Magnesium 2.3 B-Natriuretic Peptide 171 H 01/09/25 01/09/25 07:46 11:07 Sodium Potassium Chloride Carbon Dioxide Anion Gap BUN Creatinine Estim Creat Clear Calc Estimated GFR POC Glucose 164 H 277 H Random Glucose Calcium Magnesium B-Natriuretic Peptide Progress Note: A&P Assessment and plan (1) Acute congestive heart failure: Status: Acute Assessment and Plan: Acute congestive heart failure with worsening creatinine. At this point time I would suggest and agree with lowering Bumex 1 mg daily. Strict intake and output chart needs to be pursued. Will follow creatinine tomorrow. Remained stable and physical therapy is agreeable, was discharged home to him. Avoid all other neurohormonal modulation as well as antihypertensives. (2) Persistent atrial fibrillation: Status: Acute Assessment and Plan: Persistent atrial fibrillation, rate controlled on amiodarone therapy. Continue amiodarone loading. Plan for cardioversion after loading is completed. Continue full oral anticoagulation., will follow with you Time Spent With Patient Time: Total time managing care of this patient today ____ minutes. Progress Note: Quality Stroke Does the patient have a stroke diagnosis?: No Procedures Date of Service Date of Service: 01/09/25
[2025-01-09 16:00] VITALS: BP 101/61; PULSE 87; RESP 18; TEMP 36.4; O2SAT 95
[2025-01-09] MEDS: Rivaroxaban 20 MG TABLET PO (16:11)
[2025-01-09 16:24] LABS: Glucose, Whole Blood 179 mg/dL (60-115)
[2025-01-09 16:38] LABS: Glucose, Whole Blood 170 mg/dL (60-115)
[2025-01-09 20:00] VITALS: BP 111/59; PULSE 93; RESP 18; TEMP 36.1; O2SAT 95
[2025-01-09 21:08] LABS: Glucose, Whole Blood 203 mg/dL (60-115)
[2025-01-09] MEDS: Atorvastatin Calcium 80 MG TABLET PO (21:47)
[2025-01-09] MEDS: Melatonin 3 MG TABLET 6 MG PO (21:47)
[2025-01-10] VITALS: BP 94/42; PULSE 99; RESP 66; TEMP 36.8; O2SAT 90
[2025-01-10 04:00] VITALS: BP 124/61; PULSE 93; RESP 18; TEMP 36.7; O2SAT 93
[2025-01-10 06:54] LABS: Anion Gap 15 (12-20); Blood Urea Nitrogen 37 mg/dL (9-16); Calcium 9.9 mg/dL (8.4-10.2); Carbon Dioxide 27 mmol/L (22-29); Chloride 93 mmol/L (96-108); Creatinine Clr Calc Pharmacy 55.1; Estimated Glomerular Filt Rate 42; Glucose Random 166 mg/dL (60-115); Magnesium 2.3 mg/dL (1.6-2.6); Potassium 4.4 mmol/L (3.3-5.1); Sodium 131 mmol/L (135-145)
[2025-01-10 07:02] LABS: B Type Natriuretic Peptide 130 pg/mL (<100)
[2025-01-10 07:27] VITALS: BP 138/74; PULSE 92; RESP 18; TEMP 36.1; O2SAT 98
[2025-01-10 07:52] LABS: Glucose, Whole Blood 156 mg/dL (60-115)
[2025-01-10] MEDS: Amiodarone HCL 200 MG TABLET 400 MG PO (08:13)
[2025-01-10] MEDS: Potassium Chloride ER 20 MEQ TAB.ER.PRT PO (08:13)
[2025-01-10] MEDS: Primidone 50 MG TABLET PO (08:13)
[2025-01-10] MEDS: Bumetanide 1 MG TABLET PO (08:13)
[2025-01-10] MEDS: Insulin Lispro 100 UNIT/ML 3 ML VIAL SUBCUT ×2 (08:14→12:24)
[2025-01-10] MEDS: Insulin Glargine,Hum.rec.anlog 100 UNIT/ML 10 ML VIAL 21 UNIT SUBCUT (08:14)
[2025-01-10] MEDS: Acetaminophen 325 MG TABLET 650 MG PO (08:14)
[2025-01-10] MEDS: 0.9 % Sodium Chloride Flush 3 ML SYRINGE IVFLUSH (08:17)
[2025-01-10 11:51] VITALS: BP 146/65; PULSE 82; RESP 18; TEMP 36.2; O2SAT 97
[2025-01-10 12:17] LABS: Glucose, Whole Blood 201 mg/dL (60-115)
--- NOTE | 2025-01-10 13:03 | PM.PNCARD ---
Subjective Subjective Date of Service: 01/10/25 Principal diagnosis: CHF, atrial fibrillation Interval history: Seen examined at bedside. Feeling better. Physical Exam Vital Signs: Last Vital Signs Temp 97.2 F 01/10/25 11:51 Pulse 82 01/10/25 11:51 Resp 18 01/10/25 11:51 BP 146/65 H 01/10/25 11:51 Pulse Ox 97 01/10/25 11:51 O2 Del Method Room Air 01/10/25 11:51 BMI result Body Mass Index 38.1 GENERAL APPEARANCE: in no acute distress, pleasant. NECK: no carotid bruit, no jugular venous distention. SKIN: no suspicious lesions, warm and dry. HEART: no murmurs, irregular rate and rhythm. LUNGS: clear to auscultation bilaterally. ABDOMEN: soft, nontender. EXTREMITIES: Bilateral lower extremity edema 2 to 3+ up to knees. PERIPHERAL PULSES: equal. NEUROLOGIC: No gross deficits, AAO X 3 Objective Labs and Meds 01/03/25 06:26 01/10/25 05:50 Lab results: Laboratory Results - last 24 hr 01/09/25 01/09/25 01/09/25 16:08 16:33 21:04 Sodium Potassium Chloride Carbon Dioxide Anion Gap BUN Creatinine Estim Creat Clear Calc Estimated GFR POC Glucose 179 H 170 H 203 H Random Glucose Calcium Magnesium B-Natriuretic Peptide 01/10/25 01/10/25 01/10/25 05:50 07:25 11:49 Sodium 131 L Potassium 4.4 Chloride 93 L Carbon Dioxide 27 Anion Gap 15 BUN 37 H Creatinine 1.59 H Estim Creat Clear Calc 55.1 Estimated GFR 42 POC Glucose 156 H 201 H Random Glucose 166 H Calcium 9.9 Magnesium 2.3 B-Natriuretic Peptide 130 H Progress Note: A&P Assessment and plan (1) Acute congestive heart failure: Status: Acute Plan [age] year gentleman with congestive heart failure. Clinically stable right now and appears to be euvolemic. Bumex p.o. 1 mg daily. Advise stopping amlodipine at discharge. Peripheral edema likely related to amlodipine. I think aggressive diuresis may worsened kidney function at this stage and agree with oral diuretics at this stage. For atrial fibrillation he has been started on amiodarone along with Xarelto. In 2 weeks dose can be decreased to 200 mg daily amiodarone. He will need outpatient cardioversion. Thank you for allowing me to participate in the care of your patient. Please feel free to contact me if you have any questions. Time Spent With Patient Time: Total time managing care of this patient today ____ minutes. Progress Note: Quality Stroke Does the patient have a stroke diagnosis?: No Procedures Date of Service Date of Service: 01/10/25
--- NOTE | 2025-01-10 13:37 | MHC.CM.PN ---
Second IMM given 01/10. Pt is medically cleared for discharge home with new [facility] services. Pts will transport him home today.
[2025-01-10 14:16] VITALS: BP 146/65; PULSE 82; O2SAT 97
--- NOTE | 2025-01-10 14:52 | P.DS_ITS ---
DS: Providers Provider Date of Service: 01/10/25 Date of admission: 01/02/25 00:46 Date of discharge: 01/10/25 Primary care physician: Artem Dahl MD Consults: 01/02/25 00:20 Consult to Cardiology Routine Consulting Provider: [facility] Reason for consultation: chf; effusion 01/04/25 12:17 Consult to Wound Care Routine Reason for consultation: open brianda to the L buttock DS: Diagnosis Discharge Diagnosis (1) Acute congestive heart failure: Status: Acute DS: Summary Hospital Course Hospital Course: 79-year-old male with past medical history significant for paroxysmal AFib on Xarelto hypertension hyperlipidemia and insulin-dependent type 2 diabetes as well as heart failure with preserved ejection fraction presented to the emergency room with 3 2-3 days of worsening shortness of breath. He was admitted to telemetry and seen by Cardiology. Echo demonstrated LVEF of 55-60% with moderate LVH and significant right atrial pressures that were elevated. Patient was started on IV diuresis with Lasix for extensive bilateral lower extremity edema. Rate was difficult to control and ultimately the patient was placed on amiodarone with good results. As per Cardiology he was started on Jardiance and amlodipine was DC. Patient continued to do well on IV Lasix however his kidney function slightly worsened. As a result, IV Lasix was DC in favor of torsemide. On the day of discharge he is markedly improved however still has considerable lower extremity edema. He will be followed up by Cardiology for outpatient cardioversion and med adjustment Time Attestation Discharge Coordination Time (in mins): 35 Quality: Safe Use of Opioids Does Pt have an Active Cancer Diagnosis on the Problem List?: No Quality: Stroke Does the patient have a stroke diagnosis?: No Physical Exam Vital Signs: Vital Signs: Last Vital Signs Temp 97.2 F 01/10/25 11:51 Pulse 82 01/10/25 14:16 Resp 18 01/10/25 11:51 BP 146/65 H 01/10/25 14:16 Pulse Ox 97 01/10/25 14:16 O2 Del Method Room Air 01/10/25 11:51 BMI result Body Mass Index 38.1 Const: Other: Awake alert no acute distress Resp: Other: Clear to auscultation bilaterally no rales rhonchi or wheezes Cardio: Other: No S4; positive S1-S2; no S3 murmurs rubs or gallops. Irregularly irregular Extrem: Other: 2 to 3+ edema bilateral DS: Data Data Completed and Pending Labs on day of discharge: Laboratory Results - last 24 hr 01/09/25 01/09/25 01/09/25 16:08 16:33 21:04 Sodium Potassium Chloride Carbon Dioxide Anion Gap BUN Creatinine Estim Creat Clear Calc Estimated GFR POC Glucose 179 H 170 H 203 H Random Glucose Calcium Magnesium B-Natriuretic Peptide 01/10/25 01/10/25 01/10/25 05:50 07:25 11:49 Sodium 131 L Potassium 4.4 Chloride 93 L Carbon Dioxide 27 Anion Gap 15 BUN 37 H Creatinine 1.59 H Estim Creat Clear Calc 55.1 Estimated GFR 42 POC Glucose 156 H 201 H Random Glucose 166 H Calcium 9.9 Magnesium 2.3 B-Natriuretic Peptide 130 H Discharge Plan Discharge Anticipated Discharge Date/Time: 01/10/25 14:41 Patient Disposition: Home Health Service Discharge Diagnosis: Acute diastolic heart failure secondary to atrial fibrillation Referrals: Sydnee RODRIGUEZ [Outside] - 1 Week Artem Dahl MD [Primary Care Provider] - 1 Week Discharge Medications: New Jardiance 10 mg Tablet 10 mg PO DAILY Qty: 30 0RF spironolactone 25 mg Tablet 25 mg PO DAILY Qty: 30 0RF Protocol: Hold for SBP< HOLD for SBP < : 90 bumetanide 1 mg Tablet 1 mg PO DAILY Qty: 30 0RF Protocol: Hold for SBP< HOLD for SBP < : 90 amiodarone 200 mg tablet 200 mg PO DAILY Qty: 30 2RF Continued primidone 50 mg tablet 50 mg PO BID amlodipine 5 mg tablet 5 mg PO BEDTIME insulin glargine [Basaglar KwikPen U-100 Insulin] 100 unit/mL (3 mL) insulin pen 30 unit subcut DAILY atorvastatin 80 mg tablet 80 mg PO BEDTIME irbesartan 300 mg tablet 300 mg PO DAILY bisoprolol-hydrochlorothiazide 5-6.25 mg tablet 1 tab PO DAILY (DME) lancets [FreeStyle Lancets] 28 gauge misc See Rx Instructions .ROUTE .MEDSUPPLY Qty: 300 3RF Rx Instructions: 3 times a day (DME) FreeStyle Lite Strips Strip See Rx Instructions .ROUTE .MEDSUPPLY Qty: 300 2RF Rx Instructions: 3 times a day (DME) pen needle, diabetic [BD Celina 2nd Gen Pen Needle] 32 gauge x 5/32 needle See Rx Instructions .MEDSUPPLY Qty: 100 4RF Rx Instructions: once a day Xarelto 20 mg tablet 20 mg PO DAILY@1700 Rx Instructions: must administer with evening meal Discharge Orders: Discharge Order (Routine); Ordered 01/10/25 Ordered By: [place] Diet: Advance to usual diet Activity on Discharge: As tolerated Stand Alone Forms: Patient Portal Discharge page Print Language: Hungarian Care Plan Goals: Continue all pre-hospital medications as outlined. Lasix has been changed to Bumex 1 mg daily and spironolactone has been added as well. Take these until seen by your blow torch burner in follow up. Jardiance has also been added to your daily routine.. Discussed with blow torch burner at next appointment Health Concerns: You have been started on amiodarone 200 mg daily. You completed your initial load in the hospital. Continue this medicine until seen by Cardiology and they will decide going forward what your regimen we will be Plan of Treatment: Follow up with your PCP next available Assessment: See discharge summary
--- NOTE | 2025-01-11 12:37 | W.MHC.F2F ---
Service Date Service Date: 01/11/25 Encounter Date of encounter: 01/10/25 Encounter: Acute hospitalization Reasons for Services Signs and symptoms assessed: Edema and respiratory assessment along with med management. Physical therapy secondary to deconditioning Reason for care home: medication management and medication treatment Reason for physical therapy: home safety and mobility, therapeutic exercises and gait/transfer training Homebound: Leaving the home is medically contraindicated at this time without the asist of a device and/or another person due th the listed conditions above and below. Reason homebound: unsteady gait / fall risk and leg weakness Certification: Based on the above findings, I certify that this patient is confined to the home and needs intermittent care home care, physical therapy and/or speech therapy, or continues to need occupational therapy. The patient is under my care, and I have initiated the establishment of the plan of care. The patient will be followed by a physician who will periodically review the plan of care. Time Spent With Patient Time: Total time managing care of this patient today ____ minutes.
== END 2025-01-10 16:19 | disposition home health service (06) | DRG 291 ==
LOC: HO.ED 01-02 00:27 → HO.EDOVER 01-02 00:46 → HO.IMC 01-02 01:18
PROVIDERS: Family Medicine; Physician Assistant Medical; Student in an Organized Health Care Education/Training Program; Admitting Provider Hospitalist; Emergency Provider Emergency Medicine Emergency Medical Services; PCP Family Medicine; Visit Provider Hospitalist
DX: I13.0 Hypertensive heart and chronic kidney disease with heart failure and stage 1 through stage 4 chronic kidney disease, or unspecified chronic kidney disease (principal); I50.33 Acute on chronic diastolic (congestive) heart failure; I48.19 Other persistent atrial fibrillation; E87.1 Hypo-osmolality and hyponatremia; N17.9 Acute kidney failure, unspecified; E87.6 Hypokalemia; G47.33 Obstructive sleep apnea (adult) (pediatric); I95.2 Hypotension due to drugs; E78.5 Hyperlipidemia, unspecified; N18.30 Chronic kidney disease, stage 3 unspecified; E11.22 Type 2 diabetes mellitus with diabetic chronic kidney disease; E11.42 Type 2 diabetes mellitus with diabetic polyneuropathy; Z20.822 Contact with and (suspected) exposure to COVID-19; Z79.01 Long term (current) use of anticoagulants; Z79.899 Other long term (current) drug therapy
CPT/HCPCS: 0241U; 36415; 71045; 71275; 80048; 80053; 82803; 82947; 83605; 83735; 83880; 84145; 84443; 84484; 85025; 85379; 85652; 86140; 86617; 86618; 87040; 93005; 93306; 94640; 97110; 97116; 97162; 97530; 99285; J0456; J0696; J1938; Q9957; Q9967

== ENCOUNTER → 2025-01-01 19:27 | Outpatient (BNV) | payer MEDICARE, OTHER, SELFPAY | PROVIDERS: PCP Family Medicine; Visit Provider Radiology Diagnostic Radiology | DX: I31.39 Other pericardial effusion (noninflammatory) (principal) | CPT/HCPCS: 71045; 71275 ==

== ENCOUNTER → 2025-01-01 19:27 | Outpatient (BNV) | payer MEDICARE, OTHER, SELFPAY | PROVIDERS: Admitting Provider Hospitalist; Emergency Provider Emergency Medicine Emergency Medical Services; PCP Family Medicine; Visit Provider Internal Medicine | DX: I48.91 Unspecified atrial fibrillation (principal) | CPT/HCPCS: 93010 ==

== ENCOUNTER 2025-01-02 00:46 | Outpatient (BNV) | payer MEDICARE, OTHER, SELFPAY | END 2025-01-03 07:00 | PROVIDERS: Admitting Provider Hospitalist; Emergency Provider Emergency Medicine Emergency Medical Services; PCP Family Medicine; Visit Provider Internal Medicine Cardiovascular Disease | DX: I42.2 Other hypertrophic cardiomyopathy (principal) | CPT/HCPCS: 93306 ==

== ENCOUNTER → 2025-01-02 00:46 | Outpatient (BNV) | payer MEDICARE, OTHER, SELFPAY | PROVIDERS: Admitting Provider Hospitalist; Emergency Provider Emergency Medicine Emergency Medical Services; PCP Family Medicine; Visit Provider Hospitalist | DX: I30.9 Acute pericarditis, unspecified (principal) | CPT/HCPCS: 99223; 99232; 99499 ==

== ENCOUNTER → 2025-01-02 00:46 | Outpatient (BNV) | payer MEDICARE, OTHER, SELFPAY | PROVIDERS: Admitting Provider Hospitalist; Emergency Provider Emergency Medicine Emergency Medical Services; PCP Family Medicine; Visit Provider Internal Medicine | DX: I50.9 Heart failure, unspecified (principal); I48.19 Other persistent atrial fibrillation; I30.9 Acute pericarditis, unspecified | CPT/HCPCS: 99223 ==

== ENCOUNTER 2025-01-24 11:36 | Outpatient (REF) | payer MEDICARE, OTHER, SELFPAY ==
[2025-01-24 11:43] LABS: MANUAL DIFF FLAG NO
[2025-01-24 11:50] LABS: Basophils Percent Auto 0.6 % (0-2); Eosinophils Absolute Auto 0.2 X10*3/uL (0.0-0.4); Eosinophils Percent Auto 2.3 % (0-4); Hematocrit 35.8 % (42.0-52.0); Hemoglobin 11.4 g/dl (14.0-18.0); Imm Gran Abs Auto 0.09 X10*3/uL (0.00-0.03); Imm Gran Pct Auto 1.3 % (0.0-0.4); Lymphocytes Absolute Auto 0.9 X10*3/uL (1.2-4.9); Lymphocytes Percent Auto 13.1 % (20-40); Mean Corpuscular HGB Conc 31.8 g/dl (31.0-36.0); Mean Corpuscular Hemoglobin 29.5 pg (27.0-33.0); Mean Corpuscular Volume 92.7 fL (80.0-98.0); Mean Platelet Volume 11.1 fL (9.4-12.4); Monocytes Absolute Auto 0.5 X10*3/uL (0.1-1.2); Monocytes Percent Auto 7.2 % (2-11); Neutrophils Absolute Auto 5.4 x10*3/uL (2.0-8.3); Neutrophils Percent Auto 75.5 % (45-73); Platelet Count 465 X10*3/uL (160-400); Red Blood Count 3.86 X10*6/uL (4.60-5.80); Red Cell Distribution Width 14.8 % (11.0-16.0); White Blood Count 7.1 X10*3/uL (4.8-10.8)
[2025-01-24 12:38] LABS: Erythrocyte Sedimentation Rate 88 MM/HR (0-15)
== END 2025-01-24 11:37 | disposition home or self-care (01) ==
LOC: HO.HVNA 11:36
PROVIDERS: Visit Provider Family Medicine
DX: I13.0 Hypertensive heart and chronic kidney disease with heart failure and stage 1 through stage 4 chronic kidney disease, or unspecified chronic kidney disease (principal)
CPT/HCPCS: 36415; 80053; 85025; 85652

== ENCOUNTER 2025-01-26 10:48 | Outpatient (REF) | payer MEDICARE, OTHER, SELFPAY ==
[2025-01-26 10:52] LABS: MANUAL DIFF FLAG NO
[2025-01-26 11:07] LABS: Basophils Absolute Auto 0.1 X10*3/uL (0.0-0.2); Basophils Percent Auto 0.8 % (0-2); Eosinophils Absolute Auto 0.3 X10*3/uL (0.0-0.4); Eosinophils Percent Auto 4.5 % (0-4); Hematocrit 33.9 % (42.0-52.0); Hemoglobin 11.2 g/dl (14.0-18.0); Imm Gran Abs Auto 0.04 X10*3/uL (0.00-0.03); Imm Gran Pct Auto 0.6 % (0.0-0.4); Lymphocytes Absolute Auto 1.2 X10*3/uL (1.2-4.9); Lymphocytes Percent Auto 19.2 % (20-40); Mean Corpuscular Hemoglobin 29.6 pg (27.0-33.0); Mean Corpuscular Volume 89.7 fL (80.0-98.0); Mean Platelet Volume 9.4 fL (9.4-12.4); Monocytes Absolute Auto 0.7 X10*3/uL (0.1-1.2); Monocytes Percent Auto 10.3 % (2-11); Neutrophils Absolute Auto 4.1 x10*3/uL (2.0-8.3); Neutrophils Percent Auto 64.6 % (45-73); Platelet Count 347 X10*3/uL (160-400); Red Blood Count 3.78 X10*6/uL (4.60-5.80); Red Cell Distribution Width 15.1 % (11.0-16.0); White Blood Count 6.4 X10*3/uL (4.8-10.8)
[2025-01-26 11:46] LABS: Erythrocyte Sedimentation Rate 97 MM/HR (0-15)
[2025-01-26 14:10] LABS: Alanine Aminotransferase 29 U/L (0-40); Albumin Level 3.6 g/dL (3.5-5.0); Alkaline Phosphatase 103 U/L (39-117); Anion Gap 14 (12-20); Aspartate Amino Transferase 41 U/L (5-37); Bilirubin Total 0.4 mg/dL (0.0-1.0); Blood Urea Nitrogen 46 mg/dL (9-16); Carbon Dioxide 24 mmol/L (22-29); Chloride 101 mmol/L (96-108); Estimated Glomerular Filt Rate 43; Glucose Random 104 mg/dL (60-115); Potassium 4.8 mmol/L (3.3-5.1); Sodium 134 mmol/L (135-145); Total Protein 7.8 g/dL (6.5-8.0)
== END 2025-01-26 10:49 | disposition home or self-care (01) ==
LOC: HO.HVNA 10:48
PROVIDERS: Visit Provider Family Medicine
DX: I13.0 Hypertensive heart and chronic kidney disease with heart failure and stage 1 through stage 4 chronic kidney disease, or unspecified chronic kidney disease (principal)
CPT/HCPCS: 36415; 80053; 85025; 85652

== ENCOUNTER 2025-02-01 10:03 | Outpatient (AMB) | payer MEDICARE, OTHER, SELFPAY ==
--- NOTE | 2025-02-01 10:07 | MHC.OFFVIS ---
Vital Signs 02/01/25 10:08 Height 6 ft 1 in Weight 253 lb 8.505 oz BMI 33.4 BP 122/68 Blood Pressure Location Lt brachial Position Sitting Pulse 76 Pulse Source Monitor Intake Visit Reasons: 2 week f/up [facility] d/c Allergies enviromental Allergy (Unknown, Verified 01/01/25 19:28) Sneezing pets Allergy (Unknown, Verified 01/01/25 19:28) Itching Medication List - Last Reviewed 02/01/25 by Theresa Jackson amiodarone 200 mg PO DAILY atorvastatin 80 mg PO BEDTIME bisoprolol-hydrochlorothiazide 5-6.25 mg 1 tab PO DAILY blood sugar diagnostic (FreeStyle Lite Strips) 3 times a day bumetanide 1 mg See Protocol PO DAILY empagliflozin (Jardiance) 10 mg PO DAILY insulin glargine (Basaglar KwikPen U-100 Insulin) 30 units subcut DAILY lancets (FreeStyle Lancets) 3 times a day pen needle, diabetic (BD Celina 2nd Gen Pen Needle) once a day primidone 50 mg PO BID rivaroxaban (Xarelto) 20 mg PO DAILY@1700 HPI Comments Details: Job returns for follow-up regarding atrial fibrillation. In 2023, he was seen in consultation regarding atrial fibrillation. That time, echocardiogram had shown preserved LVEF. Many comorbidities. Patient himself had absolutely no complaints. He was on rate control with beta-blockers and also on anticoagulation. However, recently, he was admitted to the hospital with shortness of breath and leg swelling. In that context, treated as congestive heart failure and it seems he has lost more than 20 lb in weight from diuretics. He states he is feeling much better now. He was put on amiodarone with a plan for outpatient cardioversion. He is extremely vague with medications and not entirely clear as to what he takes and what he does not. Seems after he saw the PCP recently some of the meds were discontinued including Jardiance, spironolactone and irbesartan. However, patient himself does not know the names. [facility] Medical History (Updated 02/01/25 @ 12:30 by Javed Julio MD) Pleural effusion Persistent atrial fibrillation Atrial fibrillation by electrocardiogram Stroke (~2018) CKD (chronic kidney disease) stage 3, GFR 30-59 ml/min Obesity (BMI 30-39.9) Diabetic polyneuropathy associated with type 2 diabetes mellitus Dyslipidemia Hypertension Diabetic nephropathy associated with type 2 diabetes mellitus retirement (current) use of insulin Diabetes type 2, controlled Surgical History Hx of appendectomy Hx of tonsillectomy Family History Father History of heart attack Mother No problems noted. Social History Household Members: Spouse Alcohol intake: current Alcohol intake frequency: holidays/special occasions only Comment: patient refusing alarms Patient Tobacco Use Status: Never used Tobacco Advance Directives Date on File: 01/01/25 service: No Review of Systems Const Denies weakness ENT Denies dizziness Card Denies chest pain, Denies chest pain with activity, Denies syncope, Denies rapid heart rate, Denies pedal edema, Denies edema, Denies leg edema, Denies lightheadedness, Denies palpitations, Denies dyspnea, Denies dyspnea on exertion and Denies orthopnea Resp Denies cough, Denies dyspnea and Denies dyspnea on exertion GI Denies hematochezia and Denies change in stool character Musc Denies abnormal gait, Denies muscle cramps, Denies muscle weakness, Denies numbness, Denies radiating pain into limb and Denies tingling Neuro Denies abnormal gait, Denies dizziness, Denies syncope, Denies numbness, Denies tingling and Denies weakness Endo Denies palpitations Physical Exam Vital Signs: Last Vital Signs Pulse 76 02/01/25 10:08 BP 122/68 02/01/25 10:08 BMI result Body Mass Index 33.4 Const General: comfortable and no acute distress Orientation/consciousness: patient oriented x3 HEENT Other: Unremarkable Head: Yes normal to inspection Neck Neck: Yes normal visual inspection Chest Chest palpation & inspection: normal inspection of the chest Resp Auscultation: clear to auscultation bilaterally Cardio Palpation: normal PMI Heart sounds: S1 normal heart sound present, S2 normal heart sound present, no gallops, no murmurs and no rubs GI Palpation (GI): Soft to palpation Back/Spine/Pelvis Other: unremarkable Skin General skin exam: no rashes or lesions noted Neuro General: patient oriented x3 Extrem General: Yes normal to inspection Psych Mental Status: mental status grossly normal Office Procedures EKG Details: EKG with atrial flutter with variable block at 76/Min. Inferior and anterolateral T inversions. [id number], Complete Assessment & Plan Assessment & Plan (1) Persistent atrial fibrillation: Code(s): I48.19 - Other persistent atrial fibrillation Category: Medical Plan: He remains on amiodarone/anticoagulation. Plan for outpatient cardioversion. (2) Chronic heart failure with preserved ejection fraction: Code(s): I50.32 - Chronic diastolic (congestive) heart failure Category: Medical Plan: He is listed to be on Bumex. No changes. Spironolactone was stopped by PCP. He was also on Jardiance which has also been stopped per PCP note. Patient himself is very vague about it and hence no changes made today. (3) Diabetes type 2, controlled: Code(s): E11.9 - Type 2 diabetes mellitus without complications Category: Medical Plan: Hemoglobin A1c is 7.7%. On insulin. Not clear if he is taking Jardiance or not. (4) Hypertension: Code(s): I10 - Essential (primary) hypertension Category: Medical Plan: Stable. Per PCP note, Irbesartan has been stopped. Should be able to go back on it long-term, as long as the renal function is stable. (5) Dyslipidemia: Code(s): E78.5 - Hyperlipidemia, unspecified Category: Medical Plan: On statins. (6) Obesity (BMI 30-39.9): Code(s): E66.9 - Obesity, unspecified Category: Medical Plan: Ideally, weight loss but not sure if he is going to actually achieve that or not. Orders: Orders Basic Metabolic Panel 3 Weeks I48.19 - Other persistent atrial fibrillation Coding Level of Care Code Est Pt Level 4 (27868) Complex EM visit Add On G2211 Diagnoses Persistent atrial fibrillation I48.19 Chronic heart failure with preserved ejection fraction I50.32 Diabetes type 2, controlled E11.9 Hypertension I10 Dyslipidemia E78.5 Obesity (BMI 30-39.9) E66.9 CPT Codes EKG - CPT: 58550-[id number], Complete ([id number])
[2025-02-01 10:08] VITALS: BP 122/68; PULSE 76; BMI 33.4
== END 2025-02-01 10:40 | disposition home or self-care (01) ==
PROVIDERS: PCP Family Medicine; Visit Provider Internal Medicine
DX: I48.19 Other persistent atrial fibrillation (principal); I50.32 Chronic diastolic (congestive) heart failure; E11.9 Type 2 diabetes mellitus without complications; I10 Essential (primary) hypertension; E78.5 Hyperlipidemia, unspecified; E66.9 Obesity, unspecified
CPT/HCPCS: 93010; 99214; G2211

== ENCOUNTER → 2025-02-01 10:03 | Outpatient (BNVA) | payer MEDICARE, OTHER, SELFPAY | PROVIDERS: PCP Family Medicine; Visit Provider Internal Medicine | DX: I48.19 Other persistent atrial fibrillation (principal); I11.0 Hypertensive heart disease with heart failure; I50.32 Chronic diastolic (congestive) heart failure; E11.9 Type 2 diabetes mellitus without complications; E78.5 Hyperlipidemia, unspecified; E66.9 Obesity, unspecified; R94.31 Abnormal electrocardiogram [ECG] [EKG]; I44.39 Other atrioventricular block; Z68.33 Body mass index [BMI] 33.0-33.9, adult | CPT/HCPCS: 93005; 99212 ==

== ENCOUNTER 2025-02-13 20:51 | Day surgery (SDC) | payer MEDICARE, OTHER, SELFPAY ==
[2025-02-13 21:35] VITALS: BP 141/70; PULSE 75; RESP 18; TEMP 36.7; O2SAT 97; BMI 31.5
--- NOTE | 2025-02-13 21:43 | ECG_ITS ---
Test Reason : CHEST PAIN, TRUBLE SWALLOWING Blood Pressure : */* mmHG Vent. Rate : 80 BPM Atrial Rate : 300 BPM P-R Int : * ms QRS Dur : 94 ms QT Int : 400 ms P-R-T Axes : * 14 192 degrees QTcB Int : 461 ms Atrial flutter with variable A-V block T wave abnormality, consider anterolateral ischemia Abnormal ECG When compared with ECG of 01-Jan-2025 19:51, Atrial flutter has replaced Atrial fibrillation Referred By: Chandana Hicks Electronically Signed By: NO WOO
[2025-02-13 22:00] VITALS: BP 117/62; PULSE 70; RESP 19; TEMP 37.1; O2SAT 100
--- NOTE | 2025-02-13 22:29 | ED.GENADULT ---
HPI - General Adult General Chief complaint: General Medical Stated complaint: swollen esophagus? Time Seen by Provider: 02/13/25 21:45 History of Present Illness ED Provider: Dr. Chandana Hicks HPI narrative: 79-year-old male with past medical history significant for paroxysmal AFib on Xarelto hypertension hyperlipidemia and insulin-dependent type 2 diabetes as well as heart failure with preserved ejection fraction who presents emergency department for evaluation of difficulty swallowing. The patient states that around noon time (10 hours prior to evaluation) he ate asparagus and 3 paces of steak. He states that prior to eating the steak he felt like he was having difficulty swallowing but after eating the steak he was not able to swallow his secretions. He states he feels like something is stuck in his throat. Patient states he did take his Xarelto earlier in the morning. The patient was hospitalized from 01/02/2025 until 01/11/2025 for congestive heart failure and fluid overload. Patient had an echocardiogram at that time which revealed an LVEF of 55-60% with moderate LVH and significant right atrial pressures that were elevated.Rate was difficult to control and ultimately the patient was placed on amiodarone with good results Related Data Home Medications ?Medication ?Instructions ?Recorded ?Confirmed bisoprolol 5 1 tab PO DAILY 07/06/20 02/01/25 mg-hydrochlorothiazide 6.25 mg tablet rivaroxaban 20 mg tablet (Xarelto) 20 mg PO DAILY@1700 06/24/24 02/01/25 atorvastatin 80 mg tablet 80 mg PO BEDTIME 01/02/25 02/01/25 insulin glargine 100 unit/mL (3 30 unit subcut DAILY 01/02/25 02/01/25 mL) subcutaneous pen (Basaglar KwikPen U-100 Insulin) primidone 50 mg tablet 50 mg PO BID 01/02/25 02/01/25 Previous Rx's ?Medication ?Instructions ?Recorded blood sugar diagnostic (FreeStyle #300 ea 01/31/21 Lite Strips) lancets 28 gauge (FreeStyle #300 ea 01/31/21 Lancets) pen needle, diabetic 32 gauge x #100 ea 01/31/21 (BD Celina 2nd Gen Pen Needle) amiodarone 200 mg tablet 200 mg PO DAILY #30 tabs 01/10/25 bumetanide 1 mg tablet 1 mg PO DAILY #30 tabs 01/10/25 empagliflozin 10 mg tablet 10 mg PO DAILY #30 tabs 01/10/25 (Jardiance) Allergies Allergy/AdvReac Type Severity Reaction Status Date / Time enviromental Allergy Unknown Sneezing Verified 02/13/25 21:39 pets Allergy Unknown Itching Verified 02/13/25 21:39 Review of Systems Review of Systems: Yes all other systems are reviewed and are negative [facility] Past Medical History Medical History (Updated 02/14/25 @ 00:11 by Chandana Hicks MD) Pleural effusion Persistent atrial fibrillation Atrial fibrillation by electrocardiogram Stroke (~2018) CKD (chronic kidney disease) stage 3, GFR 30-59 ml/min Obesity (BMI 30-39.9) Diabetic polyneuropathy associated with type 2 diabetes mellitus Dyslipidemia Hypertension Diabetic nephropathy associated with type 2 diabetes mellitus detention (current) use of insulin Diabetes type 2, controlled Surgical History Hx of appendectomy Hx of tonsillectomy Family History Family History Father History of heart attack Mother No problems noted. Social History Social History Household Members: Spouse Alcohol intake: never Comment: patient refusing alarms Patient Tobacco Use Status: Never used Tobacco Smoked in Last 30 Days: No Advance Directives: Yes Advance Directives on File: Yes Advance Directives Date on File: 01/01/25 Do you have a plan to hurt others: No Plan service: No Physical Exam ED Vital Signs: Vital Signs - 24 hr 02/13/25 21:35 02/13/25 22:00 Temperature 98.1 F 98.7 F Pulse Rate 75 70 Respiratory Rate 18 19 Blood Pressure 141/70 H 117/62 Pulse Oximetry 97 100 Oxygen Delivery Method Room Air Room Air BMI result Body Mass Index 31.5 Vital signs revealed an elevated blood pressure of 141/70 otherwise unremarkable Exam: General: Awake, alert in no distress, patient is having difficulty swallowing his secretions in his spitting them up into an emesis bag Head: Normocephalic, atraumatic EENT: PERRL, Lids normal, sclera normal, conjunctiva normal, nose normal , ears normal, throat without erythema or exudates Neck: Supple, no adenopathy Lung: breath sounds symmetric, no wheezing, rales or rhonchi Chest: symmetric movement, nontender Heart: regular rate and rhythm, normal S1, S2 no murmurs or rubs Abdomen: soft, non-tender, nondistended, normal bowel sounds Back: no vertebral tenderness, no CVAT Extremities: no deformities, moves all extremities symmetrically, trace to 1+ pitting edema bilaterally symmetric Neuro: Awake, alert, oriented, normal speech, cranial nerves intact, moves all extremities symmetrically Psych: Pleasant, cooperative Medications Administered Generic Name Dose Route Start Last Admin Trade Name Freq PRN Reason Stop Dose Admin Sodium Chloride 1,000 mls @ 125 mls/hr 02/13/25 21:43 02/13/25 22:49 Ns IV 02/14/25 05:42 125 mls/hr .Q8H STA Administration Discontinued Medications Generic Name Dose Route Start Last Admin Trade Name Freq PRN Reason Stop Dose Admin Glucagon 2 mg 02/13/25 21:43 02/13/25 22:33 Glucagon Hcl 1 Mg Vial IVPUSH 02/13/25 21:44 2 mg ONCE ONE Administration Medical Decision Making Medical Decision Making MDM Narrative: 79-year-old male with past medical history significant for paroxysmal AFib on Xarelto hypertension hyperlipidemia and insulin-dependent type 2 diabetes as well as heart failure with preserved ejection fraction who presents emergency department for evaluation of difficulty swallowing. The patient states that around noon time (10 hours prior to evaluation) he ate asparagus and 3 paces of steak. He states that prior to eating the steak he felt like he was having difficulty swallowing but after eating the steak he was not able to swallow his secretions. He states he feels like something is stuck in his throat. Patient states he did take his Xarelto earlier in the morning. The patient was hospitalized from 01/02/2025 until 01/11/2025 for congestive heart failure and fluid overload. Patient had an echocardiogram at that time which revealed an LVEF of 55-60% with moderate LVH and significant right atrial pressures that were elevated.Rate was difficult to control and ultimately the patient was placed on amiodarone with good results. Vital signs revealed an elevated blood pressure. Patient was having difficulty swallowing his secretions and was spitting them up into an emesis bag. Exam was otherwise unremarkable. Differential diagnosis: ?Includes but is not limited to esophageal food bolus obstruction, esophageal narrowing, GERD, anemia, electrolyte abnormalities Course: 22:42 Patient's EKG did reveal new T-wave inversions in aVL, V4 through V6 but I do not think these are significant and I do not think that they represent ischemia. I did discuss the patient's presentation with Dr. Man and he will call in the endoscopy team. 23:54 My independent interpretation patient's laboratory evaluation is as follows: WBC was normal 9000. PT INR elevated 22.5 and 2.0. PTT elevated 41.5. These elevations are secondary to Xarelto. BUN and creatinine were elevated 22 and 1.42-improved from 01/26/2025. AST and ALT were elevated [address] Man did evaluate the patient in the emergency department and he is going to take the patient to the endoscopy suite for endoscopy. 00:11 Patient was transferred to the endoscopy suite and he will be discharged after his procedure from endoscopy. Admission/Observation Consideration of admission/observation: Escalation of care including admission/observation considered (Yes) Lab Data MDM Lab Attestation statement: I reviewed the patient's lab results. 02/13/25 22:47 02/13/25 22:47 Labs: Lab Results 02/13/25 Range/Units 22:47 WBC 9.0 (4.8-10.8) X10*3/uL RBC 4.56 L D (4.60-5.80) X10*6/uL Hgb 13.3 L (14.0-18.0) g/dl Hct 41.4 L D (42.0-52.0) % MCV 90.8 (80.0-98.0) fL MCH 29.2 (27.0-33.0) pg MCHC 32.1 (31.0-36.0) g/dl RDW 15.8 (11.0-16.0) % Plt Count 277 (160-400) X10*3/uL MPV 9.7 (9.4-12.4) fL Immature Gran % (Auto) 0.3 (0.0-0.4) % Neut % (Auto) 75.2 H (45-73) % Lymph % (Auto) 12.6 L (20-40) % [place] % (Auto) 8.4 (2-11) % Eos % (Auto) 2.9 (0-4) % Baso % (Auto) 0.6 (0-2) % Lymph # (Auto) 1.1 L (1.2-4.9) X10*3/uL [place] # (Auto) 0.8 (0.1-1.2) X10*3/uL Eos # (Auto) 0.3 (0.0-0.4) X10*3/uL Baso # (Auto) 0.1 (0.0-0.2) X10*3/uL Abs Immat Gran (auto) 0.03 (0.00-0.03) X10*3/uL Absolute Neuts (auto) 6.8 (2.0-8.3) x10*3/uL Absolute Nucleated RBC 0.000 (0.0-0.012) X10*3/uL Nucleated RBC % (auto) 0.0 (0.0-0.2) /100WBC PT 22.5 H (10.9-12.4) SEC INR 2.0 H (0.9-1.1) APTT 41.5 H (26.0-36.8) SEC Sodium 138 (135-145) mmol/L Potassium 3.7 D (3.3-5.1) mmol/L Chloride 103 (96-108) mmol/L Carbon Dioxide 23 (22-29) mmol/L Anion Gap 16 (12-20) BUN 22 H (9-16) mg/dL Creatinine 1.42 H (0.5-1.4) mg/dL Estim Creat Clear Calc 56.2 Estimated GFR 48 Random Glucose 112 (60-115) mg/dL Calcium 10.2 (8.4-10.2) mg/dL Total Bilirubin 0.6 (0.0-1.0) mg/dL AST 44 H (5-37) U/L ALT 47 H (0-40) U/L Alkaline Phosphatase 106 (39-117) U/L Troponin I High Sens < 2.7 (<3.5-35.0) ng/L Total Protein 8.1 H (6.5-8.0) g/dL Albumin 4.3 (3.5-5.0) g/dL Lipase 24 (8-78) U/L Independent Interpretation I performed an independent interpretation of an: EKG Interpretation: My independent interpretation patient's 12 EKG done on 02/13/2025 at 22:28 hours is as follows: Atrial fibrillation with a rate of 80, normal QRS duration and QTC interval, inverted T-waves 1, aVL, V4 through V6, no ST segment elevation, no ST segment depression. Compared to EKG dated 01/01/2025 at 19:51 hours, inverted T-waves in aVL, V4 through V6 are new. Independent Historian Clinical information obtained from an independent historian. History obtained from or confirmed by: Spouse Discharge Plan Discharge Clinical Impression: Food bolus obstruction of intestine Patient Disposition: Xfer Other Transfer Details: Endoscopy suite for upper endoscopy Prescriptions: No Action primidone 50 mg tablet 50 mg PO BID insulin glargine [Basaglar KwikPen U-100 Insulin] 100 unit/mL (3 mL) insulin pen 30 unit subcut DAILY atorvastatin 80 mg tablet 80 mg PO BEDTIME bumetanide 1 mg Tablet 1 mg PO DAILY Qty: 30 0RF Protocol: Hold for SBP< HOLD for SBP < : 90 Jardiance 10 mg Tablet 10 mg PO DAILY Qty: 30 0RF amiodarone 200 mg tablet 200 mg PO DAILY Qty: 30 0RF bisoprolol-hydrochlorothiazide 5-6.25 mg tablet 1 tab PO DAILY (DME) lancets [FreeStyle Lancets] 28 gauge misc See Rx Instructions .ROUTE .MEDSUPPLY Qty: 300 3RF Rx Instructions: 3 times a day (DME) FreeStyle Lite Strips Strip See Rx Instructions .ROUTE .MEDSUPPLY Qty: 300 2RF Rx Instructions: 3 times a day (DME) pen needle, diabetic [BD Celina 2nd Gen Pen Needle] 32 gauge x 5/32 needle See Rx Instructions .MEDSUPPLY Qty: 100 4RF Rx Instructions: once a day Xarelto 20 mg tablet 20 mg PO DAILY@1700 Rx Instructions: must administer with evening meal Print Language: Citizen Of [place]
[2025-02-13] MEDS: glucagon HCL 1 MG VIAL 2 MG IVPUSH (22:33)
[2025-02-13] MEDS: 0.9 % Sodium Chloride 1,000 ML 125 ML IV (22:49)
[2025-02-13 23:10] LABS: MANUAL DIFF FLAG NO
[2025-02-13 23:12] LABS: Basophils Absolute Auto 0.1 X10*3/uL (0.0-0.2); Basophils Percent Auto 0.6 % (0-2); Eosinophils Absolute Auto 0.3 X10*3/uL (0.0-0.4); Eosinophils Percent Auto 2.9 % (0-4); Hematocrit 41.4 % (42.0-52.0); Hemoglobin 13.3 g/dl (14.0-18.0); Imm Gran Abs Auto 0.03 X10*3/uL (0.00-0.03); Imm Gran Pct Auto 0.3 % (0.0-0.4); Lymphocytes Absolute Auto 1.1 X10*3/uL (1.2-4.9); Lymphocytes Percent Auto 12.6 % (20-40); Mean Corpuscular HGB Conc 32.1 g/dl (31.0-36.0); Mean Corpuscular Hemoglobin 29.2 pg (27.0-33.0); Mean Corpuscular Volume 90.8 fL (80.0-98.0); Mean Platelet Volume 9.7 fL (9.4-12.4); Monocytes Absolute Auto 0.8 X10*3/uL (0.1-1.2); Monocytes Percent Auto 8.4 % (2-11); Neutrophils Absolute Auto 6.8 x10*3/uL (2.0-8.3); Neutrophils Percent Auto 75.2 % (45-73); Platelet Count 277 X10*3/uL (160-400); Red Blood Count 4.56 X10*6/uL (4.60-5.80); Red Cell Distribution Width 15.8 % (11.0-16.0)
[2025-02-13 23:22] LABS: Prothrombin Time 22.5 SEC (10.9-12.4)
[2025-02-13 23:25] LABS: Partial Thromboplastin Time 41.5 SEC (26.0-36.8)
[2025-02-13 23:26] LABS: Alanine Aminotransferase 47 U/L (0-40); Albumin Level 4.3 g/dL (3.5-5.0); Alkaline Phosphatase 106 U/L (39-117); Anion Gap 16 (12-20); Aspartate Amino Transferase 44 U/L (5-37); Bilirubin Total 0.6 mg/dL (0.0-1.0); Blood Urea Nitrogen 22 mg/dL (9-16); Calcium 10.2 mg/dL (8.4-10.2); Carbon Dioxide 23 mmol/L (22-29); Chloride 103 mmol/L (96-108); Creatinine Clr Calc Pharmacy 56.2; Estimated Glomerular Filt Rate 48; Glucose Random 112 mg/dL (60-115); Lipase 24 U/L (8-78); Potassium 3.7 mmol/L (3.3-5.1); Sodium 138 mmol/L (135-145); Total Protein 8.1 g/dL (6.5-8.0)
[2025-02-13 23:35] LABS: Troponin-I High Sensitivity < 2.7 ng/L (<3.5-35.0)
--- NOTE | 2025-02-14 00:03 | PC.NURSE ---
report given to Eusebio SANFORD in surgery. pt assisted in gown change and at bedside.
--- NOTE | 2025-02-14 00:05 | PC.NURSE ---
pt to surgery at this time
--- NOTE | 2025-02-14 00:09 | HO.ANESPROP2 ---
[facility] Active Problems Active Problems: All Active Problems Persistent atrial fibrillation (Acute) Chronic heart failure with preserved ejection fraction (Acute) Atrial fibrillation by electrocardiogram (Acute) Varicose veins of left lower extremity with inflammation (Acute) Raynaud disease (Acute) Varicose veins of right lower extremity with inflammation (Acute) PAD (peripheral artery disease) (Acute) CKD (chronic kidney disease) stage 3, GFR 30-59 ml/min (Acute) Obesity (BMI 30-39.9) (Acute) Diabetic polyneuropathy associated with type 2 diabetes mellitus (Acute) Dyslipidemia (Acute) Hypertension (Acute) Diabetic nephropathy associated with type 2 diabetes mellitus (Acute) 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 (Acute) Diabetes type 2, controlled (Acute) Past Medical History Medical History (Updated 02/01/25 @ 12:30 by Javed Julio MD) Pleural effusion Persistent atrial fibrillation Atrial fibrillation by electrocardiogram Stroke (~2018) CKD (chronic kidney disease) stage 3, GFR 30-59 ml/min Obesity (BMI 30-39.9) Diabetic polyneuropathy associated with type 2 diabetes mellitus Dyslipidemia Hypertension Diabetic nephropathy associated with type 2 diabetes mellitus 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 Family history of problems with anesthesia: No Surgical History Surgical History Hx of appendectomy Hx of tonsillectomy History of Problems with Anesthesia: No Social History Social History Household Members: Spouse Alcohol intake: never Comment: patient refusing alarms Patient Tobacco Use Status: Never used Tobacco Smoked in Last 30 Days: No Advance Directives: Yes Advance Directives on File: Yes Advance Directives Date on File: 01/01/25 Do you have a plan to hurt others: No Plan service: No Meds Allergies Allergy/AdvReac Type Severity Reaction Status Date / Time enviromental Allergy Unknown Sneezing Verified 02/13/25 21:39 pets Allergy Unknown Itching Verified 02/13/25 21:39 Active Medications: Current Medications Sodium Chloride (Ns) 1,000 mls @ 125 mls/hr IV .Q8H STA Stop: 02/14/25 05:42 Last Admin: 02/13/25 22:49 Dose: 125 mls/hr Home Medications ?Medication ?Instructions ?Recorded ?Confirmed ?Last Taken ?Type bisoprolol 5 1 tab PO DAILY 07/06/20 02/01/25 01/01/25 History mg-hydrochlorothiazide 6.25 mg tablet rivaroxaban 20 mg tablet (Xarelto) 20 mg PO DAILY@1700 06/24/24 02/01/25 01/01/25 History atorvastatin 80 mg tablet 80 mg PO BEDTIME 01/02/25 02/01/25 Unknown History insulin glargine 100 unit/mL (3 30 unit subcut DAILY 01/02/25 02/01/25 01/01/25 History mL) subcutaneous pen (Basaglar KwikPen U-100 Insulin) primidone 50 mg tablet 50 mg PO BID 01/02/25 02/01/25 01/01/25 History Exam Height,Weight and Vital Signs: Height 6 ft 1 in Weight 108.2 kg Last Vital Signs Temp 98.7 F 02/13/25 22:00 Pulse 70 02/13/25 22:00 Resp 19 02/13/25 22:00 BP 117/62 02/13/25 22:00 Pulse Ox 100 02/13/25 22:00 O2 Del Method Room Air 02/13/25 22:00 Pertinent Lab Results Pertinent Lab Results: Laboratory Tests 02/13/25 22:47 WBC 9.0 RBC 4.56 L D Hgb 13.3 L Hct 41.4 L D MCV 90.8 MCH 29.2 MCHC 32.1 RDW 15.8 Plt Count 277 MPV 9.7 Immature Gran % (Auto) 0.3 Neut % (Auto) 75.2 H Lymph % (Auto) 12.6 L [place] % (Auto) 8.4 Eos % (Auto) 2.9 Baso % (Auto) 0.6 Lymph # (Auto) 1.1 L [place] # (Auto) 0.8 Eos # (Auto) 0.3 Baso # (Auto) 0.1 Abs Immat Gran (auto) 0.03 Absolute Neuts (auto) 6.8 Absolute Nucleated RBC 0.000 Nucleated RBC % (auto) 0.0 PT 22.5 H INR 2.0 H APTT 41.5 H Sodium 138 Potassium 3.7 D Chloride 103 Carbon Dioxide 23 Anion Gap 16 BUN 22 H Creatinine 1.42 H Estim Creat Clear Calc 56.2 Estimated GFR 48 Random Glucose 112 Calcium 10.2 Total Bilirubin 0.6 AST 44 H ALT 47 H Alkaline Phosphatase 106 Troponin I High Sens < 2.7 Total Protein 8.1 H Albumin 4.3 Lipase 24 Airway Mallampati Class: III TM Dist: >3cm Neck ROM: Full Assessment and Plan Assessment Anesthesia Assessment: Anesthesia Plan Discussed and Chart Reviewed Final Anesthetic Review Family History of Problems with Anesthesia: No History of Problems with Anesthesia: No NPO: Yes ASA Class: III and Emergency Final Preanesthetic Review: No Changes in Pt Med Stat, Meds/Allgs Chart Reviewed, Consent Obtained/Reviewed and Anes Risks/Benef Reviewed Patient Risk: Intermediate Procedure Risk: Intermediate Anesthetic Plan Anesthetic Plan: GA Disposition: Standard PACU
[2025-02-14 01:20] VITALS: BP 137/89; PULSE 73; RESP 17; TEMP 36.1; O2SAT 96
[2025-02-14 01:25] VITALS: BP 144/80; PULSE 69; RESP 17; O2SAT 98
[2025-02-14 01:30] VITALS: BP 133/79; PULSE 76; RESP 18; O2SAT 96
[2025-02-14 01:35] VITALS: BP 125/80; PULSE 71; RESP 18; TEMP 36.4; O2SAT 96
--- NOTE | 2025-02-14 04:15 | CONS_ITS ---
DATE OF SERVICE: REFERRING PHYSICIAN: Dr. Hicks REASON FOR CONSULTATION: Esophageal food bolus. HISTORY OF PRESENT ILLNESS: The patient is a pleasant 79-year-old man who presented to the emergency room today with complaints of esophageal obstruction. This happened earlier around noon time when he ate steak and asparagus. He denies any prior history of esophageal obstruction symptoms. He does not have chronic reflux symptoms and does not take chronic PPI medications. He does use occasional OTC antacids for rare episodes of reflux. After eating, he was unable to swallow his secretions and presented to the emergency room, where he was evaluated. Laboratory studies were obtained and are reviewed. He was unable to handle secretions and an endoscopy was requested. Of note, the patient does take anticoagulants for history of atrial fibrillation. PAST MEDICAL HISTORY: 1. Atrial fibrillation. 2. Heart failure with preserved ejection fraction. 3. Varicose veins. 4. Peripheral arterial disease. 5. Chronic kidney disease. 6. Elevated body mass index. 7. Polyneuropathy from diabetes. 8. Hypertension. 9. Neuropathy. 10. Diabetes. CURRENT MEDICATIONS: His current medication list is reviewed in the chart. ALLERGIES: THERE ARE NO DRUG ALLERGIES RECORDED. FAMILY HISTORY: This is reviewed with the patient and is noncontributory. SOCIAL HISTORY: There is no current tobacco, alcohol, or substance abuse. REVIEW OF SYSTEMS: SKIN: No pruritus. HEENT: Negative. CARDIOPULMONARY: No shortness of breath or chest pain. GASTROINTESTINAL: As above. GENITOURINARY: Negative. NEUROPSYCHIATRIC: Negative. PHYSICAL EXAMINATION: GENERAL: Shows a pleasant male in no acute distress. VITAL SIGNS: Reviewed in the electronic medical record and are stable. SKIN: Anicteric. HEENT: Shows no scleral icterus. NECK: Without lymphadenopathy or thyromegaly. LUNGS: Clear. HEART: Shows irregular, S1, S2. No murmur. ABDOMEN: Soft without focal masses or tenderness. Bowel sounds are present. No organomegaly is noted. EXTREMITIES: Do show edema. LABORATORY DATA: Reviewed. IMPRESSION: Esophageal obstruction secondary to food bolus. Plan is upper endoscopy. Risks and benefits of the procedure have been discussed with the patient who understands and agrees to proceed. MD ESTELA Gomez/LATANYA / [id number] [facility] C[facility]ERSanch[facility]
--- NOTE | 2025-03-02 16:09 | OP_ITS ---
DATE OF SERVICE: 02/14/2025 SURGEON: Jere Man MD INDICATIONS: Esophageal foreign body. PREOPERATIVE DIAGNOSIS: POSTOPERATIVE DIAGNOSIS: PROCEDURE PERFORMED: Upper endoscopy with removal of esophageal foreign body. ESTIMATED BLOOD LOSS: COMPLICATIONS: ANESTHESIA: Medications; general anesthesia. ASSISTANTS: SPECIMENS: DESCRIPTION OF PROCEDURE: A history and physical performed. The risks and benefits of the procedure were explained to the patient. An informed consent was obtained. The patient was placed in the left lateral decubitus position. The Olympus video gastroscope was introduced into the esophagus, stomach, and duodenum. Examination was performed. The scope was removed. He tolerated the procedure well and was taken to Recovery in stable condition. FINDINGS: Esophagus: There was a large impacted food bolus in the distal esophagus consistent with his recent history of having had steak and asparagus. The food bolus could not be easily pushed into the stomach on initial attempts and because of the patient's chronic anticoagulation, it was elected to remove it piecemeal fashion until it could be safely pushed into the stomach. This was tedious and took approximately 45 minutes. Once the food was in the stomach, a large portion of it was passed into the duodenum at the request of Dr. Rainey to avoid the risk of aspiration if he vomited post procedure. The stomach was decompressed. The distal esophagus showed esophagitis. No perforation or mass lesion was identified. The stomach was otherwise normal and the duodenum was normal. IMPRESSION: Esophageal food bolus. RECOMMENDATIONS: 1. Follow up as needed. 2. Begin omeprazole 20 mg daily. 3. Barium swallow in 4 to 5 weeks. MD ESTELA Gomez/RHETTL / [id number]
== END 2025-02-14 01:57 | disposition home or self-care (01) ==
LOC: HO.ED 02-14 00:11 → HO.SSS 02-14 00:24
PROVIDERS: Emergency Provider Emergency Medicine Emergency Medical Services; PCP Family Medicine; Visit Provider Internal Medicine Gastroenterology
PROC: 0DJ08ZZ Inspection of Upper Intestinal Tract, Via Natural or Artificial Opening Endoscopic (ICD-10-PCS; CPT 43235; principal; 2025-02-13 23:59)
DX: T18.128A Food in esophagus causing other injury, initial encounter (principal); R07.9 Chest pain, unspecified; E11.22 Type 2 diabetes mellitus with diabetic chronic kidney disease; I13.0 Hypertensive heart and chronic kidney disease with heart failure and stage 1 through stage 4 chronic kidney disease, or unspecified chronic kidney disease; N18.30 Chronic kidney disease, stage 3 unspecified; I50.32 Chronic diastolic (congestive) heart failure; E78.5 Hyperlipidemia, unspecified; I48.0 Paroxysmal atrial fibrillation; Z86.73 Personal history of transient ischemic attack (TIA), and cerebral infarction without residual deficits; Z79.01 Long term (current) use of anticoagulants; Z79.4 Long term (current) use of insulin; Z79.02 Long term (current) use of antithrombotics/antiplatelets; Z79.899 Other long term (current) drug therapy
CPT/HCPCS: 43247; 36415; 80053; 82943; 83690; 84484; 85025; 85610; 85730; 93005; 96374; 99285; J1100; J1610; J2003; J2405; J2704

== ENCOUNTER → 2025-02-13 21:43 | Outpatient (BNV) | payer MEDICARE, OTHER, SELFPAY | PROVIDERS: Emergency Provider Emergency Medicine Emergency Medical Services; PCP Family Medicine; Visit Provider Internal Medicine | DX: I48.92 Unspecified atrial flutter (principal); I44.0 Atrioventricular block, first degree | CPT/HCPCS: 93010 ==

== ENCOUNTER 2025-02-22 16:02 | Outpatient (REF) | payer MEDICARE, OTHER, SELFPAY ==
[2025-02-22 16:21] LABS: MANUAL DIFF FLAG NO
--- OUTSIDE RECORDS SUMMARY | 2025-02-22 16:25 | XMS_ITS | Patient Health Record ---
Author Organization [facility] Address [address] [place] [id number] Care Team Providers Care Satellite Tv Installer Name Role Phone Hesham GUZMAN, Artem Primary Care Provider Unavailab gonzalez Nas Grimes Unavailable [phone] Reason For Referral No Information Medications Medication SIG (Take, Route, Frequency, Duration) Notes Start Date End Date Status Irbesartan 300 MG Oral for 90 Active Trulicity 1.5 MG/0.5ML Subcutaneous for 28 Active Atorvastatin Calcium 80 MG take 1 tablet by mouth once daily Oral for 90 Active Bisoprolol-hydroCHLOROthia zide 5-6.25 MG TAKE 1 TABLET BY MOUTH ONCE DAILY Oral for 90 Active Clopidogrel Bisulfate 75 MG TAKE 1 TABLET BY MOUTH ONCE DAILY Oral for 90 Active amLODIPine Besylate 5 MG TAKE 1 TABLET B Y MOUTH ONCE DAILY Oral for 90 Active Aspir-81 Active Jardiance 25 MG take 1 tablet by kai th every morning Oral for 90 Active Toujeo SoloStar 300 UNIT/ML Subcutaneous for 39 Active Social History Tobacco Use: Social History Observation Description Date Details (start date - stop date) Former Smoker NA - NA Tobacco Use/Smoking Question Answer Notes Patient is a former smoker How long has it been since you last smoked? > 10 years Alcohol Screen Question Answer Notes Did you have a drink contain ing alcohol in the past year? Yes How often did you have a dri nk containing alcohol in the past year? 2 to 4 times a month (2 points) How many drinks did you have on a typical day when you were drinking in the past year? 3 or 4 drinks (1 point) Points 3 Interpretation Negative Section Notes: Nonsmoker; no sig alcohol Problems Problem Type SNOMED Code ICD Code Onset Dates Problem Status W/U Status Risk Notes Problem 089282972 Encounter for screening for malignant neoplasm of colon (Z12.11) Active confirmed Problem 679734592 Long-term use of aspirin therapy (Z79.82) Active confirmed Problem [id number] Pre-procedural examination (Z01.818) Active confirmed Plan Of Treatment Future Test Test Name Order Date COLONOSCOPY 11/11/2019 Insurance Providers Payer Name Payer Address Payer Phone Subscriber Number Group Number Insured Name Patient Relationship to Insured Coverage Start Date Coverage End Date MEDICARE OF [place] [address] [place] [address] [id number] AMELIA JOB Self - patient is the insured [facility] [address] [place] [phone] [id number] AMELIA JOB Self - patient is the insured Medical (General) History Medical History History ICD Code Stroke 01/2018 with a mild left hand weak ness Hx of kidney stones IDDM Hypertension Neg. colonoscopy in 2006 except hyperpla stic polyps Denies [place],Lung disease,renal disease Surgical History Surgery Date(Month/Year) Tonsillectomy Appy
[2025-02-22 17:09] LABS: Hematocrit 42.4 % (42.0-52.0); Hemoglobin 13.8 g/dl (14.0-18.0); Imm Gran Abs Auto 0.01 X10*3/uL (0.00-0.03); Imm Gran Pct Auto 0.2 % (0.0-0.4); Lymphocytes Absolute Auto 1.5 X10*3/uL (1.2-4.9); Mean Corpuscular HGB Conc 32.5 g/dl (31.0-36.0); Mean Corpuscular Hemoglobin 29.1 pg (27.0-33.0); Mean Corpuscular Volume 89.3 fL (80.0-98.0); NRBC Abs Auto 0.000 X10*3/uL (0.0-0.012); NRBC Pct Auto 0.0 /100WBC (0.0-0.2); Platelet Count 235 X10*3/uL (160-400); Red Blood Count 4.75 X10*6/uL (4.60-5.80); White Blood Count 6.0 X10*3/uL (4.8-10.8)
[2025-02-22 17:49] LABS: Anion Gap 13 (12-20); Blood Urea Nitrogen 18 mg/dL (9-16); Calcium 9.9 mg/dL (8.4-10.2); Carbon Dioxide 26 mmol/L (22-29); Chloride 100 mmol/L (96-108); Estimated Glomerular Filt Rate 51; Iron 59 mcg/dL (45-160); Magnesium 1.8 mg/dL (1.6-2.6); Percent Iron Saturation 26 % (15-50); Potassium 4.3 mmol/L (3.3-5.1); Sodium 135 mmol/L (135-145); Total Iron Binding Capacity 224 mcg/dL (228-428); Unsaturated Iron Binding 165 ug/dL
[2025-02-22 18:04] LABS: Folate 3.6 ng/mL (> or = 4.0); Vitamin B12 428 pg/mL (200-900)
== END 2025-02-22 16:03 | disposition home or self-care (01) ==
LOC: HO.LAB 16:02
PROVIDERS: Absent Provider Internal Medicine; PCP Family Medicine; Visit Provider Family Medicine
DX: I48.19 Other persistent atrial fibrillation (principal); I10 Essential (primary) hypertension; D64.9 Anemia, unspecified
CPT/HCPCS: 36415; 80048; 82607; 82746; 83540; 83735; 85025; 85652

== ENCOUNTER → 2025-03-11 11:56 | Day surgery (SDC) | payer MEDICARE, OTHER, SELFPAY ==
--- OUTSIDE RECORDS SUMMARY | 2025-02-24 09:57 | XMS_ITS | Patient Health Record ---
Author Organization [facility] Address [address] [place] [id number] Care Team Providers Care Information Security Director Name Role Phone Hesham GUZMAN, Artem Primary Care Provider Unavailab gonzalez Nas Grimes Unavailable [phone] Reason For Referral No Information Medications Medication [...] Problem Status W/U Status Risk Notes Problem [id number] Encounter for screening for malignant neoplasm of colon (Z12.11) Active confirmed Problem 608998488 Long-term use of aspirin therapy (Z79.82) Active confirmed Problem [id number] Pre-procedural examination (Z01.818) Active confirmed Plan Of Treatment Future Test Test Name Order Date COLONOSCOPY 11/11/2019 Insurance Providers Payer Name Payer Address Payer Phone Subscriber Number Group Number Insured Name Patient Relationship to Insured Coverage Start Date Coverage End Date [place]ARE OF [place] [address] [facility] [address] [phone] [id number] AMELIA JOB Self - patient is the insured [facility] [address] [place] [phone] [id number] AMELIA JOB Self - patient is the insured Medical (General) History Medical History History ICD Code Stroke 01/2018 with a mild left hand weak ness Hx of kidney stones IDDM Hypertension Neg. colonoscopy in 2006 except hyperpla stic polyps Denies [place],Lung disease,renal disease Surgical History Surgery Date(Month/Year) Tonsillectomy Appy
[2025-03-08 14:28] VITALS: BMI 33.4
--- NOTE | 2025-03-10 08:53 | HO.ANESPROP2 ---
HPI - Anesthesia Eval Consult details Narrative: 80yo M for Cardioversion Xarelto for afib PMFSH Active Problems Active Problems: All Active Problems Food bolus obstruction of intestine (Acute) Persistent atrial fibrillation (Acute) Chronic heart failure with preserved ejection fraction (Acute) Atrial fibrillation by electrocardiogram (Acute) Varicose veins of left lower extremity with inflammation (Acute) Raynaud disease (Acute) Varicose veins of right lower extremity with inflammation (Acute) PAD (peripheral artery disease) (Acute) CKD (chronic kidney disease) stage 3, GFR 30-59 ml/min (Acute) Obesity (BMI 30-39.9) (Acute) Diabetic polyneuropathy associated with type 2 diabetes mellitus (Acute) Dyslipidemia (Acute) Hypertension (Acute) Diabetic nephropathy associated with type 2 diabetes mellitus (Acute) correction (current) use of insulin (Acute) Diabetes type 2, controlled (Acute) Past Medical History Medical History (Updated 02/14/25 @ 00:11 by Chandana Hicks MD) Pleural effusion Persistent atrial fibrillation Atrial fibrillation by electrocardiogram Stroke (~2018) CKD (chronic kidney disease) stage 3, GFR 30-59 ml/min Obesity (BMI 30-39.9) Diabetic polyneuropathy associated with type 2 diabetes mellitus Dyslipidemia Hypertension Diabetic nephropathy associated with type 2 diabetes mellitus correction (current) 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 Family history of problems with anesthesia: No Surgical History Surgical History Hx of appendectomy Hx of tonsillectomy History of Problems with Anesthesia: No Social History Social History Household Members: Spouse Alcohol intake: never Comment: patient refusing alarms Patient Tobacco Use Status: Never used Tobacco Advance Directives Date on File: 01/01/25 service: No Meds Allergies Allergy/AdvReac Type Severity Reaction Status Date / Time animal dander Allergy Intermediate Itching Verified 03/08/25 14:25 environmental allergies Allergy Intermediate Sneezing Verified 03/08/25 14:25 Home Medications ?Medication ?Instructions ?Recorded ?Confirmed ?Last Taken ?Type bisoprolol 5 1 tab PO DAILY 07/06/20 03/08/25 01/01/25 History mg-hydrochlorothiazide 6.25 mg tablet rivaroxaban 20 mg tablet (Xarelto) 20 mg PO DAILY@1700 06/24/24 03/08/25 01/01/25 History atorvastatin 80 mg tablet 80 mg PO BEDTIME 01/02/25 03/08/25 Unknown History insulin glargine 100 unit/mL (3 30 unit subcut DAILY 01/02/25 03/08/25 01/01/25 History mL) subcutaneous pen (Basaglar KwikPen U-100 Insulin) Exam Height,Weight and Vital Signs: Height 6 ft 1 in Weight 114.759 kg Narrative Narrative: ECHO 12/2024 Conclusions: - 1. Technically limited study due to body habitus 2. Normal LV ejection fraction 55-60% with moderate left ventricular hypertrophy 3. Cardiac valvular Dopplers within normal limits but cardiac valves are poorly visualized 4. Significantly elevated right atrial pressures Assessment and Plan Assessment Anesthesia Assessment: Chart Reviewed Final Anesthetic Review Family History of Problems with Anesthesia: No History of Problems with Anesthesia: No
[2025-03-11 12:29] VITALS: BMI 31.3
[2025-03-11 12:46] VITALS: BP 150/71; PULSE 57; RESP 18; TEMP 36.1; O2SAT 98
[2025-03-11] MEDS: Lactated Ringers 1,000 ML 50 ML IVCONT (12:55)
[2025-03-11 12:57] LABS: Glucose, Whole Blood 94 mg/dL (60-115)
--- NOTE | 2025-03-11 13:15 | ECG_ITS ---
Test Reason : PREOP Blood Pressure : */* mmHG Vent. Rate : 52 BPM Atrial Rate : 52 BPM P-R Int : 170 ms QRS Dur : 88 ms QT Int : 444 ms P-R-T Axes : 20 21 11 degrees QTcB Int : 412 ms Sinus bradycardia Nonspecific T wave abnormality Abnormal ECG When compared with ECG of 13-Feb-2025 22:28, Sinus rhythm has replaced Atrial fibrillation Vent. rate has decreased by 28 bpm Nonspecific T wave abnormality has replaced inverted T waves in Anterolateral leads Referred By: No Woo Electronically Signed By: NO WOO
--- NOTE | 2025-03-11 13:31 | PC.NURSE ---
Pt in sinus when Dr Julio came to bedside. Pt canceled, iv removed catheter intact
== END ==
LOC: HO.SSS 11:57
PROVIDERS: PCP Family Medicine; Visit Provider Internal Medicine
DX: I49.8 Other specified cardiac arrhythmias (principal); Z53.8 Procedure and treatment not carried out for other reasons; Z79.01 Long term (current) use of anticoagulants; E11.9 Type 2 diabetes mellitus without complications; Z79.84 Long term (current) use of oral hypoglycemic drugs
CPT/HCPCS: 82947; 93005

== ENCOUNTER → 2025-03-11 13:15 | Outpatient (BNV) | payer MEDICARE, OTHER, SELFPAY | PROVIDERS: PCP Family Medicine; Visit Provider Internal Medicine | DX: R00.1 Bradycardia, unspecified (principal) | CPT/HCPCS: 93010 ==

== ENCOUNTER → 2025-03-22 12:39 | Outpatient (REF) | payer MEDICARE, OTHER, SELFPAY ==
--- NOTE | 2025-03-22 12:42 | HM_ITS ---
* Total monitoring time 3 days. * Underlying rhythm is sinus with an average rate of 63/Min. * Rare supraventricular ectopy. * Rare ventricular ectopy. * No significant pauses or high-grade AV blocks. * No patient markers or diary events. MTDD
--- OUTSIDE RECORDS SUMMARY | 2025-03-22 13:25 | XMS_ITS | Patient Health Record ---
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 Role Phone Hesham (RETIRED) Artem GUZMAN Primary Care Provider Unavailable Nas Grimes Unavailable [phone] Reason For Referral No Information Medications Medication [...] Problem Status W/U Status Risk Notes Problem [id number] Encounter for screening for malignant neoplasm of colon (Z12.11) Active confirmed Problem [id number] Long-term use of aspirin therapy (Z79.82) Active confirmed Problem [id number] Pre-procedural examination (Z01.818) Active confirmed Plan Of Treatment Future Test Test Name Order Date COLONOSCOPY 11/11/2019 Insurance Providers Payer Name Payer Address Payer Phone Subscriber Number Group Number Insured Name Patient Relationship to Insured Coverage Start Date Coverage End Date MED[place]ARE OF [place] [address] [place] [address] [id number] AMELIA JOB Self - patient is the insured [facility] [address] [place] [phone] [id number] AMELIA JOB Self - patient is the insured Medical (General) History Medical History History ICD Code Stroke 01/2018 with a mild left hand weak ness Hx of kidney stones IDDM Hypertension Neg. colonoscopy in 2006 except hyperpla stic polyps Denies CT,Lung disease,renal disease Surgical History Surgery Date(Month/Year) Tonsillectomy Appy
== END ==
LOC: HO.CARD 12:39
PROVIDERS: PCP Family Medicine; Visit Provider Internal Medicine
DX: I48.19 Other persistent atrial fibrillation (principal)
CPT/HCPCS: 93242

== ENCOUNTER → 2025-03-22 12:42 | Outpatient (BNV) | payer MEDICARE, OTHER, SELFPAY | PROVIDERS: PCP Family Medicine; Visit Provider Internal Medicine | DX: I47.10 Supraventricular tachycardia, unspecified (principal); I49.3 Ventricular premature depolarization | CPT/HCPCS: 93244 ==

== ENCOUNTER 2025-04-10 17:10 | Emergency (ER) | payer MEDICARE, OTHER, SELFPAY ==
[2025-04-10 17:55] VITALS: BP 164/72; PULSE 63; RESP 17; TEMP 36.2; O2SAT 100; BMI 31.3
--- NOTE | 2025-04-10 18:17 | ED_ITS ---
HPI - General Adult General Chief complaint: Anxiety Stated complaint: panic and anxiety attack Time Seen by Provider: 04/10/25 23:06 Source: patient Mode of arrival: ambulatory Limitations: no limitations History of Present Illness ED Provider: Steve ARIAS HPI narrative: The patient is a 80-year-old male presenting to the ED reporting 2 months ago he had a falling out with his adult age son and his son has refused to speak with him or interact with him in any way since that time. The patient denies any history of anxiety or depression, however since the fall out 2 months ago he has been experiencing worsening anxiety, panic attacks, and depression surrounding the situation. The patient reports tonight his was speaking on the phone with his son about positive events going on in his life but still refused to speak to the patient about these things, patient became emotionally distraught, highly anxious, and presents to the ED for evaluation. The patient denies any acute somatic complaint, denies chest pain, shortness of breath, abdominal pain, nausea, vomiting, fever/chills, headache, focal neurological deficit, or recent trauma. The patient denies associated suicidal or homicidal ideation, denies auditory or visual hallucinations. The patient does not have any outpatient psychiatry care established, presents to the ED requesting anxiolysis and consultation. Related Data Home Medications ?Medication ?Instructions ?Recorded ?Confirmed bisoprolol 5 1 tab PO DAILY 07/06/2002/22 mg-hydrochlorothiazide 6.25 mg tablet rivaroxaban 20 mg tablet (Xarelto) 20 mg PO DAILY@1700 06/24/24 03/08/25 atorvastatin 80 mg tablet 80 mg PO BEDTIME 01/02/25 insulin glargine 100 unit/mL (3 30 unit subcut DAILY 0 01/02/25 03/11/25 mL) subcutaneous pen (Basaglar KwikPen U-100 Insulin) Previous Rx's ?Medication ?Instructions ?Recorded blood sugar diagnostic (FreeStyle #300 ea 01/31/21 Lite Strips) lancets 28 gauge (FreeStyle #300 ea 01/31/21 Lancets) pen needle, diabetic 32 gauge x #100 ea 01/31/21 (BD Celina 2nd Gen Pen Needle) amiodarone 200 mg tablet 200 mg PO DAILY #30 tabs bumetanide 1 mg tablet 1 mg PO DAILY #30 tabs 01/10 primidone 50 mg tablet 50 mg PO BID 90 days #180 ta bs 03/08/25 trazodone 50 mg tablet 50 mg PO BEDTIME PRN sleep # 30 tabs 03/25/25 meloxicam 15 mg tablet 15 mg PO DAILY #7 tabs 03/30 Allergies Allergy/AdvReac Type Severity Reaction Status Date / Time animal dander Allergy Intermediate Itching Verified 04/10/25 17:57 environmental allergies Allergy Intermediate Sneezing Verified 04/10/25 17:57 Review of Systems 2 Review of Systems: Yes all other systems are reviewed and are negative COUNT INCLUDES THE [facility] Past Medical History Medical History (Updated 04/11/25 @ 00:26 by Steve Salomon PA-C) Pleural effusion Persistent atrial fibrillation Atrial fibrillation by electrocardiogram Stroke (~2018) CKD (chronic kidney disease) stage 3, GFR 30-59 ml/min Obesity (BMI 30-39.9) Diabetic polyneuropathy associated with type 2 diabetes mellitus Dyslipidemia Hypertension Diabetic nephropathy associated with type 2 diabetes mellitus long-term (current) use of insulin Diabetes type 2, controlled Surgical History Hx of appendectomy Hx of tonsillectomy Family History Family History Father History of heart attack Mother No problems noted. Social History Social History Household Members: Spouse Alcohol intake: never Comment: patient refusing alarms Patient Tobacco Use Status: Never used Tobacco Smoked in Last 30 Days: No Use of substances other than those prescribed or required for medical reasons: No Advance Directives: Yes Advance Directives on File: Yes Advance Directives Date on File: 01/01/25 service: No Physical Exam ED Vital Signs: Vital Signs - 24 hr 04/10/25 17:55 04/10/25 21:47 04/10/25 23:07 Temperature 97.1 F 96.8 F 97.0 F Pulse Rate 63 63 60 Respiratory Rate 17 18 17 Blood Pressure 164/72 H 176/76 H 166/78 H Pulse Oximetry 100 97 Oxygen Delivery Method Room Air Room Air BMI result Body Mass Index 31.3 CONSTITUTIONAL: The patient appears non-toxic, well nourished and in no acute distress. Vital signs as documented. HEAD: Atraumatic, normocephalic. EYES: EOMs grossly intact, pupils equal, conjunctiva clear, no exudate. ENT: Nares patent, no discharge. Airway patent, no audible stridor, visible mucosa is pink and moist without noted lesions. NECK: Trachea is midline, no obvious masses or gross abnormalities. CHEST: Symmetric movement, normal appearance. LUNGS: LS present and CTAB, no w/r/r. Non-labored work of breathing. CARDIAC: Regular Rhythm, S1/S2 appreciated, no murmurs, rubs or gallops. ABDOMEN: Abdomen soft and non-tender x4 quadrants, no palpable masses or organomegaly. : Deferred. EXTREMITIES: Normal tone, moves all extremities spontaneously without reported pain. No obvious acute injury or deformity noted. NEURO: Alert and oriented x3, CN II-XII appear grossly intact. Cerebellar Functioning grossly intact. No obvious sensory or motor deficits. Speech clear and appropriate. PSYCH: normal affect, appropriate eye contact, fluid speech, with appropriate response to questioning. No reported suicidality or homicidality. SKIN: Warm, dry, color appropriate, normal turgor. No rashes noted. Course Course Course Narrative: Medical screening exam performed. Please refer to detailed history, exam, evaluation, and management by primary provider. Increased anxiety due to stressors at home. No SI or HI. JS Medications Administered Discontinued Medications Generic Name Dose Route Start Last Admin Trade Name Freq PRN Reason Stop Dose Admin Lorazepam 1 mg 04/11/25 00:18 04/11/25 00:28 Lorazepam 1 Mg Tablet PO 04/11/25 00:19 1 mg ONCE ONE Administration Medical Decision Making Medical Decision Making [facility] Narrative: 12:21 AM 04/11/2025 (Mario ARIAS): The patient is a 80-year-old male presenting to the ED for evaluation of worsening anxiety, depression, and panic attacks since a follow up with his son 2 months ago, symptoms escalated this evening prompting ED evaluation. The patient denies any acute somatic complaint or associated somatic symptoms. The patient denies suicidal or homicidal ideation, no auditory or visual hallucinations. The patient's exam is unremarkable, laboratory evaluation shows no evidence of leukocytosis, significant anemia, electrolyte abnormality, JOHNATHON, or abnormal liver function tests. The patient's case has been discussed with the care team who will see the patient and provide outpatient follow up services/resources. The patient will be treated with a single oral dose of 1 mg Ativan while in the ED. patient has been advised to follow up with PCP or psychiatrist for prescribing of additional anxiolytics as indicated. 1:13 AM 04/11/2025 (Mario ARIAS): Patient was seen by crisis/care team, scheduled for outpatient follow up. Patient will be discharged as described above. Admission/Observation Consideration of admission/observation: Escalation of care including admission/observation considered Lab Data MDM Lab Attestation statement: I reviewed the patient's lab results. 04/10/25 18:18 04/10/25 18:18 Labs: Lab Results 04/10/25 Range/Units 18:18 WBC 5.9 (4.8-10.8) X10*3/uL RBC 4.71 (4.60-5.80) X10*6/uL Hgb 13.7 L (14.0-18.0) g/dl Hct 40.7 L (42.0-52.0) % MCV 86.4 (80.0-98.0) fL MCH 29.1 (27.0-33.0) pg MCHC 33.7 (31.0-36.0) g/dl RDW 15.9 (11.0-16.0) % Plt Count 209 (160-400) X10*3/uL MPV 9.0 L (9.4-12.4) fL Immature Gran % (Auto) 0.2 (0.0-0.4) % Neut % (Auto) 58.8 (45-73) % Lymph % (Auto) 25.9 (20-40) % [place] % (Auto) 11.4 H (2-11) % Eos % (Auto) 3.2 (0-4) % Baso % (Auto) 0.5 (0-2) % Lymph # (Auto) 1.5 (1.2-4.9) X10*3/uL [place] # (Auto) 0.7 (0.1-1.2) X10*3/uL Eos # (Auto) 0.2 (0.0-0.4) X10*3/uL Baso # (Auto) 0.0 (0.0-0.2) X10*3/uL Abs Immat Gran (auto) 0.01 (0.00-0.03) X10*3/uL Absolute Neuts (auto) 3.5 (2.0-8.3) x10*3/uL Absolute Nucleated RBC 0.000 (0.0-0.012) X10*3/uL Nucleated RBC % (auto) 0.0 (0.0-0.2) /100WBC Sodium 137 (135-145) mmol/L Potassium 4.5 (3.3-5.1) mmol/L Chloride 102 (96-108) mmol/L Carbon Dioxide 26 (22-29) mmol/L Anion Gap 14 (12-20) BUN 13 (9-16) mg/dL Creatinine 1.05 (0.5-1.4) mg/dL Estim Creat Clear Calc 74.5 Estimated GFR > 60 Random Glucose 173 H (60-115) mg/dL Calcium 9.5 (8.4-10.2) mg/dL Magnesium 1.8 (1.6-2.6) mg/dL Total Bilirubin 0.4 (0.0-1.0) mg/dL AST 32 (5-37) U/L ALT 27 (0-40) U/L Alkaline Phosphatase 78 (39-117) U/L Total Protein 7.0 (6.5-8.0) g/dL Albumin 4.0 (3.5-5.0) g/dL Discharge Plan Discharge Clinical Impression: Acute anxiety Patient Disposition: Home, Self-Care Instructions: Panic Disorder (ED), Anxiety (ED) Additional Instructions: Thank you for choosing [facility]'s Emergency Department for your care today. Thankfully your laboratory evaluation and exam today shows no evidence of physical/somatic abnormalities as result of your increased anxiety and stress. At this time there is no indication for admission to the hospital or continued ED observation, and it is safe to discharge you home. Please follow up with the outpatient psychiatry resources provided you by our psychiatry care team. Please follow up with your primary care provider and/or the provided outpatient psychiatry provider to discuss indications for additional prescription of anxiolytic medications. Please follow up with your primary care physician for re-evaluation, additional management of your symptoms, and continued preventative care. If you do not have a primary care physician, please call the [facility] at [phone] to establish a new primary care physician. While waiting to establish your new primary care physician, you can call our Walk-in [facility] at [phone] for non-emergency needs. Please return to the emergency department if you develop a severe or sudden change in your symptoms, thoughts of harming yourself or others, a fever over 100.4 that does not improve with Tylenol or Ibuprofen, recurrent vomiting, or any other new or worsening symptoms or concerns. Prescriptions: No Action primidone 50 mg tablet 50 mg PO BID 90 Days Qty: 180 1RF trazodone 50 mg tablet 50 mg PO BEDTIME PRN (Reason: sleep) Qty: 30 0RF meloxicam 15 mg tablet 15 mg PO DAILY Qty: 7 0RF insulin glargine [Basaglar KwikPen U-100 Insulin] 100 unit/mL (3 mL) insulin pen 30 unit subcut DAILY atorvastatin 80 mg tablet 80 mg PO BEDTIME bumetanide 1 mg Tablet 1 mg PO DAILY Qty: 30 0RF Protocol: Hold for SBP< HOLD for SBP < : 90 amiodarone 200 mg tablet 200 mg PO DAILY Qty: 30 0RF bisoprolol-hydrochlorothiazide 5-6.25 mg tablet 1 tab PO DAILY (DME) lancets [FreeStyle Lancets] 28 gauge misc See Rx Instructions .ROUTE .MEDSUPPLY Qty: 300 3RF Rx Instructions: 3 times a day (DME) FreeStyle Lite Strips Strip See Rx Instructions .ROUTE .MEDSUPPLY Qty: 300 2RF Rx Instructions: 3 times a day (DME) pen needle, diabetic [BD Celina 2nd Gen Pen Needle] 32 gauge x 5/32 needle See Rx Instructions .MEDSUPPLY Qty: 100 4RF Rx Instructions: once a day Xarelto 20 mg tablet 20 mg PO DAILY@1700 Rx Instructions: must administer with evening meal Referrals: Physician,Unknown J [Primary Care Provider, Medical] Clinical Impression: Acute anxiety Print Language: Montserratian
--- NOTE | 2025-04-10 18:17 | ECG_ITS ---
Test Reason : cp Blood Pressure : */* mmHG Vent. Rate : 61 BPM Atrial Rate : 61 BPM P-R Int : 186 ms QRS Dur : 86 ms QT Int : 426 ms P-R-T Axes : 30 36 35 degrees QTcB Int : 428 ms Normal sinus rhythm Nonspecific T wave abnormality Abnormal ECG When compared with ECG of 11-Mar-2025 13:22, No significant change was found Referred By: Cristian Talbot Electronically Signed By: PAOLO TIPTON MD
[2025-04-10 18:22] LABS: MANUAL DIFF FLAG NO
[2025-04-10 18:23] LABS: Hematocrit 40.7 % (42.0-52.0); Hemoglobin 13.7 g/dl (14.0-18.0); Imm Gran Abs Auto 0.01 X10*3/uL (0.00-0.03); Imm Gran Pct Auto 0.2 % (0.0-0.4); Lymphocytes Absolute Auto 1.5 X10*3/uL (1.2-4.9); Mean Corpuscular HGB Conc 33.7 g/dl (31.0-36.0); Mean Corpuscular Hemoglobin 29.1 pg (27.0-33.0); Mean Corpuscular Volume 86.4 fL (80.0-98.0); NRBC Abs Auto 0.000 X10*3/uL (0.0-0.012); NRBC Pct Auto 0.0 /100WBC (0.0-0.2); Platelet Count 209 X10*3/uL (160-400); Red Blood Count 4.71 X10*6/uL (4.60-5.80); White Blood Count 5.9 X10*3/uL (4.8-10.8)
[2025-04-10 18:43] LABS: Alanine Aminotransferase 27 U/L (0-40); Albumin Level 4.0 g/dL (3.5-5.0); Alkaline Phosphatase 78 U/L (39-117); Anion Gap 14 (12-20); Aspartate Amino Transferase 32 U/L (5-37); Blood Urea Nitrogen 13 mg/dL (9-16); Calcium 9.5 mg/dL (8.4-10.2); Carbon Dioxide 26 mmol/L (22-29); Chloride 102 mmol/L (96-108); Creatinine Clr Calc Pharmacy 74.5; Estimated Glomerular Filt Rate > 60; Magnesium 1.8 mg/dL (1.6-2.6); Potassium 4.5 mmol/L (3.3-5.1); Sodium 137 mmol/L (135-145); Total Protein 7.0 g/dL (6.5-8.0)
[2025-04-10 21:47] VITALS: BP 176/76; PULSE 63; RESP 18; TEMP 36; O2SAT 97
--- OUTSIDE RECORDS SUMMARY | 2025-04-10 22:19 | XMS_ITS | Patient Health Record ---
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 (RETIRED) Artem GUZMAN Primary Care Provider Unavailable Nas Grimes Unavailable [phone] Reason For Referral No Information Medications Medication [...] Problem Status W/U Status Risk Notes Problem [id number] Encounter for screening for malignant neoplasm of colon (Z12.11) Active confirmed Problem 851228405 Long-term use of aspirin therapy (Z79.82) Active confirmed Problem [id number] Pre-procedural examination (Z01.818) Active confirmed Plan Of Treatment Future Test Test Name Order Date COLONOSCOPY 11/11/2019 Insurance Providers Payer Name Payer Address Payer Phone Subscriber Number Group Number Insured Name Patient Relationship to Insured Coverage Start Date Coverage End Date [place] [address] [place] [address] [phone] [id number] AMELIA JOB Self - patient is the insured [facility] [address] [place] [address] [id number] AMELIA JOB Self - patient is the insured Medical (General) History Medical History History ICD Code Stroke 01/2018 with a mild left hand weak ness Hx of kidney stones IDDM Hypertension Neg. colonoscopy in 2006 except hyperpla stic polyps Denies PR,Lung disease,renal disease Surgical History Surgery Date(Month/Year) Tonsillectomy Appy
[2025-04-10 23:07] VITALS: BP 166/78; PULSE 60; RESP 17; TEMP 36.1
[2025-04-11 01:37] VITALS: BP 166/78; PULSE 60; RESP 17; TEMP 36.1
--- NOTE | 2025-04-11 15:29 | MHC.CARE ---
RAD completed and emailed [facility] referral for this pt. Will follow up tomorrow
== END 2025-04-11 01:38 | disposition home or self-care (01) ==
PROVIDERS: Emergency Provider Emergency Medicine
DX: F41.9 Anxiety disorder, unspecified (principal); R07.9 Chest pain, unspecified; I12.9 Hypertensive chronic kidney disease with stage 1 through stage 4 chronic kidney disease, or unspecified chronic kidney disease; E11.22 Type 2 diabetes mellitus with diabetic chronic kidney disease; N18.9 Chronic kidney disease, unspecified
CPT/HCPCS: 36415; 80053; 83735; 85025; 93005; 99284; S9485

== ENCOUNTER → 2025-04-10 18:17 | Outpatient (BNV) | payer MEDICARE, OTHER, SELFPAY | PROVIDERS: Emergency Provider Emergency Medicine; Visit Provider Internal Medicine Cardiovascular Disease | DX: R94.31 Abnormal electrocardiogram [ECG] [EKG] (principal); R07.9 Chest pain, unspecified | CPT/HCPCS: 93010 ==

== ENCOUNTER 2025-04-15 11:12 | Outpatient (AMB) | payer MEDICARE, OTHER, SELFPAY ==
--- NOTE | 2025-04-15 10:59 | A.OFFPC_ITS ---
Vital Signs 04/15/25 11:02 Height 6 ft 1 in Weight 107.955 kg BMI 31.4 BP 122/58 L Blood Pressure Location Lt brachial Position Sitting Respiration 16 Pulse 64 Pulse Source Pulse Oximeter Temp 97.4 F Pulse Oximetry (%) 99 Intake Visit Reasons: Routine Dr Ribeiro PT Will Need Dr Smallwood Channeler Runner Required: No Accompanied by: Self / Same As Patient Allergies animal dander Allergy (Intermediate, Verified 04/15/25 10:59) Itching environmental allergies Allergy (Intermediate, Verified 04/15/25 10:59) Sneezing Tobacco use date assessed: 04/15/25 HPI HPI Comments History of Present Illness Details 72-year-old male with history of CKD sta ge 3, diabetic polyneuropathy, dyslipidemia, hypertension, permanent atrial fibrillation, heart failure with preserved ejection fraction, PAD, with 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 HFpEF-euvolemic. Compliant with Bumex. Not on any hormonal modulators Hypertension-blood pressure 122/58. Compliant with bisoprolol- hydrochlorothiazide, Bumex Permanent atrial fibrillation-on Eliquis for anticoagulation, denies any bleeding episodes. Amiodarone, bisoprolol Type 2 diabetes-last A1c 7.7%. On Basaglar 30 units daily Hyperlipidemia-atorvastatin AUD- in early remission Concerns: Presented to the [facility] ED on due to anxiety and panic. He tells me that he had been a closet drinker for years and years and recently stopped during hospitalization in December for heart failure which he states scared him. He has had 104 days of sobriety. Since then, he states that he has been experiencing lows. He has never had any known issues for mental health though it is possible that he was masking this/coping with this with his alcohol use. States when he was drinking he was always up be and was able to function in society though would be somewhat dazed and potentially inappropriate verbally at times. Since then, his mood has changed. He states if he is distracted he will be okay but as soon as he gets back home he feels down. As a result of this, he has had a strained relationship with his children. One of his children has been very understanding but the other 2 had been very difficult and cold stating he needed counseling. He is now waiting for an appointment from [facility]. He states that the strained relationship with his children has been causing increased depression as well as significant anxiety. Following an interaction with his son where he told him that he was going to be going to counseling, his son responded in a very cold way stating that maybe they can talk in months. He ultimately began experiencing a panic attack and presented to the ED where he was given Ativan with some effect ultimately but was not discharged with any medications. He denies any SI/HI. PHQ-9 score 11, JOSEPHINE-7 score 12 ROS: General: No fevers, malaise, unintentional weight loss HEENT: No blurred vision, diplopia. No sore throat, nasal congestion, rhinorrhea, sinus pain, ear pain Cardiovascular: No chest pain, palpitations, or leg edema Respiratory: No shortness of breath, wheezing, cough GI: No abdominal pain, nausea, vomiting, diarrhea, constipation, melena, hematochezia : No dysuria, hematuria, increased urinary frequency, decreased urinary output MSK: No myalgia, back pain Neuro: No headaches, weakness, paresthesias Psych: see hpi Skin: No rashes or lesions EXAM: Constitutional - Awake and Alert, No apparent distress Eyes - PERRL Cardiovascular - S1S2, RRR, No edema Respiratory - Normal lung expansion, Normal respiratory effort, No respiratory distress, CTA bilaterally Extremities - no calf tenderness bilaterally, no swelling Skin - Warm/Dry Neurological - Alert & oriented x3 Psychological - Appropriate affect though anxious appearing at times [facility] Medical History (Updated 04/15/25 @ 19:44 by HUGO Philip) Major depressive disorder Pleural effusion Persistent atrial fibrillation Atrial fibrillation by electrocardiogram Stroke (~2018) CKD (chronic kidney disease) stage 3, GFR 30-59 ml/min Obesity (BMI 30-39.9) Diabetic polyneuropathy associated with type 2 diabetes mellitus Dyslipidemia Hypertension Diabetic nephropathy associated with type 2 diabetes mellitus care home (current) use of insulin Diabetes type 2, controlled Surgical History (Updated 04/14/25 @ 15:54 by Ivet Preston) History of colonoscopy (~02/02/20) Hx of appendectomy Hx of tonsillectomy Family History Father History of heart attack Mother No problems noted. Social History Household Members: Spouse Alcohol intake: never Comment: patient refusing alarms Patient Tobacco Use Status: Never used Tobacco e-Cigarette/Vaping Use: Never Used Advance Directives Date on File: 01/01/25 service: No Questionnaire PHQ-9 Over the last 2 weeks, how often have you been bothered by any of the following problems? 1. Little interest or pleasure in doing things: several days 2. Feeling down, depressed, or hopeless: more than half the days 3. Trouble falling or staying asleep, or sleeping too much: nearly every day 4. Feeling tired or having little energy: several days 5. Poor appetite or overeating: several days 6. Feeling bad about yourself - or that you are a failure or have let yourself or your family down: more than half the days 7. Trouble concentrating on things, such as reading the newspaper or watching television: not at all 8. Moving or speaking so slowly that other people could have noticed. Or the opposite - being so fidgety or restless that you have been moving around a lot more than usual: several days 9. Thoughts that you would be better off or of hurting yourself in some way: not at all Total score: 11 Depression Screening Interpretation: Positive Depression Screening Done: Yes 80982 - PHQ-9 Billing: Yes Source: Developed by Drs. Nas Patricio, Joann Harris, Ryan Palacios and colleagues, with an educational kolton from [employer]. Thrive Questionnaire Date Thrive assessed: 04/15/25 I am a: Patient What is your living situation today?: I have a steady place to live Within the past 12 months, did the food you bought not last and you didn't have the money to get more?: Never true Within the past 12 months, did you worry whether your food would run out before you got money to buy more?: Never true Do you have trouble paying for medicines?: No Do you have trouble getting transportation to medical appointments?: No Do you have trouble paying your heating and electricity bill?: No Do you have trouble taking care of your child, family member or friend?: No Do you have trouble with day-to-day activities such as bathing, preparing meals, shopping, managing finances, etc.?: No Are you currently unemployed and looking for a job?: No THRIVE Score: 0 AUDIT C Alcohol Use Questionnaire (AUDIT-C) 1. How often do you have a drink containing alcohol?: Never Total Score: 0 JOSEPHINE-7 AMB Questionnaire JOSEPHINE-7 Date JOSEPHINE - 7 assessed: 04/15/25 Feeling nervous, anxious, or on edge: 2 = More than half the days Not being able to stop or control worryin = More than half the days Worrying too much about different things: 2 = More than half the days Trouble relaxin = More than half the days Being so restless that it is hard to sit still: 1 = Several days Becoming easily annoyed or irritable: 1 = Several days Feeling afraid as if something awful might happen: 2 = More than half the days Total JOSEPHINE-7 score (0-4 normal; 5-9 mild; 10-14 moderate; 15-21 severe): 12 Source: Developed by Drs. Nas Patricio, Joann Harris, Ryan Palacios and colleagues, with an educational kolton from [employer]. JOSEPHINE-7 Assessment Billing JOSEPHINE-7 Assessment Tool: JOSEPHINE-7 Assessment 56525 Physical exam (Primary Care) Vital Signs: Last Vital Signs Temp 97.4 F 04/15/25 11:02 Pulse 64 04/15/25 11:02 Resp 16 04/15/25 11:02 BP 122/58 L 04/15/25 11:02 Pulse Ox 99 04/15/25 11:02 BMI result Body Mass Index 31.4 Tobacco/Smoking Status: Tobacco use Status Tobacco use date assessed 04/15/25 04/15/25 11:09 Patient Tobacco Use Status Never used Tobacco 04/15/25 11:09 e-Cigarette/Vaping Use Never Used 04/15/25 11:09 PHQ-9: PHQ-9 Score PHQ-9: Total score 11 04/15/25 14:22 Depression Screening Interpretation: Positive Thrive Assessment: Date of Thrive Assessment Date Thrive assessed 04/15/25 04/15/25 11:51 Coding Level of Care Code New Pt Level 4 (48898) Complex EM visit Add On G2211 Diagnoses Diabetes type 2, controlled E11.9 Hypertension I10 Persistent atrial fibrillation I48.19 Chronic heart failure with preserved ejection fraction I50.32 Major depressive disorder F32.9 Panic disorder F41.0 Additional Codes JOSEPHINE-7 Assessment Billing - JOSEPHINE-7 Assessment Tool: JOSEPHINE-7 Assessment 37849 ([id number]) PHQ-9 - 51592 - PHQ-9 Billing: Yes ([id number]) Assessment & Plan Assessment & Plan (1) Diabetes type 2, controlled: Code(s): E11.9 - Type 2 diabetes mellitus without complications Category: Medical Plan: Hemoglobin A1c ordered. Continue Basaglar. Check fasting glucose daily. Annual eye exams and foot exams. Follow diabetic diet (2) Hypertension: Code(s): I10 - Essential (primary) hypertension Category: Medical Plan: Controlled. Continue current therapies (3) Persistent atrial fibrillation: Code(s): I48.19 - Other persistent atrial fibrillation Category: Medical Plan: Rate controlled. Continue Xarelto. Continue amiodarone and bisoprolol (4) Chronic heart failure with preserved ejection fraction: Code(s): I50.32 - Chronic diastolic (congestive) heart failure Category: Medical Plan: Clinically euvolemic. Continue Bumex and follow up with Cardiology as scheduled (5) Major depressive disorder: Code(s): F32.9 - Major depressive disorder, single episode, unspecified Category: Medical Plan: Initiate sertraline 50 mg daily. Counseled on side effects including black box warning. Follow-up with counselor scheduled. Follow up in 1 month (6) Panic disorder: Code(s): F41.0 - Panic disorder [episodic paroxysmal anxiety] Category: Medical Plan: Given prescription for alprazolam to use only as needed for panic attacks. Advised that this should be used sparingly and hopefully will be last needed once the sertraline takes effect. Follow-up with counselor Plan Follow-up in 1 month Orders: Orders Hemoglobin A1c Today E11.9 - Type 2 diabetes mellitus without complications, E78.5 - Hyperlipidemia, unspecified, I10 - Essential (primary) hypertension Microalbumin, Random (w Creat) Today E11.9 - Type 2 diabetes mellitus without complications, E78.5 - Hyperlipidemia, unspecified, I10 - Essential (primary) hypertension Lipid Panel Today E11.9 - Type 2 diabetes mellitus without complications, E78.5 - Hyperlipidemia, unspecified, I10 - Essential (primary) hypertension TSH reflex Free T4 Today E11.9 - Type 2 diabetes mellitus without complications Medications: New alprazolam 0.5 mg PO BID PRN 60 tabs 0RF anxiety sertraline Take 1/2 tab daily x 1 week, then take 1 tab daily 50 mg PO DAILY 90 tabs 0RF Patient Instructions: Initiate sertraline (Zoloft)-take 1/2 tab (25 mg) daily or at bedtime x1 week, then increase to 50 mg daily. This may take 3-4 weeks to feel the full effects so we will follow-up in 1 month Use alprazolam (Xanax) ONLY as needed for panic, not baseline anxiety. This medication may make you drowsy, do not drive while on the medication Continue using trazodone as needed for insomnia Schedule with counselor/therapist once able. Should symptoms worsen or if you develop any thoughts of hurting herself or hurting anyone else, please present to the emergency department
[2025-04-15 11:02] VITALS: BP 122/58; PULSE 64; RESP 16; TEMP 36.3; O2SAT 99; BMI 31.4
--- OUTSIDE RECORDS SUMMARY | 2025-04-15 11:19 | XMS_ITS | Patient Health Record ---
Author Organization [facility] Address [address] [place] [id number] Care Team Providers Care Glue Maker Bone Name Role Phone Hesham (RETIRED) Artem GUZMAN Primary Care Provider Unavailable Nas Grimes Unavailable [phone] Reason For Referral No Information Medications Medication [...] Problem Status W/U Status Risk Notes Problem [id number] Encounter for screening for malignant neoplasm of colon (Z12.11) Active confirmed Problem 716128802 Long-term use of aspirin therapy (Z79.82) Active confirmed Problem [id number] Pre-procedural examination (Z01.818) Active confirmed Plan Of Treatment Future Test Test Name Order Date COLONOSCOPY 11/11/2019 Insurance Providers Payer Name Payer Address Payer Phone Subscriber Number Group Number Insured Name Patient Relationship to Insured Coverage Start Date Coverage End Date MED[place]ARE OF [place] [address] [place] [address] [id number] AMELIA JOB Self - patient is the insured [facility] [address] [place] [phone] [id number] AMELIA JOB Self - patient is the insured Medical (General) History Medical History History ICD Code Stroke 01/2018 with a mild left hand weak ness Hx of kidney stones IDDM Hypertension Neg. colonoscopy in 2006 except hyperpla stic polyps Denies [place],Lung disease,renal disease Surgical History Surgery Date(Month/Year) Tonsillectomy Appy
== END 2025-04-15 11:54 | disposition home or self-care (01) ==
LOC: HO.HMCHD 11:12
PROVIDERS: Visit Provider Physician Assistant
DX: E11.9 Type 2 diabetes mellitus without complications (principal); I10 Essential (primary) hypertension; I48.19 Other persistent atrial fibrillation; I50.32 Chronic diastolic (congestive) heart failure; F32.9 Major depressive disorder, single episode, unspecified; F41.0 Panic disorder [episodic paroxysmal anxiety]

== ENCOUNTER → 2025-04-15 11:12 | Outpatient (BNVA) | payer MEDICARE, OTHER, SELFPAY | PROVIDERS: Visit Provider Physician Assistant | DX: E11.9 Type 2 diabetes mellitus without complications (principal); I48.19 Other persistent atrial fibrillation; I11.0 Hypertensive heart disease with heart failure; I50.32 Chronic diastolic (congestive) heart failure; F32.9 Major depressive disorder, single episode, unspecified; F41.0 Panic disorder [episodic paroxysmal anxiety]; Z79.01 Long term (current) use of anticoagulants; Z79.899 Other long term (current) drug therapy; Z13.31 Encounter for screening for depression; Z13.39 Encounter for screening examination for other mental health and behavioral disorders | CPT/HCPCS: 96127; 99202 ==

== ENCOUNTER 2025-04-20 09:06 | Outpatient (REF) | payer MEDICARE, OTHER, SELFPAY ==
--- OUTSIDE RECORDS SUMMARY | 2025-04-20 09:34 | XMS_ITS | Patient Health Record ---
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 Name Role Phone Hesham (RETIRED) Artem GUZMAN Primary Care Provider Unavailable Nas Grimes Unavailable [phone] Reason For Referral No Information Medications Medication [...] Problem Status W/U Status Risk Notes Problem [id number] Encounter for screening for malignant neoplasm of colon (Z12.11) Active confirmed Problem 223462006 Long-term use of aspirin therapy (Z79.82) Active confirmed Problem [id number] Pre-procedural examination (Z01.818) Active confirmed Plan Of Treatment Future Test Test Name Order Date COLONOSCOPY 11/11/2019 Insurance Providers Payer Name Payer Address Payer Phone Subscriber Number Group Number Insured Name Patient Relationship to Insured Coverage Start Date Coverage End Date [place]ARE OF [place] [address] [place] [address] [id number] AMELIA JOB Self - patient is the insured [facility] [address] [place] [phone] [id number] AMELIA JOB Self - patient is the insured Medical (General) History Medical History History ICD Code Stroke 01/2018 with a mild left hand weak ness Hx of kidney stones IDDM Hypertension Neg. colonoscopy in 2006 except hyperpla stic polyps Denies [place],Lung disease,renal disease Surgical History Surgery Date(Month/Year) Tonsillectomy Appy
[2025-04-20 11:01] LABS: Hemoglobin A1C 176.0122 umol/L; Total Hemoglobin (HGBA1C) 3556.2391 umol/L
[2025-04-20 11:18] LABS: Cholesterol 138 mg/dL (<200); HDL Cholesterol 39 mg/dL (>40); Triglycerides 108 mg/dL (<150)
[2025-04-20 11:59] LABS: Microalbum/Creatinine Ratio Ur 34.6 ug/mg cr (<30)
== END 2025-04-20 09:07 | disposition home or self-care (01) ==
LOC: HO.LAB 09:06
PROVIDERS: PCP Physician Assistant; Visit Provider Physician Assistant
DX: I10 Essential (primary) hypertension (principal); E78.5 Hyperlipidemia, unspecified; E11.9 Type 2 diabetes mellitus without complications
CPT/HCPCS: 36415; 80061; 82043; 82570; 83036; 84443

== ENCOUNTER 2025-04-27 14:12 | Outpatient (AMB) | payer MEDICARE, OTHER, SELFPAY ==
--- NOTE | 2025-04-27 14:16 | A.OFFPC_ITS ---
Vital Signs 04/27/25 14:29 Height 6 ft 1 in Weight 109.316 kg BMI 31.8 BP 112/60 Pulse 63 Pulse Source Pulse Oximeter Temp 97.4 F Temp Source Temporal Artery Scan Pulse Oximetry (%) 95 Oxygen Delivery Method Room Air Intake Visit Reasons: Sore Buttocks Retail Gift Card Merchandising Required: No Accompanied by: Self / Same As Patient Allergies animal dander Allergy (Intermediate, Verified 04/27/25 14:16) Itching environmental allergies Allergy (Intermediate, Verified 04/27/25 14:16) Sneezing Medication List - Last Reconciled 04/27/25 by HUGO Philip alprazolam 0.5 mg PO BID PRN atorvastatin 80 mg PO BEDTIME bisoprolol-hydrochlorothiazide 5-6.25 mg 1 tab PO DAILY blood sugar diagnostic (FreeStyle Lite Strips) 3 times a day coenzyme Q10 (CoQ-10) 100 mg PO DAILY foam bandage (Aquacel Foam) Cleanse wound well with ph spray and apply foam dressing daily insulin glargine (Basaglar KwikPen U-100 Insulin) 30 units subcut DAILY lancets (FreeStyle Lancets) 3 times a day pen needle, diabetic (BD Celina 2nd Gen Pen Needle) once a day primidone 50 mg PO BID 90 days rivaroxaban (Xarelto) 20 mg PO DAILY@1700 sertraline 50 mg PO DAILY Tobacco use date assessed: 04/15/25 HPI HPI Comments History of Present Illness Details 72-year-old male with history of CKD sta ge 3, diabetic polyneuropathy, dyslipidemia, hypertension, permanent atrial fibrillation, heart failure with preserved ejection fraction, PAD, with 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 He was seen in the office last week for evaluation of significant anxiety and panic. See prior note. He was prescribed sertraline 50 mg daily which he has been taking daily as prescribed. He has also been using alprazolam as needed but states he has been taking this every day twice a day. He is afraid he is going to run out but does find this very very helpful. He also started seeing a counselor. He has noted a sore on his buttock that has been ongoing for several months. While in the hospital in December, this was noted as stage I but has now ulcerated. There is no purulent drainage. It is uncomfortable when sitting. His has been changing Band-Aids daily. ROS: see hpi EXAM: Constitutional - Awake and Alert, No apparent distress Eyes - PERRL Cardiovascular - S1S2, RRR, No edema Respiratory - Normal lung expansion, Normal respiratory effort, No respiratory distress, CTA bilaterally Extremities - no calf tenderness bilaterally, no swelling Skin - Warm/Dry. shallow subcentimeter ulcerations, superficial, surrounded by dusky purple nonblanching discoloration. No purulent drainage Neurological - Alert & oriented x3 Psychological - Appropriate affect [facility] Medical History (Updated 04/29/25 @ 18:19 by HUGO Philip) Major depressive disorder Pleural effusion Persistent atrial fibrillation Atrial fibrillation by electrocardiogram Stroke (~2018) CKD (chronic kidney disease) stage 3, GFR 30-59 ml/min Obesity (BMI 30-39.9) Diabetic polyneuropathy associated with type 2 diabetes mellitus Dyslipidemia Hypertension Diabetic nephropathy associated with type 2 diabetes mellitus halfway (current) use of insulin Diabetes type 2, controlled Surgical History (Updated 04/14/25 @ 15:54 by Ivet Preston) History of colonoscopy (~02/02/20) Hx of appendectomy Hx of tonsillectomy Family History Father History of heart attack Mother No problems noted. Social History Household Members: Spouse Alcohol intake: never Comment: patient refusing alarms Patient Tobacco Use Status: Never used Tobacco e-Cigarette/Vaping Use: Never Used Advance Directives Date on File: 01/01/25 service: No Questionnaire Thrive Questionnaire Date Thrive assessed: 04/15/25 JOSEPHINE-7 AMB Questionnaire JOSEPHINE-7 Date JOSEPHINE - 7 assessed: 04/15/25 Source: Developed by Drs. Nas Patricio, Joann Harris, Ryan Palacios and colleagues, with an educational kolton from [employer]. Physical exam (Primary Care) Vital Signs: Last Vital Signs Temp 97.4 F 04/27/25 14:29 Pulse 63 04/27/25 14:29 BP 112/60 04/27/25 14:29 Pulse Ox 95 04/27/25 14:29 Oxygen Delivery Method Room Air 04/27/25 14:29 BMI result Body Mass Index 31.8 Tobacco/Smoking Status: Tobacco use Status Tobacco use date assessed 04/15/25 04/27/25 14:17 Patient Tobacco Use Status Never used Tobacco 04/27/25 14:17 e-Cigarette/Vaping Use Never Used 04/27/25 14:17 Thrive Assessment: Date of Thrive Assessment Date Thrive assessed 04/15/25 04/27/25 14:17 Coding Level of Care Code Est Pt Level 4 (24106) Diagnoses Decubitus ulcer of buttock, stage 2 L89.302 Major depressive disorder F32.9 Panic disorder F41.0 Assessment & Plan Assessment & Plan (1) Decubitus ulcer of buttock, stage 2: Code(s): L89.302 - Pressure ulcer of unspecified buttock, stage 2 Category: Medical (2) Major depressive disorder: Code(s): F32.9 - Major depressive disorder, single episode, unspecified Category: Medical Plan: Slowly improving. Continue sertraline 50 mg daily. Continue following with counselor. Follow-up as scheduled (3) Panic disorder: Code(s): F41.0 - Panic disorder [episodic paroxysmal anxiety] Category: Medical Plan: Continue following with counselor. Reinforce that alprazolam should only be used as needed. May continue as needed Plan Follow-up in the office as scheduled Orders: Referrals Wound Care Referral F32.9 - Major depressive disorder, single episode, unspecified, F41.0 - Panic disorder [episodic paroxysmal anxiety], L89.302 - Pressure ulcer of unspecified buttock, stage 2 Medications: New foam bandage (Aquacel Foam) Cleanse wound well with ph spray and apply foam dressing daily 10 ea 1RF L89.312 - Pressure ulcer of right buttock, stage 2
[2025-04-27 14:29] VITALS: BP 112/60; PULSE 63; TEMP 36.3; O2SAT 95; BMI 31.8
--- OUTSIDE RECORDS SUMMARY | 2025-04-27 16:35 | XMS_ITS | Patient Health Record ---
Author Organization [facility] Address [address] [place] [id number] Care Team Providers Care Scouts Name Role Phone Hesham (RETIRED) Artem GUZMAN Primary Care Provider Unavailable Nas Grimes Unavailable [phone] Reason For Referral No Information Medications Medication [...] Problem Status W/U Status Risk Notes Problem [id number] Encounter for screening for malignant neoplasm of colon (Z12.11) Active confirmed Problem 355258035 Long-term use of aspirin therapy (Z79.82) Active confirmed Problem [id number] Pre-procedural examination (Z01.818) Active confirmed Plan Of Treatment Future Test Test Name Order Date COLONOSCOPY 11/11/2019 Insurance Providers Payer Name Payer Address Payer Phone Subscriber Number Group Number Insured Name Patient Relationship to Insured Coverage Start Date Coverage End Date MED[place]ARE OF [place] [address] [facility] [address] [phone] [id number] AMELIA JOB Self - patient is the insured [facility] [address] [place] [phone] [id number] AMELIA JOB Self - patient is the insured Medical (General) History Medical History History ICD Code Stroke 01/2018 with a mild left hand weak ness Hx of kidney stones IDDM Hypertension Neg. colonoscopy in 2006 except hyperpla stic polyps Denies [place],Lung disease,renal disease Surgical History Surgery Date(Month/Year) Tonsillectomy Appy
== END 2025-04-27 14:52 | disposition home or self-care (01) ==
LOC: HO.HMCHD 14:12
PROVIDERS: PCP Physician Assistant; Visit Provider Physician Assistant
DX: L89.302 Pressure ulcer of unspecified buttock, stage 2 (principal); F32.9 Major depressive disorder, single episode, unspecified; F41.0 Panic disorder [episodic paroxysmal anxiety]

== ENCOUNTER → 2025-04-27 14:12 | Outpatient (BNVA) | payer MEDICARE, OTHER, SELFPAY | PROVIDERS: PCP Physician Assistant; Visit Provider Physician Assistant | DX: L89.302 Pressure ulcer of unspecified buttock, stage 2 (principal); F32.9 Major depressive disorder, single episode, unspecified; F41.0 Panic disorder [episodic paroxysmal anxiety]; Z79.899 Other long term (current) drug therapy | CPT/HCPCS: 99212 ==

== ENCOUNTER 2025-05-10 12:30 | Outpatient (AMB) | payer MEDICARE, OTHER, SELFPAY ==
[2025-05-10 12:54] VITALS: BP 130/68; PULSE 58; BMI 30.5
--- NOTE | 2025-05-10 12:54 | MHC.OFFVIS ---
Vital Signs 05/10/25 12:54 Height 6 ft 1 in Weight 231 lb 7.766 oz BMI 30.5 BP 130/68 Blood Pressure Location Lt brachial Position Sitting Pulse 58 Pulse Source Pulse Oximeter Intake Visit Reasons: 6 mth w/ ekg Allergies animal dander Allergy (Intermediate, Verified 04/27/25 14:16) Itching environmental allergies Allergy (Intermediate, Verified 04/27/25 14:16) Sneezing Medication List - Last Reconciled 05/10/25 by Javed Julio MD alprazolam 0.5 mg PO BID PRN atorvastatin 80 mg PO BEDTIME bisoprolol-hydrochlorothiazide 5-6.25 mg 1 tab PO DAILY blood sugar diagnostic (FreeStyle Lite Strips) 3 times a day foam bandage (Aquacel Foam) Cleanse wound well with ph spray and apply foam dressing daily insulin glargine (Basaglar KwikPen U-100 Insulin) 30 units subcut DAILY lancets (FreeStyle Lancets) 3 times a day pen needle, diabetic (BD Celina 2nd Gen Pen Needle) once a day primidone 50 mg PO BID 90 days rivaroxaban (Xarelto) 20 mg PO DAILY@1700 sertraline 50 mg PO DAILY trazodone 50 mg PO BEDTIME PRN HPI Comments Details: Job returns for follow-up regarding atrial fibrillation. In 2023, he was seen in consultation regarding atrial fibrillation. That time, echocardiogram had shown preserved LVEF. Many comorbidities. He was on rate control with beta-blockers and also on anticoagulation. However, earlier this year he was admitted to hospital with congestive heart failure. He was treated with diuretics and he lost lot of weight. Then there was a plan to restore the rhythm with cardioversion. He was put on amiodarone but when he actually came for the cardioversion procedure he was back in normal sinus rhythm. He states that he has stopped the amiodarone by himself. Still takes anticoagulation. Otherwise, for the most part he is doing well. He apparently used to drink alcohol lot but not in the last few months. 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 Social History Household Members: Spouse Alcohol intake: never Comment: patient refusing alarms Patient Tobacco Use Status: Never used Tobacco e-Cigarette/Vaping Use: Never Used Advance Directives Date on File: 01/01/25 service: No Review of Systems Const Denies weakness ENT Denies dizziness Card Denies chest pain, Denies chest pain with activity, Denies syncope, Denies rapid heart rate, Denies pedal edema, Denies edema, Denies leg edema, Denies lightheadedness, Denies palpitations, Denies dyspnea, Denies dyspnea on exertion and Denies orthopnea Resp Denies cough, Denies dyspnea and Denies dyspnea on exertion GI Denies hematochezia and Denies change in stool character Musc Denies abnormal gait, Denies muscle cramps, Denies muscle weakness, Denies numbness, Denies radiating pain into limb and Denies tingling Neuro Denies abnormal gait, Denies dizziness, Denies syncope, Denies numbness, Denies tingling and Denies weakness Endo Denies palpitations Physical Exam Vital Signs: Last Vital Signs Pulse 58 05/10/25 12:54 BP 130/68 05/10/25 12:54 BMI result Body Mass Index 30.5 Const General: comfortable and no acute distress Orientation/consciousness: patient oriented x3 HEENT Other: Unremarkable Head: Yes normal to inspection Neck Neck: Yes normal visual inspection Chest Chest palpation & inspection: normal inspection of the chest Resp Auscultation: clear to auscultation bilaterally Cardio Palpation: normal PMI Heart sounds: S1 normal heart sound present, S2 normal heart sound present, no gallops, no murmurs and no rubs GI Palpation (GI): Soft to palpation Back/Spine/Pelvis Other: unremarkable Skin General skin exam: no rashes or lesions noted Neuro General: patient oriented x3 Extrem Other: 1-2+ swelling General: Yes normal to inspection Psych Mental Status: mental status grossly normal Assessment & Plan Assessment & Plan (1) Persistent atrial fibrillation: Code(s): I48.19 - Other persistent atrial fibrillation Category: Medical Plan: By the most recent EKG from last month, sinus rhythm at 61/Min. In the EKG from January, he was in atrial flutter with variable block at 80/Min. In the EKG from December, atrial fibrillation at 108/Min. In the EKG from May 2024, atrial fibrillation at 71/Min. Prior to that, EKGs from 2018 and that showed sinus rhythm. We discussed about the fact that even though he is back to normal sinus rhythm there is a good chance that he will go back into atrial fibrillation in the future. After that, we discussed about ablation in detail and he is willing to consider that. We will refer to EP for the same. Somehow the Amiodarone got stopped and we will hold off as he is normal sinus rhythm. Continue anticoagulation. Continue beta-blockers. (2) Chronic heart failure with preserved ejection fraction: Code(s): I50.32 - Chronic diastolic (congestive) heart failure Category: Medical Plan: He was on Bumex but no longer listed. On hydrochlorothiazide as a combination pill with bisoprolol. He was on Jardiance but that was stopped for some reason. Resume that. Irbesartan can also be resumed. Patient believes as he lost lot of weight his blood pressure went quite low and that was reason why some meds were stopped. Hopefully he can tolerate these now. He was also on spironolactone and we will hold that for future. (3) Diabetes type 2, controlled: Code(s): E11.9 - Type 2 diabetes mellitus without complications Category: Medical Plan: Hemoglobin A1c is 6.7 %. On insulin. Jardiance as above. (4) Hypertension: Code(s): I10 - Essential (primary) hypertension Category: Medical Plan: Stable. (5) Dyslipidemia: Code(s): E78.5 - Hyperlipidemia, unspecified Category: Medical Plan: On statins. (6) Obesity (BMI 30-39.9): Code(s): E66.9 - Obesity, unspecified Category: Medical Plan: Looking at his historical weights, he was as much as 290 lb in October of this year. Currently only 230 lb. Suspected some combination of diuresis as well as fat/muscle mass loss. Anyway, that is a significant improvement. Hopefully, he can lose even more weight. Plan Discussion Notes During the visit, we discussed the patient's atrial fibrillation and the potential for future ablation to prevent recurrence. The patient was informed about the importance of monitoring blood pressure closely due to previous hypotension episodes. We also reviewed the patient's diabetes management, emphasizing the need for medication adjustments to ensure effective control. Patient was informed and verbally consented to the use of an ambient scribe for clinic note documentation during this visit. Orders: Orders Basic Metabolic Panel 2 Weeks I50.32 - Chronic diastolic (congestive) heart failure, I50.9 - Heart failure, unspecified B Type Natriuretic Peptide 2 Weeks I50.32 - Chronic diastolic (congestive) heart failure, I50.9 - Heart failure, unspecified Referrals Cardiac Electrophysiology Referral I48.91 - Unspecified atrial fibrillation Medications: New irbesartan 75 mg PO DAILY 90 tabs 1RF empagliflozin (Jardiance) 10 mg PO DAILY 90 tabs 3RF Patient Instructions: - Monitor blood pressure regularly and report any significant changes. - Follow up with EP regarding potential ablation for atrial fibrillation. - Review current medications with your healthcare provider to ensure optimal diabetes management. Coding Level of Care Code Est Pt Level 4 (51359) Complex EM visit Add On G2211 Diagnoses Persistent atrial fibrillation I48.19 Chronic heart failure with preserved ejection fraction I50.32 Diabetes type 2, controlled E11.9 Hypertension I10 Dyslipidemia E78.5 Obesity (BMI 30-39.9) E66.9
--- OUTSIDE RECORDS SUMMARY | 2025-05-10 16:34 | XMS_ITS | Patient Health Record ---
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 Role Phone Hesham (RETIRED) Artem GUZMAN Primary Care Provider Unavailable Nas Grimes Unavailable [phone] Reason For Referral No Information Medications Medication [...] Problem Status W/U Status Risk Notes Problem [id number] Encounter for screening for malignant neoplasm of colon (Z12.11) Active confirmed Problem [id number] Long-term use of aspirin therapy (Z79.82) Active confirmed Problem [id number] Pre-procedural examination (Z01.818) Active confirmed Plan Of Treatment Future Test Test Name Order Date COLONOSCOPY 11/11/2019 Insurance Providers Payer Name Payer Address Payer Phone Subscriber Number Group Number Insured Name Patient Relationship to Insured Coverage Start Date Coverage End Date MED[place]ARE OF [place] [address] [place] [address] [id number] AMELIA JOB Self - patient is the insured [facility] [address] [place] [phone] [id number] AMELIA JOB Self - patient is the insured Medical (General) History Medical History History ICD Code Stroke 01/2018 with a mild left hand weak ness Hx of kidney stones IDDM Hypertension Neg. colonoscopy in 2006 except hyperpla stic polyps Denies [place],Lung disease,renal disease Surgical History Surgery Date(Month/Year) Tonsillectomy Appy
== END 2025-05-10 13:24 | disposition home or self-care (01) ==
LOC: HO.HCS 12:31
PROVIDERS: PCP Family Medicine; Visit Provider Internal Medicine
DX: I48.19 Other persistent atrial fibrillation (principal); I50.32 Chronic diastolic (congestive) heart failure; E11.9 Type 2 diabetes mellitus without complications; I10 Essential (primary) hypertension; E78.5 Hyperlipidemia, unspecified; E66.9 Obesity, unspecified
CPT/HCPCS: 99214; G2211

== ENCOUNTER → 2025-05-10 12:30 | Outpatient (BNVA) | payer MEDICARE, OTHER, SELFPAY | PROVIDERS: PCP Family Medicine; Visit Provider Internal Medicine | DX: I48.19 Other persistent atrial fibrillation (principal); I50.32 Chronic diastolic (congestive) heart failure; I11.0 Hypertensive heart disease with heart failure; E11.9 Type 2 diabetes mellitus without complications; E78.5 Hyperlipidemia, unspecified; E66.9 Obesity, unspecified; Z68.30 Body mass index [BMI] 30.0-30.9, adult | CPT/HCPCS: 99212 ==

== ENCOUNTER 2025-05-16 09:10 | Outpatient (AMB) | payer MEDICARE, OTHER, SELFPAY ==
--- NOTE | 2025-05-16 09:21 | A.OFFPC_ITS ---
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 Required: No Accompanied by: Self / Same As Patient Allergies animal dander Allergy (Intermediate, Verified 05/16/25 09:21) Itching environmental allergies Allergy (Intermediate, Verified 05/16/25 09:21) Sneezing Medication List - Last Reconciled 05/16/25 by HUGO Philip alprazolam 0.5 mg PO BID PRN atorvastatin 80 mg PO BEDTIME bisoprolol-hydrochlorothiazide 5-6.25 mg 1 tab PO DAILY blood sugar diagnostic (FreeStyle Lite Strips) 3 times a day empagliflozin (Jardiance) 10 mg PO DAILY foam bandage (Aquacel Foam) Cleanse wound well with ph spray and apply foam dressing daily insulin glargine (Basaglar KwikPen U-100 Insulin) 30 units subcut DAILY irbesartan 75 mg PO DAILY lancets (FreeStyle Lancets) 3 times a day pen needle, diabetic (BD Celina 2nd Gen Pen Needle) once a day primidone 50 mg PO BID 90 days rivaroxaban (Xarelto) 20 mg PO DAILY@1700 sertraline 75 mg (1.5 x 50 mg) PO DAILY trazodone 50 mg PO BEDTIME PRN Tobacco use date assessed: 04/15/25 HPI HPI Comments History of Present Illness Details 72-year-old male with history of major d epressive disorder, anxiety disorder, CKD stage 3, diabetic polyneuropathy, dyslipidemia, hypertension, permanent atrial fibrillation, heart failure with preserved ejection fraction, PAD, with 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 Depression/anxiety-much improved. It started going to therapy about 1 month ago. He is awaiting an appointment with a psychiatrist. No SI/HI. He is 135 days sober which is also helping. Improvements in relationships with his 2 daughters and is working on relationship with his son. He has been taking sertraline 50 mg daily and is using alprazolam twice daily. Takes his 1st dose in the morning which he finds very helpful and improves his anxiety until about 17:00 and then he will take a 2nd dose at bedtime along with trazodone. He states he has been able to do more of activity/responsibilities that he previously enjoyed such as going to work until 17:00. He has been sleeping at least 6 hours which is much improved. 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 Stage II decubitus ulcer of the sacrum-she was unable to obtain pressure dressings along with cleansing spray but his has been covering the area nightly and reports significant improvement in pain. He is also using pillows to offload pressure. HFpEF-euvolemic. No longer on diuretics On Jardiance Hypertension-blood pressure 128/60. Compliant with bisoprolol- hydrochlorothiazide Permanent atrial fibrillation-on xarelto for anticoagulation, denies any bleeding episodes. Was scheduled for cardioversion, but had converted. No longer on amiodorone. On bisoprolol. Following with Dr. Julio Type 2 diabetes-last A1c 7.7%. On Basaglar 30 units daily. A1c 6.7%, Jardiance 10 mg Hyperlipidemia-atorvastatin AUD- in early remission. 135 days sober ROS: See HPI EXAM: Constitutional - Awake and Alert, No apparent distress Eyes - PERRL Cardiovascular - S1S2, RRR, No edema Respiratory - Normal lung expansion, Normal respiratory effort, No respiratory distress, CTA bilaterally Extremities - no calf tenderness bilaterally, no swelling Skin - Warm/Dry Neurological - Alert & oriented x3 Psychological - Appropriate affect [facility] Medical History (Updated 04/29/25 @ 18:19 by HUGO Philip) Major depressive disorder Pleural effusion Persistent atrial fibrillation Atrial fibrillation by electrocardiogram Stroke (~2018) CKD (chronic kidney disease) stage 3, GFR 30-59 ml/min Obesity (BMI 30-39.9) Diabetic polyneuropathy associated with type 2 diabetes mellitus Dyslipidemia Hypertension Diabetic nephropathy associated with type 2 diabetes mellitus assisted (current) use of insulin Diabetes type 2, controlled Surgical History (Updated 04/14/25 @ 15:54 by Ivet Preston) History of colonoscopy (~02/02/20) Hx of appendectomy Hx of tonsillectomy Family History Father History of heart attack Mother No problems noted. Social History Household Members: Spouse Alcohol intake: never Comment: patient refusing alarms Patient Tobacco Use Status: Never used Tobacco e-Cigarette/Vaping Use: Never Used Advance Directives Date on File: 01/01/25 service: No Questionnaire Thrive Questionnaire Date Thrive assessed: 04/15/25 JOSEPHINE-7 AMB Questionnaire JOSEPHINE-7 Date JOSEPHINE - 7 assessed: 04/15/25 Source: Developed by Drs. Nas Patricio, Joann Harris, Ryan Palacios and colleagues, with an educational kolton from [employer]. Physical exam (Primary Care) Vital Signs: Last Vital Signs Temp 97.0 F 05/16/25 09:26 Pulse 80 05/16/25 09:26 Resp 16 05/16/25 09:26 BP 128/60 05/16/25 09:26 Pulse Ox 98 05/16/25 09:26 Oxygen Delivery Method Room Air 05/16/25 09:26 BMI result Body Mass Index 30.9 Tobacco/Smoking Status: Tobacco use Status Tobacco use date assessed 04/15/25 05/16/25 09:21 Patient Tobacco Use Status Never used Tobacco 05/16/25 09:21 e-Cigarette/Vaping Use Never Used 05/16/25 09:21 Thrive Assessment: Date of Thrive Assessment Date Thrive assessed 04/15/25 05/16/25 09:21 Coding Level of Care Code Est Pt Level 4 (42564) Complex EM visit Add On G2211 Diagnoses Major depressive disorder F32.9 Panic disorder F41.0 Hypertension I10 Diabetes type 2, controlled E11.9 Stage II pressure ulcer of right buttock L89.312 Assessment & Plan Assessment & Plan (1) Major depressive disorder: Code(s): F32.9 - Major depressive disorder, single episode, unspecified Category: Medical Plan: Much improved. However not at goal. Increase sertraline to 75 mg daily, hopefully decrease the need for alprazolam. Follow-up with counselor and psychiatrist (2) Panic disorder: Code(s): F41.0 - Panic disorder [episodic paroxysmal anxiety] Category: Medical Plan: Can continue alprazolam. Refill provided, counseled on side effects. Follow-up with therapist and psychiatrist (3) Hypertension: Code(s): I10 - Essential (primary) hypertension Category: Medical Plan: Controlled. Continue irbesartan, bisoprolol-hydrochlorothiazide (4) Diabetes type 2, controlled: Code(s): E11.9 - Type 2 diabetes mellitus without complications Category: Medical Plan: Controlled. Continue Basaglar. Diabetic diet, eye exam is up-to-date (5) Stage II pressure ulcer of right buttock: Code(s): L89.312 - Pressure ulcer of right buttock, stage 2 Category: Medical Plan: Resolving. Continue with dressings and offloading Plan Follow-up in the office in 3 months with labs completed prior to visit Orders: Orders Basic Metabolic Panel 3 Months E11.9 - Type 2 diabetes mellitus without complications, I10 - Essential (primary) hypertension, I48.19 - Other persistent atrial fibrillation, L89.312 - Pressure ulcer of right buttock, stage 2, N18.30 - Chronic kidney disease, stage 3 unspecified Hemoglobin A1c 3 Months E11.9 - Type 2 diabetes mellitus without complications, I10 - Essential (primary) hypertension, I48.19 - Other persistent atrial fibrillation, L89.312 - Pressure ulcer of right buttock, stage 2, N18.30 - Chronic kidney disease, stage 3 unspecified Lipid Panel 3 Months E11.9 - Type 2 diabetes mellitus without complications, I10 - Essential (primary) hypertension, I48.19 - Other persistent atrial fibrillation, L89.312 - Pressure ulcer of right buttock, stage 2, N18.30 - Chronic kidney disease, stage 3 unspecified Liver Panel 3 Months E11.9 - Type 2 diabetes mellitus without complications, I10 - Essential (primary) hypertension, I48.19 - Other persistent atrial fibr illation, L89.312 - Pressure ulcer of right buttock, stage 2, N18.30 - Chronic kidney disease, stage 3 unspecified Medications: New sertraline 75 mg (1.5 x 50 mg) PO DAILY 135 tabs 0RF Discontinued sertraline Take 1/2 tab daily x 1 week, then take 1 tab daily Discontinued Reason: Doctor's Order 50 mg PO DAILY 90 tabs 0RF
[2025-05-16 09:26] VITALS: BP 128/60; PULSE 80; RESP 16; TEMP 36.1; O2SAT 98; BMI 30.9
--- OUTSIDE RECORDS SUMMARY | 2025-05-16 10:43 | XMS_ITS | Patient Health Record ---
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 Role Phone Hesham (RETIRED) Artem GUZMAN Primary Care Provider Unavailable Nas Grimes Unavailable [phone] Reason For Referral No Information Medications Medication [...] Problem Status W/U Status Risk Notes Problem [id number] Encounter for screening for malignant neoplasm of colon (Z12.11) Active confirmed Problem [id number] Long-term use of aspirin therapy (Z79.82) Active confirmed Problem [id number] Pre-procedural examination (Z01.818) Active confirmed Plan Of Treatment Future Test Test Name Order Date COLONOSCOPY 11/11/2019 Insurance Providers Payer Name Payer Address Payer Phone Subscriber Number Group Number Insured Name Patient Relationship to Insured Coverage Start Date Coverage End Date MED[place]ARE OF [place] [address] [place] [address] [id number] AMELIA JOB Self - patient is the insured [facility] [address] [place] [phone] [id number] AMELIA JOB Self - patient is the insured Medical (General) History Medical History History ICD Code Stroke 01/2018 with a mild left hand weak ness Hx of kidney stones IDDM Hypertension Neg. colonoscopy in 2006 except hyperpla stic polyps Denies [place],Lung disease,renal disease Surgical History Surgery Date(Month/Year) Tonsillectomy Appy
== END 2025-05-16 10:12 | disposition home or self-care (01) ==
LOC: HO.HMCHD 09:10
PROVIDERS: PCP Physician Assistant; Visit Provider Physician Assistant
DX: F32.9 Major depressive disorder, single episode, unspecified (principal); F41.0 Panic disorder [episodic paroxysmal anxiety]; I10 Essential (primary) hypertension; E11.9 Type 2 diabetes mellitus without complications; L89.312 Pressure ulcer of right buttock, stage 2

== ENCOUNTER → 2025-05-16 09:10 | Outpatient (BNVA) | payer MEDICARE, OTHER, SELFPAY | PROVIDERS: PCP Physician Assistant; Visit Provider Physician Assistant | DX: F32.9 Major depressive disorder, single episode, unspecified (principal); F41.0 Panic disorder [episodic paroxysmal anxiety]; I10 Essential (primary) hypertension; E11.9 Type 2 diabetes mellitus without complications; L89.312 Pressure ulcer of right buttock, stage 2 | CPT/HCPCS: 99212 ==

== ENCOUNTER 2025-05-27 19:18 | Emergency (ER) | payer MEDICARE, OTHER, SELFPAY ==
--- NOTE | ~2025-05-27 | US_ITS ---
CLINICAL HISTORY: R Lower Leg Pain Swelling Venous duplex ultrasound right lower extremity Comparison: None provided Findings: The visualized right deep veins are fully compressible with normal Doppler color flow and spectral tracings. Right peroneal vein is not well demonstrated. No popliteal cyst. There is lower extremity distal edema. IMPRESSION: 1. Negative for right lower extremity deep vein thrombosis. 2. Distal lower extremity soft tissue edema This document has been electronically signed by: Marty Steward III, MD PHD on 05/27/2025 23:35:16
--- NOTE | 2025-05-27 19:39 | ED.GENADULT ---
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 Patient reports pain began around 04:00 yesterday when he woke from sleep, pain began while lying in bed prior to bearing any weight. The patient denies any recent repetitive strain, falls, or other trauma. The patient reports pain was manageable while working throughout the day today however when returning home pain became more apparent/severe, prompting the patient to take Tylenol and meloxicam. The patient reports despite these interventions the pain persisted and he presents to the ED for evaluation. The patient denies associated fever/chills, erythema, nausea, vomiting, tenderness to palpation, recent sick contacts, or recent trauma. The patient reports he had similar pain of the left lower extremity approximately 6 months ago for which his PCP prescribed meloxicam over the phone, patient reports taking meloxicam for 3-5 days and symptoms resolved, denies other lower extremity pain or complaint until today. The patient denies recent travel or history of coagulopathy. Related Data Home Medications ?Medication ?Instructions ?Recorded ?Confirmed bisoprolol 5 1 tab PO DAILY 07/06/20 05/16/25 mg-hydrochlorothiazide 6.25 mg tablet atorvastatin 80 mg tablet 80 mg PO BEDTIME 01/02/25 05/16/25 insulin glargine 100 unit/mL (3 30 unit subcut DAILY 01/02/25 05/16/25 mL) subcutaneous pen (Basaglar KwikPen U-100 Insulin) Previous Rx's ?Medication ?Instructions ?Recorded blood sugar diagnostic (FreeStyle #300 ea 01/31/21 Lite Strips) lancets 28 gauge (FreeStyle #300 ea 01/31/21 Lancets) pen needle, diabetic 32 gauge x #100 ea 01/31/21 (BD Celina 2nd Gen Pen Needle) primidone 50 mg tablet 50 mg PO BID 90 days #180 tabs 03/08/25 foam bandage 3.2 X 3.2 (Aquacel #10 ea 04/27/25 Foam) rivaroxaban 20 mg tablet (Xarelto) 20 mg PO DAILY@1700 #90 tabs 05/06/25 trazodone 50 mg tablet 50 mg PO BEDTIME PRN sleep #90 tabs 05/06/25 empagliflozin 10 mg tablet 10 mg PO DAILY #90 tabs 05/10/25 (Jardiance) irbesartan 75 mg tablet 75 mg PO DAILY #90 tabs 05/10/25 sertraline 50 mg tablet 75 mg (1.5 x 50 mg) PO DAILY #135 05/16/25 tabs alprazolam 0.5 mg tablet 0.5 mg PO BID PRN anxiety #60 tabs 05/17/25 gabapentin 300 mg capsule 300 mg PO BID #14 caps 05/27/25 Allergies Allergy/AdvReac Type Severity Reaction Status Date / Time animal dander Allergy Intermediate Itching Verified 05/27/25 19:46 environmental allergies Allergy Intermediate Sneezing Verified 05/27/25 19:46 Review of Systems Review of Systems: Yes all other systems are reviewed and are negative [facility] Past Medical History Medical History (Updated 05/27/25 @ 23:59 by Steve Salomon PA-C) Major depressive disorder Pleural effusion Persistent atrial fibrillation Atrial fibrillation by electrocardiogram Stroke (~2017) CKD (chronic kidney disease) stage 3, GFR 30-59 ml/min Obesity (BMI 30-39.9) Diabetic polyneuropathy associated with type 2 diabetes mellitus Dyslipidemia Hypertension Diabetic nephropathy associated with type 2 diabetes mellitus rn long term care (current) use of insulin Diabetes type 2, controlled Surgical History (Updated 04/14/25 @ 15:54 by Ivet Preston) History of colonoscopy (~02/02/20) Hx of appendectomy Hx of tonsillectomy Family History Family History Father History of heart attack Mother No problems noted. Social History Social History Household Members: Spouse Unable to assess alcohol history related to: Unknown Alcohol intake: never Comment: patient refusing alarms Patient Tobacco Use Status: Never used Tobacco e-Cigarette/Vaping Use: Never Used Use of substances other than those prescribed or required for medical reasons: Unknown Advance Directives: No Advance Directives Information Provided: No Advance Directives Date on File: 01/01/25 service: No Physical Exam ED Vital Signs: Vital Signs - 24 hr 05/27/25 19:40 05/27/25 22:57 Temperature 97.4 F 97.7 F Pulse Rate 57 52 Respiratory Rate 16 16 Blood Pressure 135/77 139/60 Pulse Oximetry 97 99 Oxygen Delivery Method Room Air Room Air BMI result Body Mass Index 31.1 CONSTITUTIONAL: The patient appears non-toxic, well nourished and in no acute distress. Vital signs as documented. HEAD: Atraumatic, normocephalic. EYES: EOMs grossly intact, pupils equal, conjunctiva clear, no exudate. ENT: Nares patent, no discharge. Airway patent, no audible stridor, visible mucosa is pink and moist without noted lesions. NECK: Trachea is midline, no obvious masses or gross abnormalities. CHEST: Symmetric movement, normal appearance. LUNGS: LS present and CTAB, no w/r/r. Non-labored work of breathing. CARDIAC: Regular Rhythm, S1/S2 appreciated, no murmurs, rubs or gallops. ABDOMEN: Abdomen soft and non-tender x4 quadrants, no palpable masses or organomegaly. : Deferred. EXTREMITIES: RLE demonstrates chronic appearing 3+ pedal edema, without point tenderness, erythema, warmth, crepitus, or impaired range of motion. Distal CSM is intact. 2+ DP/PT pulses, no pain out of proportion or pallor. Normal tone, moves all extremities spontaneously without reported pain. No obvious acute injury or deformity noted. NEURO: Alert and oriented x3, CN II-XII appear grossly intact. Cerebellar Functioning grossly intact. No obvious sensory or motor deficits. Speech clear and appropriate. PSYCH: normal affect, appropriate eye contact, fluid speech, with appropriate response to questioning. No reported suicidality or homicidality. SKIN: Warm, dry, color appropriate, normal turgor. No rashes noted. Course Course Course Narrative: This is a rapid medical exam performed by Daria Pablo NP: Additional HPI, ROS, PE not included below will be deferred to primary provider. Patient is a 80y/o M pmhx of afib on Xarelto, HFpEF, PAD, CKD stage 3, T2DM with neuropathy, HTN presenting with complaint of throbbing pain to right lower leg between ankle and dove. Pain improved during the day when he was active, then worsened when he sat to watch TV. Plan: labs, u/s Medications Administered Discontinued Medications Generic Name Dose Route Start Last Admin Trade Name Paul PRN Reason Stop Dose Admin Acetaminophen 975 mg 05/27/25 23:28 05/27/25 23:42 Acetaminophen 325 Mg Tablet PO 05/27/25 23:29 975 mg ONCE ONE Administration Gabapentin 300 mg 05/27/25 23:26 05/27/25 23:42 Gabapentin 300 Mg Capsule PO 05/27/25 23:27 300 mg ONCE ONE Administration Lidocaine 1 patch 05/27/25 23:26 05/27/25 23:41 Lidocaine 4 % Patch Adh..Patch TRANSDERMA 05/27/25 23:27 1 patch ONCE ONE Administration Protocol Medical Decision Making Medical Decision Making MDM Narrative: 11:31 PM 05/27/2025 (Mario ARIAS): The patient is a 80-year-old male with a 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 Patient reports pain began around 04:00 yesterday when he woke from sleep, pain began while lying in bed prior to bearing any weight. The patient denies any recent repetitive strain, falls, or other trauma. The patient reports pain was manageable while working throughout the day today however when returning home pain became more apparent/severe, prompting the patient to take Tylenol and meloxicam. The patient reports despite these interventions the pain persisted and he presents to the ED for evaluation. The patient denies associated fever/chills, erythema, nausea, vomiting, tenderness to palpation, recent sick contacts, or recent trauma. The patient reports he had similar pain of the left lower extremity approximately 6 months ago for which his PCP prescribed meloxicam over the phone, patient reports taking meloxicam for 3-5 days and symptoms resolved, denies other lower extremity pain or complaint until today. The patient denies recent travel or history of coagulopathy. On exam the patient has chronic appearing 3+ pedal edema, without point tenderness, erythema, warmth, crepitus, or impaired range of motion. Distal CSM is intact. 2+ DP/PT pulses, no pain out of proportion or pallor. The patient's laboratory evaluation is reassuring, no leukocytosis, significant anemia, or significant electrolyte abnormality, patient's kidney function is near baseline. ProBNP is normal. The patient's INR is slightly elevated at 1.5, patient is on Xarelto. Patient was sent for lower extremity DVT study, and we will add on magnesium. Given the lack of improvement with anti-inflammatories, lack of point tenderness, and no recent trauma, pending unremarkable ultrasound and magnesium level, patient is most likely suffering from diabetic peripheral neuropathy symptoms. The patient will be treated with gabapentin 300 mg b.i.d. and instructed to follow up with PCP for continued management of his pain. 11:45 PM 05/27/2025 (Mario ARIAS): The patient's ultrasound has resulted and shows no evidence of DVT. Magnesium is pending. 11:54 PM 05/27/2025 (Mario ARIAS): The patient's magnesium is normal, patient will be discharged as described above. Admission/Observation Consideration of admission/observation: Escalation of care including admission/observation considered Lab Data MDM Lab Attestation statement: I reviewed the patient's lab results. 05/27/25 19:57 05/27/25 19:57 Labs: Lab Results 05/27/25 Range/Units 19:57 WBC 5.7 (4.8-10.8) X10*3/uL RBC 4.35 L (4.60-5.80) X10*6/uL Hgb 13.3 L (14.0-18.0) g/dl Hct 38.2 L (42.0-52.0) % MCV 87.8 (80.0-98.0) fL MCH 30.6 (27.0-33.0) pg MCHC 34.8 (31.0-36.0) g/dl RDW 15.8 (11.0-16.0) % Plt Count 202 (160-400) X10*3/uL MPV 9.1 L (9.4-12.4) fL Immature Gran % (Auto) 0.2 (0.0-0.4) % Neut % (Auto) 54.4 (45-73) % Lymph % (Auto) 30.4 (20-40) % [place] % (Auto) 10.5 (2-11) % Eos % (Auto) 4.0 (0-4) % Baso % (Auto) 0.5 (0-2) % Lymph # (Auto) 1.7 (1.2-4.9) X10*3/uL [place] # (Auto) 0.6 (0.1-1.2) X10*3/uL Eos # (Auto) 0.2 (0.0-0.4) X10*3/uL Baso # (Auto) 0.0 (0.0-0.2) X10*3/uL Abs Immat Gran (auto) 0.01 (0.00-0.03) X10*3/uL Absolute Neuts (auto) 3.1 (2.0-8.3) x10*3/uL Absolute Nucleated RBC 0.000 (0.0-0.012) X10*3/uL Nucleated RBC % (auto) 0.0 (0.0-0.2) /100WBC PT 17.4 H D (10.9-12.4) SEC INR 1.5 H (0.9-1.1) Sodium 133 L (135-145) mmol/L Potassium 3.9 (3.3-5.1) mmol/L Chloride 99 (96-108) mmol/L Carbon Dioxide 27 (22-29) mmol/L Anion Gap 11 L (12-20) BUN 20 H (9-16) mg/dL Creatinine 1.43 H (0.5-1.4) mg/dL Estim Creat Clear Calc 54.6 Estimated GFR 48 Random Glucose 142 H (60-115) mg/dL Uric Acid 3.6 (3.4-7.0) mg/dL Calcium 9.0 (8.4-10.2) mg/dL Magnesium 1.9 (1.6-2.6) mg/dL Total Bilirubin 0.3 (0.0-1.0) mg/dL AST 25 (5-37) U/L ALT 14 (0-40) U/L Alkaline Phosphatase 77 (39-117) U/L NT-Pro-B Natriuret Pep 291.9 (<300) pg/mL Total Protein 6.7 (6.5-8.0) g/dL Albumin 3.8 (3.5-5.0) g/dL Radiology Impression Discussion of test interpretation with radiology: I have reviewed the radiologist's reading. Radiologist Impression: Venous duplex ultrasound right lower extremity Comparison: None provided Findings: The visualized right deep veins are fully compressible with normal Doppler color flow and spectral tracings. Right peroneal vein is not well demonstrated. No popliteal cyst. There is lower extremity distal edema. IMPRESSION: 1. Negative for right lower extremity deep vein thrombosis. 2. Distal lower extremity soft tissue edema This document has been electronically signed by: Marty Steward III, MD PHD on 05/27/2025 23:35:16 External Record Review External record reviewed: Outpatient record and Prior outpatient labs Discharge Plan Discharge Clinical Impression: Neuropathic pain of right lower extremity Patient Disposition: Home, Self-Care Instructions: Diabetic Neuropathy (ED), Paresthesia (ED) Additional Instructions: Thank you for choosing [facility]'s Emergency Department for your care today. Thankfully your laboratory evaluation, ultrasound, and exam today is reassuring. At this time there is no indication for admission to the hospital or continued ED observation, and it is safe to discharge you home. There is no evidence of any acute blood clot, infection, or injury that is causing your symptoms. Given your history of diabetes, with lower extremity pain which is otherwise not reproducible on exam or influenced by ambulation, and lack of improvement with anti-inflammatory medication, you are most likely suffering from the onset of diabetic peripheral neuropathy. As a part of your care plan, you have also been prescribed gabapentin for neuropathic pain. Please take this medication as directed. This medicine can make you drowsy, you are not allowed to drive, operate heavy machinery, or be the sole care provider for children while taking this medication until you know how it effects you. Do not take other sedating medications until you know how this medication effects you. It is safe to continue taking meloxicam once daily as prescribed, and Tylenol 1000mg every 6 hours as needed for any additional pain. We have also treated you with a lidocaine patch, if you find this provides you significant relief additional patches can be purchased at any local pharmacy without a prescription. Please follow up with your primary care physician for re-evaluation, additional management of your symptoms, and continued preventative care. If you do not have a primary care physician, please call the [facility] at [phone] to establish a new primary care physician. While waiting to establish your new primary care physician, you can call our Walk[facility]in [facility] at [phone] for non-emergency needs. Please return to the emergency department if you develop a severe or sudden change in your symptoms, a fever over 100.4 that does not improve with Tylenol or Ibuprofen, recurrent vomiting, or any other new or worsening symptoms or concerns. Prescriptions: New gabapentin 300 mg capsule 300 mg PO BID Qty: 14 0RF No Action primidone 50 mg tablet 50 mg PO BID 90 Days Qty: 180 1RF Xarelto 20 mg tablet 20 mg PO DAILY@1700 Qty: 90 1RF Rx Instructions: must administer with evening meal trazodone 50 mg tablet 50 mg PO BEDTIME PRN (Reason: sleep) Qty: 90 3RF alprazolam 0.5 mg tablet 0.5 mg PO BID PRN (Reason: anxiety) Qty: 60 0RF insulin glargine [Basaglar KwikPen U-100 Insulin] 100 unit/mL (3 mL) insulin pen 30 unit subcut DAILY atorvastatin 80 mg tablet 80 mg PO BEDTIME bisoprolol-hydrochlorothiazide 5-6.25 mg tablet 1 tab PO DAILY (DME) lancets [FreeStyle Lancets] 28 gauge misc See Rx Instructions .ROUTE .MEDSUPPLY Qty: 300 3RF Rx Instructions: 3 times a day (DME) FreeStyle Lite Strips Strip See Rx Instructions .ROUTE .MEDSUPPLY Qty: 300 2RF Rx Instructions: 3 times a day (DME) pen needle, diabetic [BD Celina 2nd Gen Pen Needle] 32 gauge x 5/32 needle See Rx Instructions .MEDSUPPLY Qty: 100 4RF Rx Instructions: once a day sertraline 50 mg tablet 75 mg PO DAILY Qty: 135 0RF Jardiance 10 mg tablet 10 mg PO DAILY Qty: 90 3RF irbesartan 75 mg tablet 75 mg PO DAILY Qty: 90 1RF (DME) Aquacel Foam 3.2 X 3.2 bandage See Rx Instructions .Route Qty: 10 1RF Rx Instructions: Cleanse wound well with ph spray and apply foam dressing daily Referrals: Nadia Stallworth PA [Primary Care Provider, Hospitalist] Clinical Impression: Neuropathic pain of right lower extremity Print Language: Icelandic
[2025-05-27 19:40] VITALS: BP 135/77; PULSE 57; RESP 16; TEMP 36.3; O2SAT 97; BMI 31.1
[2025-05-27 20:01] LABS: MANUAL DIFF FLAG NO
[2025-05-27 20:07] LABS: Hematocrit 38.2 % (42.0-52.0); Hemoglobin 13.3 g/dl (14.0-18.0); Imm Gran Abs Auto 0.01 X10*3/uL (0.00-0.03); Imm Gran Pct Auto 0.2 % (0.0-0.4); Lymphocytes Absolute Auto 1.7 X10*3/uL (1.2-4.9); Mean Corpuscular HGB Conc 34.8 g/dl (31.0-36.0); Mean Corpuscular Hemoglobin 30.6 pg (27.0-33.0); Mean Corpuscular Volume 87.8 fL (80.0-98.0); NRBC Abs Auto 0.000 X10*3/uL (0.0-0.012); NRBC Pct Auto 0.0 /100WBC (0.0-0.2); Platelet Count 202 X10*3/uL (160-400); Red Blood Count 4.35 X10*6/uL (4.60-5.80); White Blood Count 5.7 X10*3/uL (4.8-10.8)
[2025-05-27 20:17] LABS: Alanine Aminotransferase 14 U/L (0-40); Albumin Level 3.8 g/dL (3.5-5.0); Alkaline Phosphatase 77 U/L (39-117); Anion Gap 11 (12-20); Aspartate Amino Transferase 25 U/L (5-37); Blood Urea Nitrogen 20 mg/dL (9-16); Calcium 9.0 mg/dL (8.4-10.2); Carbon Dioxide 27 mmol/L (22-29); Chloride 99 mmol/L (96-108); Creatinine Clr Calc Pharmacy 54.6; Estimated Glomerular Filt Rate 48; Potassium 3.9 mmol/L (3.3-5.1); Sodium 133 mmol/L (135-145); Total Protein 6.7 g/dL (6.5-8.0); Uric Acid 3.6 mg/dL (3.4-7.0)
[2025-05-27 20:19] LABS: INTERNATIONAL NORM RATIO 1.5 (0.9-1.1); Prothrombin Time 17.4 SEC (10.9-12.4)
[2025-05-27 20:24] LABS: NT Pro B Type Natriuretic Pept 291.9 pg/mL (<300)
--- OUTSIDE RECORDS SUMMARY | 2025-05-27 21:42 | XMS_ITS | Patient Health Record ---
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 Pilot Name Role Phone Hesham (RETIRED) Artem GUZMAN Primary Care Provider Unavailable Nas Grimes Unavailable [phone] Reason For Referral No Information Medications Medication [...] Problem Status W/U Status Risk Notes Problem 507536051 Encounter for screening for malignant neoplasm of colon (Z12.11) Active confirmed Problem 064039548 Long-term use of aspirin therapy (Z79.82) Active confirmed Problem 187504263789256 Pre-procedural examination (Z01.818) Active confirmed Plan Of Treatment Future Test Test Name Order Date COLONOSCOPY 11/11/2019 Insurance Providers Payer Name Payer Address Payer Phone Subscriber Number Group Number Insured Name Patient Relationship to Insured Coverage Start Date Coverage End Date MED[place]ARE OF [place] [address] [facility] [place] [address] [phone] [id number] AMELIA JOB Self - patient is the insured [facility] [address] [place] [address] [phone] [id number] AMELIA JOB Self - patient is the insured Medical (General) History Medical History History ICD Code Stroke 01/2018 with a mild left hand weak ness Hx of kidney stones IDDM Hypertension Neg. colonoscopy in 2006 except hyperpla stic polyps Denies [place],Lung disease,renal disease Surgical History Surgery Date(Month/Year) Tonsillectomy Appy
[2025-05-27 22:57] VITALS: BP 139/60; PULSE 52; RESP 16; TEMP 36.5; O2SAT 99
[2025-05-27] MEDS: Lidocaine 4 % Patch ADH..PATCH 1 PATCH TRANSDERMA (23:41)
[2025-05-27 23:52] LABS: Magnesium 1.9 mg/dL (1.6-2.6)
[2025-05-28 00:06] VITALS: BP 139/60; PULSE 52; RESP 16; TEMP 36.5; O2SAT 99
== END 2025-05-28 00:07 | disposition home or self-care (01) ==
PROVIDERS: Physician Assistant; Registered Nurse Emergency; Emergency Provider Emergency Medicine; PCP Physician Assistant
DX: G57.91 Unspecified mononeuropathy of right lower limb (principal); M79.604 Pain in right leg; R60.0 Localized edema; R06.02 Shortness of breath; I10 Essential (primary) hypertension; Z79.899 Other long term (current) drug therapy
CPT/HCPCS: 36415; 80053; 83735; 83880; 84550; 85025; 85610; 93971; 99284

== ENCOUNTER → 2025-05-27 22:21 | Outpatient (BNV) | payer MEDICARE, OTHER, SELFPAY | PROVIDERS: Emergency Provider Emergency Medicine; PCP Physician Assistant; Visit Provider Radiology Diagnostic Radiology | DX: M79.604 Pain in right leg (principal); R60.0 Localized edema | CPT/HCPCS: 93971 ==

== ENCOUNTER → 2025-06-08 13:04 | Outpatient (BNVA) | payer MEDICARE, OTHER, SELFPAY | PROVIDERS: PCP Physician Assistant | DX: F41.9 Anxiety disorder, unspecified (principal); F10.21 Alcohol dependence, in remission | CPT/HCPCS: 99211 ==

== ENCOUNTER 2025-06-16 09:37 | Outpatient (REF) | payer MEDICARE, OTHER, SELFPAY ==
[2025-06-16 11:08] LABS: NT Pro B Type Natriuretic Pept 213.4 pg/mL (<300)
[2025-06-16 11:13] LABS: Anion Gap 12 (12-20); Blood Urea Nitrogen 13 mg/dL (9-16); Calcium 9.4 mg/dL (8.4-10.2); Carbon Dioxide 27 mmol/L (22-29); Chloride 102 mmol/L (96-108); Estimated Glomerular Filt Rate > 60; Potassium 3.0 mmol/L (3.3-5.1); Sodium 138 mmol/L (135-145)
== END 2025-06-16 09:38 | disposition home or self-care (01) ==
LOC: HO.LAB 09:37
PROVIDERS: PCP Physician Assistant; Visit Provider Internal Medicine
DX: I50.32 Chronic diastolic (congestive) heart failure (principal)
CPT/HCPCS: 36415; 80048; 83880

== ENCOUNTER → 2025-06-22 13:51 | Outpatient (BNVA) | payer MEDICARE, OTHER, SELFPAY | PROVIDERS: PCP Physician Assistant | DX: Z71.9 Counseling, unspecified (principal) | CPT/HCPCS: 99211 ==

== ENCOUNTER 2025-07-13 09:14 | Outpatient (REF) | payer MEDICARE, OTHER, SELFPAY ==
[2025-07-13 10:29] LABS: Magnesium 2.0 mg/dL (1.6-2.6); Potassium 4.2 mmol/L (3.3-5.1)
--- OUTSIDE RECORDS SUMMARY | 2025-07-13 17:09 | XMS_ITS | Patient Health Record ---
Author Organization [facility] Address [address] [place] [phone] Care Team Providers Care Training And Development Specialist Name Role Phone Hesham (RETIRED) Artem GUZMAN Primary Care Provider Unavailable Nsa Grimes Unavailable [phone] Reason For Referral No Information Medications Medication SIG (Take, Route, Frequency, Duration) Notes Start Date End Date Status Irbesartan 300 MG Tablet Oral; Duration: 90 Active Trulicity 1.5 MG/0.5ML Solution Pen-injector Subcutaneous; Duration: 28 Active Atorvastatin Calcium 80 MG Tablet take 1 tablet by mouth once daily Oral; Duration: 90 Active Bisoprolol-hydroCHLOROthiaz jillian 5-6.25 MG Tablet TAKE 1 TABLET BY MOUTH ONCE DAILY Oral; Duration: 90 Active Clopidogrel Bisulfate 75 MG Tablet TAKE 1 TABLET BY MOUTH ONCE DAILY Oral; Duration: 90 Active amLODIPine Besylate 5 MG Tablet TAKE 1 TABLET BY MOUTH ONCE DAILY Oral; Duration: 90 Active Aspir-81 Active Jardiance 25 MG Tablet take 1 tablet by mouth every morning Oral; Duration: 90 Active Toujeo SoloStar 300 UNIT/ML Solution Pen-injector Subcutaneous; Duration: 39 Active Social History Tobacco Use: Social History Observation Description Date Details (start date - stop date) Former Smoker NA - NA Social History Drugs/Alcohol: Social Info Question Answer Notes Alcohol Screen Did you have a drink containing alcohol in the past year? Yes How often did you have a drink containing alcohol in the past year? 2 to 4 times a month (2 points) How many drinks did you have on a typical day when you were drinking in the past year? 3 or 4 drinks (1 point) Points 3 Interpretation Negative Tobacco Use: Social Info Question Answer Notes Tobacco Use/Smoking Patient is a former smoker How long has it been since you last smoked? 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 [employer] Section Notes: Nonsmoker; no sig alcohol Problems Problem Type SNOMED Code ICD Code Onset Dates Problem Status W/U Status Risk Notes Problem Screening for malignant neoplasm of colon (351636508) Encounter for screening for malignant neoplasm of colon (Z12.11) Active confirmed Problem Long-term current use of antiplatelet drug (235283554749058 ) Long-term use of aspirin therapy (Z79.82) Active confirmed Problem Pre-procedure evaluation check (380217033) Pre-procedural examination (Z01.818) Active confirmed Plan Of Treatment Future Test Test Name Order Date COLONOSCOPY 11/11/2019 Insurance Providers Payer Name Payer Address Payer Phone Subscriber Number Group Number Insured Name Patient Relationship to Insured Coverage Start Date Coverage End Date [place]ARE OF [place] [address] [place] [address] [id number] AMELIA, JOB Self - patient is the insured [facility] [address] [place] [address] [phone] [id number] AMELIA, JOB Self - patient is the insured Medical (General) History Medical History History ICD Code Stroke 01/2018 with a mild left hand weak ness Hx of kidney stones IDDM Hypertension Neg. colonoscopy in 2006 except hyperpla stic polyps Denies [place],Lung disease,renal disease Surgical History Surgery Date(Month/Year) Tonsillectomy Appy
== END 2025-07-13 09:15 | disposition home or self-care (01) ==
LOC: HO.LAB 09:14
PROVIDERS: PCP Physician Assistant; Visit Provider Physician Assistant
DX: E87.6 Hypokalemia (principal)
CPT/HCPCS: 36415; 83735; 84132

== ENCOUNTER 2025-07-17 09:37 | Emergency (ER) | payer MEDICARE, OTHER, SELFPAY ==
[2025-07-17 09:57] VITALS: BP 175/81; PULSE 70; RESP 16; TEMP 36.4; O2SAT 99; BMI 31.7
--- OUTSIDE RECORDS SUMMARY | 2025-07-17 10:27 | XMS_ITS | Patient Health Record ---
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: Nonsmoker; no sig alcohol Problems Problem Type SNOMED Code ICD Code Onset Dates Problem Status W/U Status Risk Notes Problem Screening for malignant neoplasm of colon (896956536) Encounter for screening for malignant neoplasm of colon (Z12.11) Active confirmed Problem Long-term current use of antiplatelet drug (681418120034673 ) Long-term use of aspirin therapy (Z79.82) Active confirmed Problem Pre-procedure evaluation check (683836518) Pre-procedural examination (Z01.818) Active confirmed Plan Of Treatment Future Test Test Name Order Date COLONOSCOPY 11/11/2019 Insurance Providers Payer Name Payer Address Payer Phone Subscriber Number Group Number Insured Name Patient Relationship to Insured Coverage Start Date Coverage End Date [place] [address] [place] [address] [id number] AMELIA, JOB Self - patient is the insured [facility] [address] [place] [phone] [id number] AMELIA, JOB Self - patient is the insured Medical (General) History Medical History History ICD Code Stroke 01/2018 with a mild left hand weak ness Hx of kidney stones IDDM Hypertension Neg. colonoscopy in 2006 except hyperpla stic polyps Denies [place],Lung disease,renal disease Surgical History Surgery Date(Month/Year) Tonsillectomy Appy
--- NOTE | 2025-07-17 10:40 | PC.NURSE ---
patient changed over by this RN in bathroom. patient is calm and cooperative, alert and oriented x3. patient denies SI/HI, states he has increased depression.
--- NOTE | 2025-07-17 10:54 | ED.PSYCH ---
HPI - Psych General Chief Complaint: Psychiatric Symptoms Stated Complaint: mental breakdown Time Seen by Provider: 07/17/25 10:49 Source: patient, RN notes reviewed and old records reviewed Mode of arrival: ambulatory Limitations: no limitations History of Present Illness ED Provider: Bev HPI Narrative: Patient is a 80-year-old male presenting to the emergency department with complaint of recently increasing depression and anhedonia. States that he typically looks forward to the holidays but is currently not wanting to celebrate Thanksgiving with his family. Also cites increased work stress. Saw his PCP and requested additional alprazolam which PCP declined. Spoke with the psychiatrist at [facility] who added hydroxyzine but patient states this is not changing his symptoms. He reports feeling as though he does not want to live anymore at times but adamantly denies suicidal ideation or any thoughts of harming himself. Denies homicidal ideation, auditory or visual hallucinations. States he has not used any alcohol since his admission to the hospital in December and has no interest in using any drugs or alcohol currently. Denies any physical complaints. Reports feeling generally exhausted with daily activities and is also reporting difficulty sleeping. Feels he requires inpatient admission for medication adjustments. MD complaint: feels depressed Related Data Home Medications ?Medication ?Instructions ?Recorded ?Confirmed insulin glargine 100 unit/mL (3 30 unit subcut DAILY 01/02/25 07/17/25 mL) subcutaneous pen (Basaglar KwikPen U-100 Insulin) rivaroxaban 20 mg tablet (Xarelto) 20 mg PO QPM 07/17/25 07/17/25 sertraline 100 mg tablet 100 mg PO DAILY 07/17/25 07/17/25 Previous Rx's ?Medication ?Instructions ?Recorded primidone 50 mg tablet 50 mg PO BID 90 days #180 tabs 03/08/25 empagliflozin 10 mg tablet 10 mg PO DAILY #90 tabs 05/10/25 (Jardiance) irbesartan 75 mg tablet 75 mg PO DAILY #90 tabs 05/10/25 atorvastatin 80 mg tablet 80 mg PO BEDTIME 90 days #90 tabs 06/03/25 potassium chloride 20 mEq 20 meq PO DAILY #90 tabs 06/17/25 tablet,extended release(part/cryst) (Klor-Con M) alprazolam 0.5 mg tablet 0.5 mg PO BID PRN anxiety #60 tabs 06/22/25 bisoprolol 5 1 tab PO DAILY #90 tabs 07/08/25 mg-hydrochlorothiazide 6.25 mg tablet Allergies Allergy/AdvReac Type Severity Reaction Status Date / Time animal dander Allergy Intermediate Itching Verified 07/17/25 09:58 environmental allergies Allergy Intermediate Sneezing Verified 07/17/25 09:58 Review of Systems Review of Systems: As per HPI Yes all other systems are reviewed and are negative Constitutional: Constitutional: Reports as per HPI [facility] Past Medical History Medical History (Updated 07/19/25 @ 00:00 by Benedicto Mishra) Major depressive disorder Pleural effusion Persistent atrial fibrillation Atrial fibrillation by electrocardiogram Stroke (~2017) CKD (chronic kidney disease) stage 3, GFR 30-59 ml/min Obesity (BMI 30-39.9) Diabetic polyneuropathy associated with type 2 diabetes mellitus Dyslipidemia Hypertension Diabetic 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 Social History Social History Household Members: Spouse Alcohol intake: never Comment: patient refusing alarms Patient Tobacco Use Status: Never used Tobacco e-Cigarette/Vaping Use: Never Used Advance Directives: Yes Advance Directives Information Provided: No Advance Directives on File: No Advance Directives Date on File: 01/01/25 service: No Physical Exam Vital Signs: Vital Signs: Last Vital Signs Temp 98.2 F 07/18/25 10:47 Pulse 63 07/18/25 10:47 Resp 18 07/18/25 10:47 BP 165/80 H 07/18/25 10:47 Pulse Ox 98 07/18/25 10:47 O2 Del Method Room Air 07/18/25 06:00 BMI result Body Mass Index 31.7 Vital signs have been reviewed and appear to be correct. Blood pressure elevated. Heart rate normal. Respiratory rate normal. Temperature normal. Oxygen saturation normal. Const: General: cooperative, healthy appearing and no acute distress Orientation/consciousness: oriented to person, oriented to place, oriented to time and patient oriented x3 Limitations: no limitations HEENT: Head: Yes normocephalic and Yes atraumatic Ears: external ears normal General nose exam: Normal external nose present Face and sinus: Yes face symmetric Mouth: oropharynx normal and moist mucous membranes Throat: Yes uvula midline Eyes: Pupils: Equal, round and reactive pupils present Neck: Neck: Yes normal visual inspection and Yes supple Resp: Effort & Inspection: normal respiratory effort and able to speak in complete sentences Auscultation: clear to auscultation bilaterally Cardio: Rate: regular rate Rhythm: regular rhythm Heart sounds: S1 normal heart sound present and S2 normal heart sound present GI: Palpation (GI): Soft to palpation and nontender Auscultation: normoactive bowel sounds : General: Yes no CVA tenderness Back/Spine/Pelvis: Back: no CVA tenderness Skin: General skin exam: elasticity normal and turgor normal Neuro: General: oriented to person, oriented to place, oriented to time, patient oriented x3, moves all extremities, no focal motor deficits and CN's II-XI intact bilaterally Cranial nerves: Yes Equal, round and reactive pupils present Cognition (Neuro): normal cognition Extrem: General: Yes full ROM, Yes no pedal edema and Yes no calf tenderness Psych: Appearance: grossly normal Mental Status: mental status grossly normal Speech and movement: Normal speech and movement present Affect: normal affect Attitude: cooperative Thought process: Normal thought process present Thought content: suicidality, no homicidality, no hallucinations and Depressive thoughts present Insight: Good insight present (Psych) Judgement: Good judgement present (Psych) Course Reevaluation(s) Reevaluation #1: Time: 06:58 Date: 07/18/25 Provider: Campbell Koroma MD Patient in physician observation for psychiatric evaluation.? No acute events reported overnight. No current complaints. VS stable.? Patient is in bed search status/pending CARE team evaluation. Will continue to monitor. Reevaluation #2: 07/18/2025 10:15 seen by crisis again patient will be discharged to respite in [place], this will end the ED observation status Time: 10:15 Medications Administered Discontinued Medications Generic Name Dose Route Start Last Admin Trade Name Freq PRN Reason Stop Dose Admin Acetaminophen 650 mg 07/18/25 01:29 07/18/25 01:37 Acetaminophen 325 Mg Tablet PO 07/18/25 01:30 650 mg ONCE ONE Administration Alprazolam 0.5 mg 07/17/25 13:09 07/17/25 13:18 Alprazolam 0.5 Mg Tablet PO 07/17/25 13:10 0.5 mg ONCE ONE Administration Alprazolam 0.5 mg 07/17/25 14:07 07/18/25 00:55 Alprazolam 0.5 Mg Tablet PO 0.5 mg BID PRN Administration Anxiety Atorvastatin Calcium 80 mg 07/17/25 21:00 07/17/25 22:48 Atorvastatin Calcium 80 Mg Tablet PO 80 mg BEDTIME ANDRAE Administration Empagliflozin 10 mg 07/17/25 14:15 07/18/25 08:51 Empagliflozin 10 Mg Tablet PO 10 mg DAILY ANDRAE Administration Hydrochlorothiazide 6.25 mg 07/18/25 09:00 07/18/25 08:51 Hydrochlorothiazide 12.5 Mg Tablet PO 6.25 mg DAILY ANDRAE Administration Insulin Glargine 30 unit 07/17/25 14:15 07/18/25 08:50 Insulin Glargine,Hum.Rec.Anlog 100 Unit/Ml 10 Ml Vial SUBCUT 30 unit DAILY ANDRAE Administration Melatonin 6 mg 07/18/25 01:29 07/18/25 01:37 Melatonin 3 Mg Tablet PO 07/18/25 01:30 6 mg ONCE ONE Administration Metoprolol Tartrate 25 mg 07/17/25 21:00 07/18/25 08:51 Metoprolol Tartrate 25 Mg Tablet PO 25 mg BID ANDRAE Administration Potassium Chloride 20 meq 07/17/25 14:15 07/18/25 08:51 Potassium Chloride Er 20 Meq Tab.Er.Prt PO 20 meq DAILY ANDRAE Administration Primidone 50 mg 07/17/25 14:15 07/18/25 08:47 Primidone 50 Mg Tablet PO 50 mg BID ANDRAE Administration Rivaroxaban 20 mg 07/17/25 17:00 07/17/25 16:53 Rivaroxaban 20 Mg Tablet PO 20 mg DAILY@1700 ANDRAE Administration Sertraline HCl 100 mg 07/17/25 14:15 07/18/25 08:47 Sertraline Hcl 100 Mg Tablet PO 100 mg DAILY ANRDAE Administration Valsartan 40 mg 07/18/25 09:00 07/18/25 08:47 Valsartan 40 Mg Tablet PO 40 mg DAILY ANDRAE Administration Protocol Medical Decision Making Medical Decision Making [facility] Narrative: Patient is a 80-year-old male presenting to the emergency department with complaint of recently increasing depression and anhedonia. On exam patient is awake, A+Ox3, VS WNL, afebrile, normal neurological exam without focal deficits, physical exam findings as above. Given reported symptoms and physical exam findings, initial differential includes but is not limited to depression, anxiety. Will plan for medical clearance, then CARE team evaluation. Labs grossly within normal limits, ethanol negative. UDS positive for benzos and barbiturates. Will medically clear patient at this time for CARE team evaluation and place on physician observation. Patient seen by CARE team, they do not feel he requires or would benefit from inpatient admission but are recommending respite which patient is agreeable to. Patient requesting to be moved out of the pod and back into the ED as he reports orthopnea at baseline and cannot sleep laying flat on the beds. rough rib grader notified. Differential Diagnosis Differential Diagnoses: The differential diagnosis associated with the presentation includes as per [facility] Admission/Observation Consideration of admission/observation: Escalation of care including admission/observation considered Consult Healthcare Provider Management of the patient was discussed with: Behavioral Health Provider Lab Data [facility] Lab Attestation statement: I reviewed the patient's lab results. as per [facility] 07/17/25 11:21 07/17/25 11:21 Labs: Lab Results 07/17/25 07/17/25 07/17/25 Range/Units 11:21 11:54 12:15 WBC 5.9 (4.8-10.8) X10*3/uL RBC 4.98 (4.60-5.80) X10*6/uL Hgb 14.6 (14.0-18.0) g/dl Hct 45.0 (42.0-52.0) % MCV 90.4 (80.0-98.0) fL MCH 29.3 (27.0-33.0) pg MCHC 32.4 (31.0-36.0) g/dl RDW 14.1 (11.0-16.0) % Plt Count 197 (160-400) X10*3/uL MPV 9.1 L (9.4-12.4) fL Immature Gran % (Auto) 0.2 (0.0-0.4) % Neut % (Auto) 76.0 H (45-73) % Lymph % (Auto) 15.0 L (20-40) % Haywood % (Auto) 7.1 (2-11) % Eos % (Auto) 1.2 (0-4) % Baso % (Auto) 0.5 (0-2) % Lymph # (Auto) 0.9 L (1.2-4.9) X10*3/uL Haywood # (Auto) 0.4 (0.1-1.2) X10*3/uL Eos # (Auto) 0.1 (0.0-0.4) X10*3/uL Baso # (Auto) 0.0 (0.0-0.2) X10*3/uL Abs Immat Gran (auto) 0.01 (0.00-0.03) X10*3/uL Absolute Neuts (auto) 4.5 (2.0-8.3) x10*3/uL Absolute Nucleated RBC 0.000 (0.0-0.012) X10*3/uL Nucleated RBC % (auto) 0.0 (0.0-0.2) /100WBC Sodium 136 (135-145) mmol/L Potassium 3.9 (3.3-5.1) mmol/L Chloride 102 (96-108) mmol/L Carbon Dioxide 27 (22-29) mmol/L Anion Gap 11 L (12-20) BUN 16 (9-16) mg/dL Creatinine 1.04 (0.5-1.4) mg/dL Estim Creat Clear Calc 75.7 Estimated GFR > 60 POC Glucose 131 H (60-115) mg/dL Random Glucose 158 H (60-115) mg/dL Calcium 9.4 (8.4-10.2) mg/dL Total Bilirubin 0.8 (0.0-1.0) mg/dL AST 25 (5-37) U/L ALT 14 (0-40) U/L Alkaline Phosphatase 77 (39-117) U/L Total Protein 7.2 (6.5-8.0) g/dL Albumin 4.3 (3.5-5.0) g/dL Urine Color Yellow Urine Appearance Clear Urine pH 6.5 (5.0-9.0) Ur Specific Alden 1.025 (1.005-1.025) Urine Protein Trace (Neg-Trace) mg/dL Urine Glucose (UA) >=1000 H (Negative) mg/dL Urine Ketones Negative (Negative) mg/dL Urine Blood Negative (Negative) Urine Nitrite Negative (Negative) Ur Leukocyte Esterase Negative (Negative) Urine RBC 0-2 (0-2) /HPF Urine WBC 0-5 (0-5) /HPF Ur Squamous Epith Cells 0-2 (0-2) /HPF Urine Bacteria None Seen (None Seen) Hyaline Casts 0-2 (0-2) /LPF Urine Opiates Screen Not Detected (Not Detect) Ur Buprenorphine Scrn Not Detected (Not Detect) ng/mL Ur Oxycodone Screen Not Detected (Not Detect) ng/mL Urine Methadone Screen Not Detected (Not Detect) ng/mL Urine Fentanyl Screen Not Detected (Not Detect) Ur Barbiturates Screen POSITIVE H (Not Detect) Ur Phencyclidine Scrn Not Detected (Not Detect) Ur Amphetamines Screen Not Detected (Not Detect) U Benzodiazepines Scrn POSITIVE H (Not Detect) Urine Cocaine Screen Not Detected (Not Detect) U Marijuana (THC) Screen Not Detected (Not Detect) Ethyl Alcohol < 10 mg/dL External Record Review External record reviewed: Inpatient record, Office record and Outpatient record Discharge Plan Discharge Clinical Impression: Depression Patient Disposition: Xfer Other Transfer Details: [facility] Respite Instructions: Depression (ED) Prescriptions: No Action primidone 50 mg tablet 50 mg PO BID 90 Days Qty: 180 1RF atorvastatin 80 mg tablet 80 mg PO BEDTIME 90 Days Qty: 90 1RF potassium chloride [Klor-Con M20] 20 mEq tablet,ER particles/crystals 20 meq PO DAILY Qty: 90 1RF alprazolam 0.5 mg tablet 0.5 mg PO BID PRN (Reason: anxiety) Qty: 60 0RF bisoprolol-hydrochlorothiazide 5-6.25 mg tablet 1 tab PO DAILY Qty: 90 1RF insulin glargine [Basaglar KwikPen U-100 Insulin] 100 unit/mL (3 mL) insulin pen 30 unit subcut DAILY sertraline 100 mg tablet 100 mg PO DAILY Xarelto 20 mg tablet 20 mg PO QPM Jardiance 10 mg tablet 10 mg PO DAILY Qty: 90 3RF irbesartan 75 mg tablet 75 mg PO DAILY Qty: 90 1RF Referrals: Nadia Stallworth PA [Primary Care Provider, Hospitalist] Interventions: [place]-Suicide Risk Severity Scale Last Done: 07/17/25 11:58 ED Discharge Assessment Last Done: 07/18/25 10:47 Discharge Date/Time: 07/18/25 11:03 Print Language: Chilean
[2025-07-17 11:24] LABS: MANUAL DIFF FLAG NO
[2025-07-17 11:27] LABS: Hematocrit 45.0 % (42.0-52.0); Hemoglobin 14.6 g/dl (14.0-18.0); Imm Gran Abs Auto 0.01 X10*3/uL (0.00-0.03); Imm Gran Pct Auto 0.2 % (0.0-0.4); Lymphocytes Absolute Auto 0.9 X10*3/uL (1.2-4.9); Mean Corpuscular HGB Conc 32.4 g/dl (31.0-36.0); Mean Corpuscular Hemoglobin 29.3 pg (27.0-33.0); Mean Corpuscular Volume 90.4 fL (80.0-98.0); NRBC Abs Auto 0.000 X10*3/uL (0.0-0.012); NRBC Pct Auto 0.0 /100WBC (0.0-0.2); Platelet Count 197 X10*3/uL (160-400); Red Blood Count 4.98 X10*6/uL (4.60-5.80); White Blood Count 5.9 X10*3/uL (4.8-10.8)
[2025-07-17 11:39] LABS: Alanine Aminotransferase 14 U/L (0-40); Albumin Level 4.3 g/dL (3.5-5.0); Alkaline Phosphatase 77 U/L (39-117); Anion Gap 11 (12-20); Aspartate Amino Transferase 25 U/L (5-37); Blood Urea Nitrogen 16 mg/dL (9-16); Calcium 9.4 mg/dL (8.4-10.2); Carbon Dioxide 27 mmol/L (22-29); Chloride 102 mmol/L (96-108); Creatinine Clr Calc Pharmacy 75.7; Estimated Glomerular Filt Rate > 60; Potassium 3.9 mmol/L (3.3-5.1); Sodium 136 mmol/L (135-145); Total Protein 7.2 g/dL (6.5-8.0)
[2025-07-17 12:01] LABS: Appearance Urine Clear; Glucose Urine UA >=1000 mg/dL (Negative); PH 6.5 (5.0-9.0); Specific Gravity - Urine 1.025 (1.005-1.025); UMIC TRIGGER UA YES
[2025-07-17 12:18] LABS: Glucose, Whole Blood 131 mg/dL (60-115)
[2025-07-17 12:20] LABS: Cannabinoid Screen Urine Not Detected (Not Detect)
[2025-07-17] MEDS: Potassium Chloride ER 20 MEQ TAB.ER.PRT PO (14:46)
[2025-07-17 22:10] VITALS: BP 97/57; PULSE 58; RESP 13; O2SAT 93
--- NOTE | 2025-07-18 01:48 | PC.NURSE ---
Pt requested PRN aprazolam. Medicated per OCT. Pt reporting headache 12/02 and difficulty sleeping. notified and meds ordered. Pt medicated per OCT. Pt moved to room 11 d/t difficulties sleeping being in the hospital.
[2025-07-18 06:00] VITALS: BP 103/57; PULSE 60; RESP 14; TEMP 36.6; O2SAT 94
[2025-07-18 08:47] VITALS: BP 165/80
[2025-07-18] MEDS: Insulin Glargine,Hum.rec.anlog 100 UNIT/ML 10 ML VIAL 30 UNIT SUBCUT (08:50)
[2025-07-18 08:51] VITALS: BP 165/80; PULSE 63
[2025-07-18] MEDS: Potassium Chloride ER 20 MEQ TAB.ER.PRT PO (08:51)
--- NOTE | 2025-07-18 10:40 | MHC.CARE ---
Pt has been accepted to the [facility] on [address] in [facility] for a 1:30PM arrival time.? [facility] stressed that pt must report to the ACCS with ALL his medications in their original med bottles. Both pt and his were advised of this.? Pt?s reported that she was a bit overwhelmed with this as pt has his meds in a med minder box, pt maintains that he has his meds in their labeled original med bottles and he only stocks 2 weeks at a time in his med minder.? Pt?s reports there may be some medications in his basked of med bottles he no longer takes. Pt will be discharged to his home so he may gather his medications in their original, labeled, bottles, and his clothes to prepare for a 1:30 ACCS arrival time.? A print out of pt?s medications has been given to pt so he may cross reference his medications at home against the list. Pt?s provided her cell number
[2025-07-18 10:47] VITALS: BP 165/80; PULSE 63; RESP 18; TEMP 36.8; O2SAT 98
== END 2025-07-18 11:03 | disposition other institution (70) ==
PROVIDERS: Registered Nurse Emergency; Emergency Provider Emergency Medicine Emergency Medical Services; PCP Physician Assistant
DX: F33.1 Major depressive disorder, recurrent, moderate (principal); R45.84 Anhedonia; E11.9 Type 2 diabetes mellitus without complications; Z56.3 Stressful work schedule; Z79.4 Long term (current) use of insulin; Z79.899 Other long term (current) drug therapy; Z51.81 Encounter for therapeutic drug level monitoring
CPT/HCPCS: 36415; 80053; 80307; 81001; 81003; 82947; 85025; 99285; S9485

== ENCOUNTER 2025-08-09 10:09 | Outpatient (AMB) | payer MEDICARE, OTHER, SELFPAY ==
--- NOTE | 2025-08-09 10:19 | A.OFFPC_ITS ---
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 Accompanied by: Self / Same As Patient Allergies animal dander Allergy (Intermediate, Verified 08/09/25 10:19) Itching environmental allergies Allergy (Intermediate, Verified 08/09/25 10:19) Sneezing Medication List - Last Reconciled 08/09/25 by HUGO Philip alprazolam 0.5 mg PO BID PRN atorvastatin 80 mg PO BEDTIME 90 days bisoprolol-hydrochlorothiazide 5-6.25 mg 1 tab PO DAILY bupropion HCl XL 150 mg PO QAM coenzyme Q10 (Co Q-10) 100 mg PO DAILY empagliflozin (Jardiance) 10 mg PO DAILY gabapentin 300 mg PO BID hydroxyzine HCl 10 mg PO BID PRN insulin glargine (Basaglar KwikPen U-100 Insulin) 30 units subcut DAILY irbesartan 75 mg PO DAILY ketoconazole 2% 1 appl topical potassium chloride ER (Klor-Con M) 20 mEq PO DAILY primidone 50 mg PO BID 90 days rivaroxaban (Xarelto) 20 mg PO QPM sertraline 100 mg PO DAILY Tobacco use date assessed: 04/15/25 HPI HPI Comments History of Present Illness Details 72-year-old male with history of major d epressive disorder, anxiety disorder, CKD stage 3, diabetic polyneuropathy, dyslipidemia, hypertension, permanent atrial fibrillation, heart failure with preserved ejection fraction, PAD, with 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 Depression/anxiety-feels he is improving. Good and bad days. 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 2nd daughter better relationship since he is going to counseling and psychiatry q2-3w, Shaan Christiansen ([facility]). Still issues with his son. Holding a grudge about prior employment. Improving with increased dose of sertraline 100mg daily. Takes xanax prn but often needs this twice daily. Sleeping well with this as well. Still family issues with his son HFpEF-euvolemic. No longer on diuretics. On Jardiance Hypertension-blood pressure 130/68. Compliant with bisoprolol- hydrochlorothiazide Permanent atrial fibrillation-on xarelto for anticoagulation, denies any bleeding episodes. Was scheduled for cardioversion, but had converted. No longer on amiodorone. On bisoprolol. Following with Dr. Julio. Will be undergoing ablation with [facility] Type 2 diabetes-last A1c 7.7%. On Basaglar 30 units daily. A1c 6.7%, Jardiance 10 mg Hyperlipidemia-atorvastatin AUD- in early remission. 7 months sober. Concerns: None ROS: See HPI EXAM: Constitutional - Awake and Alert, No apparent distress Eyes - PERRL Cardiovascular - S1S2, RRR, No edema Respiratory - Normal lung expansion, Normal respiratory effort, No respiratory distress, CTA bilaterally Extremities - no calf tenderness bilaterally, no swelling Skin - Warm/Dry Neurological - Alert & oriented x3 Psychological - Appropriate affect [facility] Medical History (Updated 07/19/25 @ 00:00 by Benedicto Mishra) Major depressive disorder Pleural effusion Persistent atrial fibrillation Atrial fibrillation by electrocardiogram Stroke (~2018) CKD (chronic kidney disease) stage 3, GFR 30-59 ml/min Obesity (BMI 30-39.9) Diabetic polyneuropathy associated with type 2 diabetes mellitus Dyslipidemia Hypertension 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 Social History Household Members: Spouse Alcohol intake: never Comment: patient refusing alarms Patient Tobacco Use Status: Never used Tobacco e-Cigarette/Vaping Use: Never Used Advance Directives Date on File: 01/01/25 service: No Questionnaire Thrive Questionnaire Date Thrive assessed: 04/15/25 JOSEPHINE-7 AMB Questionnaire JOSEPHINE-7 Date JOSEPHINE - 7 assessed: 04/15/25 Source: Developed by Drs. Nas Patricio, Joann Harris, Ryan Palacios and colleagues, with an educational kolton from [employer]. Physical exam (Primary Care) Vital Signs: Last Vital Signs Temp 97.4 F 08/09/25 10:20 Pulse 61 08/09/25 10:20 Resp 16 08/09/25 10:20 BP 130/68 08/09/25 10:20 Pulse Ox 99 08/09/25 10:20 Oxygen Delivery Method Room Air 08/09/25 10:20 BMI result Body Mass Index 31.6 Tobacco/Smoking Status: Tobacco use Status Tobacco use date assessed 04/15/25 08/09/25 10:26 Patient Tobacco Use Status Never used Tobacco 08/09/25 10:26 e-Cigarette/Vaping Use Never Used 08/09/25 10:26 Thrive Assessment: Date of Thrive Assessment Date Thrive assessed 04/15/25 08/09/25 10:26 Coding Level of Care Code Est Pt Level 4 (00209) Add On Problem Visit Only Diagnoses Major depressive disorder F32.9 Panic disorder F41.0 Hypertension I10 Diabetes type 2, controlled E11.9 Assessment & Plan Assessment & Plan (1) Major depressive disorder: Code(s): F32.9 - Major depressive disorder, single episode, unspecified Category: Medical Plan: Much improved. Continue on sertraline 100 mg daily. Alprazolam as needed. Continue following with [facility] for counseling and psychiatry. No alarm symptoms in office today (2) Panic disorder: Code(s): F41.0 - Panic disorder [episodic paroxysmal anxiety] Category: Medical Plan: Can continue alprazolam. Discussed that alprazolam should only be managed by 1 provider in this case most appropriate for his psychiatrist to manage. Declined refill. Follow-up with therapist and psychiatrist (3) Hypertension: Code(s): I10 - Essential (primary) hypertension Category: Medical Plan: Controlled. Continue irbesartan, bisoprolol-hydrochlorothiazide (4) Diabetes type 2, controlled: Code(s): E11.9 - Type 2 diabetes mellitus without complications Category: Medical Plan: Controlled. Continue Basaglar. Diabetic diet, eye exam is up-to-date Plan Follow-up in the office in 3 months with labs completed prior to visit
[2025-08-09 10:20] VITALS: BP 130/68; PULSE 61; RESP 16; TEMP 36.3; O2SAT 99; BMI 31.6
--- OUTSIDE RECORDS SUMMARY | 2025-08-09 12:33 | XMS_ITS | Patient Health Record ---
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 [employer] Section Notes: Nonsmoker; no sig alcohol Problems Problem Type SNOMED Code ICD Code Onset Dates Problem Status W/U Status Risk Notes Problem Screening for malignant neoplasm of colon (685701499) Encounter for screening for malignant neoplasm of colon (Z12.11) Active confirmed Problem Long-term current use of antiplatelet drug (201086992204763 ) Long-term use of aspirin therapy (Z79.82) Active confirmed Problem Pre-procedure evaluation check (236604594) Pre-procedural examination (Z01.818) Active confirmed Plan Of Treatment Future Test Test Name Order Date COLONOSCOPY 11/11/2019 Insurance Providers Payer Name Payer Address Payer Phone Subscriber Number Group Number Insured Name Patient Relationship to Insured Coverage Start Date Coverage End Date MEDICARE OF [place] [address] [place] [address] [phone] [id number] AMELIA, JOB Self - patient is the insured [facility] [address] [place] [phone] [id number] AMELIA, JOB Self - patient is the insured Medical (General) History Medical History History ICD Code Stroke 01/2018 with a mild left hand weak ness Hx of kidney stones IDDM Hypertension Neg. colonoscopy in 2006 except hyperpla stic polyps Denies PR,Lung disease,renal disease Surgical History Surgery Date(Month/Year) Tonsillectomy Appy
== END 2025-08-09 11:12 | disposition home or self-care (01) ==
LOC: HO.HMCHD 10:10
PROVIDERS: PCP Physician Assistant; Visit Provider Physician Assistant
DX: F32.9 Major depressive disorder, single episode, unspecified (principal); F41.0 Panic disorder [episodic paroxysmal anxiety]; I10 Essential (primary) hypertension; E11.9 Type 2 diabetes mellitus without complications

== ENCOUNTER → 2025-08-09 10:09 | Outpatient (BNVA) | payer MEDICARE, OTHER, SELFPAY | PROVIDERS: PCP Physician Assistant; Visit Provider Physician Assistant | DX: F32.9 Major depressive disorder, single episode, unspecified (principal); F41.0 Panic disorder [episodic paroxysmal anxiety]; I10 Essential (primary) hypertension; E11.9 Type 2 diabetes mellitus without complications; Z79.899 Other long term (current) drug therapy | CPT/HCPCS: 99212 ==